=== PATIENT | female | born 1955 | race Caucasian/White ===

== ENCOUNTER 2017-09-30 11:03 | Emergency (ER) | payer OTHER ==
[2017-09-30] MEDS ORDERED: TETANUS/DIPHTHERIA/PERTUSSIS 0.5 ML SYRINGE IM ONE (11:33)
--- NOTE | 2017-09-30 11:38 | ED Physician Documentation ---
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 : None HEENT: None Psych: Depression Musculoskeletal: None Derm: None - Past Surgical History Past Surgical History: Yes - Present Medications Home Medications: Ambulatory Orders Medication Instructions Recorded Confirmed Aspirin [Aspir 81] 81 mg PO DAILY 11/28/14 01/01/16 Levothyroxine [Synthroid] 100 mcg PO DAILY 11/28/14 01/01/16 Metformin HCl 500 mg PO DAILY 11/28/14 01/01/16 Sertraline HCl [Zoloft] 100 mg PO DAILY 11/28/14 01/01/16 hydroCHLOROthiazide 1 tab PO DAILY 09/30/17 09/30/17 [Hydrochlorothiazide] - Allergies Allergies/Adverse Reactions: Allergies Allergy/AdvReac Type Severity Reaction Status Date / Time No Known Drug Allergies Allergy Verified 01/01/16 17:44 - Social History Does the pt smoke?: No Smoking Status: Never smoker Does the pt drink ETOH?: No Does the pt have substance abuse?: No - Immunizations Immunizations are current?: Yes - POLST Patient has POLST: No PD ED PE NORMAL - Vitals Vital signs reviewed: Yes - Extremities Extremities: Other (L 5th finger approx 1 cm flap lac to tip of finger, MSV intact, no FB seen or palpated, MSV intact) Results - Vitals Vitals: Vital Signs - 24 hr 09/30/17 11:16 Temperature 36.3 C L Heart Rate 65 Respiratory 16 Rate Blood Pressure 168/84 H O2 Saturation 100 Oxygen O2 Source Room air Departure - Departure Disposition: 01 Home, Self Care Clinical Impression: Laceration Condition: Good Instructions: ED Laceration Hand Comments: Leave the steri strips on until they fall off on their own in about a week You can trim the edges if they peel up. May wash your hands normally Please watch the wound for signs of infection such as redness swelling and discharge - return if infection develops Your tetanus shot was updated - please let your PMD know to update your records
[2017-09-30 12:53] VITALS: BP 138/76
== END 2017-09-30 12:54 | disposition home or self-care (01) ==
LOC: ED 11:03
DX: S61.217A Laceration without foreign body of left little finger without damage to nail, initial encounter (principal); W27.8XXA Contact with other nonpowered hand tool, initial encounter; Z23 Encounter for immunization; I10 Essential (primary) hypertension; E11.9 Type 2 diabetes mellitus without complications; Z79.84 Long term (current) use of oral hypoglycemic drugs; Z79.82 Long term (current) use of aspirin
CPT/HCPCS: 90471; 99282; 99283

== ENCOUNTER 2019-10-21 02:43 | Outpatient (CLI) | payer OTHER | END 2019-10-21 02:44 | disposition critical access hospital (66) | LOC: EMS 02:43 | PROVIDERS: ATTEND Surgery | DX: R07.9 Chest pain, unspecified (principal); R50.9 Fever, unspecified | CPT/HCPCS: A0425; A0427 ==

== ENCOUNTER 2019-10-21 03:05 | Inpatient (IN) | payer MEDICARE, OTHER ==
--- NOTE | 2019-10-21 03:02 | ED Physician Documentation ---
History of Present Illness - Stated complaint Stated Complaint: CP, COUGH - History obtained from History obtained from: Patient (84-year-old female who presents via ambulance with a chief complaint of cough and fever for several days she works at a [id number] she is very concerned that she could have COVID-19. She has a history of hypertension non-[id number] diabetes and hypothyroidism. She denies any headache, neck pain, rashes denies any syncopal episodes her main c omplaint is fever and cough.) Review of Systems Constitutional: reports: Fever Eyes: reports: Reviewed and negative Ears: reports: Reviewed and negative Nose: reports: Reviewed and negative Throat: reports: Reviewed and negative Cardiac: reports: Reviewed and negative Respiratory: reports: Cough GI: reports: Reviewed and negative : reports: Reviewed and negative Skin: reports: Reviewed and negative Musculoskeletal: reports: Reviewed and negative Neurologic: reports: Reviewed and negative Psychiatric: reports: Reviewed and negative Endocrine: reports: Reviewed and negative Immunocompromised: reports: Reviewed and negative PD PAST MEDICAL HISTORY - Present Medications Home Medications: Ambulatory Orders Medication Instructions Recorded Confirmed Aspirin [Aspir 81] 81 mg PO DAILY 11/28/14 10/21/19 Levothyroxine [Synthroid] 125 mcg PO DAILY 11/28/14 10/21/19 Metformin HCl 500 mg PO DAILY 11/28/14 10/21/19 Sertraline HCl [Zoloft] 100 mg PO DAILY 11/28/14 10/21/19 hydroCHLOROthiazide 1 tab PO DAILY 09/30/17 10/21/19 [Hydrochlorothiazide] Calcium/D3/Zinc/Copper/Sunshine 2 each PO BID 10/21/19 10/21/19 [Citracal-D3 Maximum Plus Caplt] Multivit with Calcium,Iron,Min 1 each PO DAILY 10/21/19 10/21/19 [One Daily Women's] - Allergies Allergies/Adverse Reactions: Allergies Allergy/AdvReac Type Severity Reaction Status Date / Time lisinopril AdvReac Rash Verified 10/21/19 05:19 PD ED PE NORMAL - Vitals Vital signs reviewed: Yes - General General: Alert and oriented X 3, No acute distress, Well developed/nourished - HEENT HEENT: Atraumatic, PERRL, Pharynx benign - Neck Neck: Supple, no meningeal sign - Cardiac Cardiac: RRR, No murmur, Strong equal pulses - Respiratory Respiratory: No respiratory distress, Clear bilaterally - Abdomen Abdomen: Normal bowel sounds, Soft, Non tender, Non distended, No organomegaly - Back Back: No CVA TTP, No spinal TTP - Derm Derm: Normal color, Warm and dry, No rash - Extremities Extremities: No deformity - Neuro Neuro: Alert and oriented X 3, access registrar 2-12 intact, No motor deficit, No sensory deficit, Normal speech - Psych Psych: Normal mood, Normal affect Results - Vitals Vitals: Vital Signs - 24 hr 10/21/19 10/21/19 10/21/19 03:15 03:44 04:15 Temperature 38.3 C H Heart Rate 70 79 64 Respiratory 15 16 15 Rate Blood Pressure 121/79 100/87 H 109/68 O2 Saturation 96 97 97 10/21/19 10/21/19 10/21/19 04:27 04:34 04:36 Temperature 37.2 C Heart Rate 60 Respiratory 19 16 Rate Blood Pressure 109/68 O2 Saturation 97 86 L 98 Oxygen O2 Source Room air - EKG (time done) 03:16 Rate: Other (no stemi) - Labs Labs: Laboratory Tests 10/21/19 10/21/19 10/21/19 03:25 03:25 03:25 WBC 13.5 H RBC 3.64 L Hgb 10.5 L Hct 31.4 L MCV 86.3 MCH 28.8 MCHC 33.4 RDW 13.1 Plt Count 329 MPV 10.4 Neut # (Auto) 10.2 H Lymph # (Auto) 2.1 [place] # (Auto) 1.1 H Eos # (Auto) 0.0 Baso # (Auto) 0.0 Absolute Nucleated RBC 0.00 Nucleated RBC % 0.0 PT 16.4 H INR 1.5 H APTT 29.2 Sodium 133 L Potassium 2.1 L* Chloride 90 L Carbon Dioxide 26 Anion Gap 17.0 H BUN 18 Creatinine 1.0 Estimated GFR (MDRD) 55 L Glucose 146 H Lactic Acid Calcium 7.2 L Total Bilirubin 1.1 H AST 57 H ALT 36 Alkaline Phosphatase 146 H Total Creatine Kinase 255 Troponin I High Sens B-Natriuretic Peptide Total Protein 8.1 Albumin 3.3 Globulin 4.8 H Albumin/Globulin Ratio 0.7 L Lipase 31 Urine Color Urine Clarity Urine pH Ur Specific [place] Urine Protein Urine Glucose (UA) Urine Ketones Urine Occult Blood Urine Nitrite Urine Bilirubin Urine Urobilinogen Ur Leukocyte Esterase Urine RBC Urine WBC Ur Squamous Epith Cells Urine Bacteria Urine Casts Ur Microscopic Review Urine Culture Comments Urine Opiates Screen Ur Oxycodone Screen Urine Methadone Screen Ur Propoxyphene Screen Ur Barbiturates Screen Ur Tricyclics Screen Ur Phencyclidine Scrn Ur Amphetamine Screen U Methamphetamines Scrn U Benzodiazepines Scrn Urine Cocaine Screen U Cannabinoids Screen Ethyl Alcohol < 5.0 Influenza A (Rapid) Influenza B (Rapid) 10/21/19 10/21/19 10/21/19 03:25 03:25 03:25 WBC RBC Hgb Hct MCV MCH MCHC RDW Plt Count MPV Neut # (Auto) Lymph # (Auto) [place] # (Auto) Eos # (Auto) Baso # (Auto) Absolute Nucleated RBC Nucleated RBC % PT INR APTT Sodium Potassium Chloride Carbon Dioxide Anion Gap BUN Creatinine Estimated GFR (MDRD) Glucose Lactic Acid 1.2 Calcium Total Bilirubin AST ALT Alkaline Phosphatase Total Creatine Kinase Troponin I High Sens 58.9 H* B-Natriuretic Peptide 94 Total Protein Albumin Globulin Albumin/Globulin Ratio Lipase Urine Color Urine Clarity Urine pH Ur Specific [place] Urine Protein Urine Glucose (UA) Urine Ketones Urine Occult Blood Urine Nitrite Urine Bilirubin Urine Urobilinogen Ur Leukocyte Esterase Urine RBC Urine WBC Ur Squamous Epith Cells Urine Bacteria Urine Casts Ur Microscopic Review Urine Culture Comments Urine Opiates Screen Ur Oxycodone Screen Urine Methadone Screen Ur Propoxyphene Screen Ur Barbiturates Screen Ur Tricyclics Screen Ur Phencyclidine Scrn Ur Amphetamine Screen U Methamphetamines Scrn U Benzodiazepines Scrn Urine Cocaine Screen U Cannabinoids Screen Ethyl Alcohol Influenza A (Rapid) Influenza B (Rapid) 10/21/19 10/21/19 03:32 03:55 WBC RBC Hgb Hct MCV MCH MCHC RDW Plt Count MPV Neut # (Auto) Lymph # (Auto) [place] # (Auto) Eos # (Auto) Baso # (Auto) Absolute Nucleated RBC Nucleated RBC % PT INR APTT Sodium Potassium Chloride Carbon Dioxide Anion Gap BUN Creatinine Estimated GFR (MDRD) Glucose Lactic Acid Calcium Total Bilirubin AST ALT Alkaline Phosphatase Total Creatine Kinase Troponin I High Sens B-Natriuretic Peptide Total Protein Albumin Globulin Albumin/Globulin Ratio Lipase Urine Color DARK YELLOW Urine Clarity SL. CLOUDY Urine pH 6.0 Ur Specific [place] >=1.030 H Urine Protein 100 H Urine Glucose (UA) NEGATIVE Urine Ketones TRACE Urine Occult Blood MODERATE H Urine Nitrite NEGATIVE Urine Bilirubin NEGATIVE Urine Urobilinogen 0.2 (NORMAL) Ur Leukocyte Esterase MODERATE H Urine RBC 6-10 H Urine WBC 6-10 H Ur Squamous Epith Cells MANY Squamous H Urine Bacteria Few Urine Casts 3-5 Hyaline Casts Ur Microscopic Review INDICATED Urine Culture Comments NOT INDICATED Urine Opiates Screen NEGATIVE Ur Oxycodone Screen NEGATIVE Urine Methadone Screen NEGATIVE Ur Propoxyphene Screen NEGATIVE Ur Barbiturates Screen NEGATIVE Ur Tricyclics Screen NEGATIVE Ur Phencyclidine Scrn NEGATIVE Ur Amphetamine Screen NEGATIVE U Methamphetamines Scrn NEGATIVE U Benzodiazepines Scrn NEGATIVE Urine Cocaine Screen NEGATIVE U Cannabinoids Screen NEGATIVE Ethyl Alcohol Influenza A (Rapid) Negative Influenza B (Rapid) Negative PD MEDICAL DECISION MAKING - ED course Complexity details: considered differential (Pneumonia, viral infection, viral bronchitis, COVID-19) - Consults Consults: Consulted (name) (racecourse barrier attendant at [facility] dr. nusrat penn. he does not recommend emergent tranfer or lab technologist for this patient. recommends admission here for observation and inpatient echo.) - Critical Care Time(min): 30 Time Includes: Direct patient care, Review records, Reassess patient, Document care, Coordinate care, Medical consult Data interpretation: CXR Procedures included in critical care time: Peripheral IV Procedures excluded from critical care time: EKG Departure - Departure Disposition: 66 [facility] DC/Xfer Clinical Impression: Hypokalemia, Hyponatremia, Elevated troponin Pneumonia Qualifiers: Pneumonia type: due to unspecified organism Laterality: left Lung location: lower lobe of lung Qualified Code(s): J18.9 - Pneumonia, unspecified organism Leukocytosis Qualifiers: Leukocytosis type: unspecified Qualified Code(s): D72.829 - Elevated white blood cell count, unspecified Condition: Stable
[2019-10-21] MEDS ORDERED: SODIUM CHLORIDE 0.9% 1,000 ML IV STA (03:27)
[2019-10-21] MEDS ORDERED: cefTRIAXone 1 GM in SODIUM CHLORIDE 0.9% MINIBAG 100 ML IV STA (03:27)
[2019-10-21] MEDS ORDERED: ACETAMINOPHEN 325 MG TABLET PO STA (03:27)
[2019-10-21 03:46] LABS: BASOPHILS % (AUTO) 0.2 %; HGB - HEMOGLOBIN 10.5 g/dL (12.0-16.0); LYMPHOCYTES # (AUTO) 2.1 10^3/uL (1.5-3.5); LYMPHOCYTES % (AUTO) 15.5 %; MEAN CORPUSCULAR HEMOGLOBIN 28.8 pg (27.0-31.0); MEAN CORPUSCULAR HGB CONC 33.4 g/dL (32.0-36.0); MEAN CORPUSCULAR VOLUME 86.3 fL (81.0-99.0); MEAN PLATELET VOLUME 10.4 fL (7.9-10.8); MONOCYTES # (AUTO) 1.1 10^3/uL (0.0-1.0); MONOCYTES % (AUTO) 8.1 %; NEUTROPHILS # (AUTO) 10.2 10^3/uL (1.5-6.6); NEUTROPHILS % (AUTO) 75.4 %; PLT - PLATELET COUNT 329 10^3/uL (130-450); RED BLOOD COUNT 3.64 10^6/uL (4.20-5.40); RED CELL DISTRIBUTION WIDTH 13.1 % (12.0-15.0); WHITE BLOOD COUNT 13.5 x10^3/uL (4.8-10.8)
[2019-10-21 03:51] LABS: INR 1.5 (0.8-1.2); PT - PROTHROMBIN TIME 16.4 secs (9.9-12.6)
[2019-10-21 03:58] LABS: PARTIAL THROMBOPLASTIN TIME 29.2 secs (24.9-33.3)
--- NOTE | 2019-10-21 04:06 | XRAY Report ---
Reason: fever cough Procedure Date: 10/21/2019 Accession Number: [id number] / [id number] Procedure: XR - Chest 1 View X-Ray CPT Code: 33917 Final Report FULL RESULT: EXAM: CHEST RADIOGRAPHY EXAM DATE: 10/21/2019 03:49 AM. CLINICAL HISTORY: Fever cough. COMPARISON: CT, 03/05/2011. TECHNIQUE: 1 view. FINDINGS: Lungs/Pleura: Left basilar opacity possibly representing pneumonia. Small left pleural effusion is suspected. Right lung appears clear. No pneumothorax seen. Mediastinum: Within exam limitations, the cardiomediastinal contour is normal. Other: None. IMPRESSION: 1. Left basilar opacity possibly representing pneumonia. Recommend radiographic follow-up to show resolution. 2. Suspect small left pleural effusion. RADIA
[2019-10-21 04:09] LABS: ALBUMIN 3.3 g/dL (3.2-5.5); ALBUMIN/GLOBULIN RATIO 0.7 (1.0-2.2); ALKALINE PHOSPHATASE 146 IU/L (42-121); ALT ALANINE AMINOTRANSFERASE 36 IU/L (10-60); AST ASPARTATE AMINOTRANSFERASE 57 IU/L (10-42); BILIRUBIN,TOTAL 1.1 mg/dL (0.2-1.0); BUN - BLOOD UREA NITROGEN 18 mg/dL (6-20); CALCIUM 7.2 mg/dL (8.5-10.3); CARBON DIOXIDE - CO2 26 mmol/L (21-32); CHLORIDE 90 mmol/L (101-111); CK- CREATINE KINASE 255 IU/L (22-269); GLUCOSE 146 mg/dL (70-100); LIPASE 31 U/L (22-51); SODIUM 133 mmol/L (135-145); TOTAL PROTEIN 8.1 g/dL (6.7-8.2)
[2019-10-21 04:12] LABS: MUDS CUTOFF CONCENTRATIONS CUTOFF CONC BELOW:
[2019-10-21 04:13] LABS: BILIRUBIN,URINE NEGATIVE (NEGATIVE); GLUCOSE, URINE (UA) NEGATIVE (NEGATIVE); KETONES,URINE (UA) TRACE mg/dL (NEGATIVE); LEUKOCYTE ESTERASE, URINE MODERATE (NEGATIVE); NITRITE,URINE NEGATIVE (NEGATIVE); OCCULT BLOOD,URINE MODERATE (NEGATIVE); PROTEIN,URINE 100 mg/dL (NEGATIVE); UROBILINOGEN,URINE 0.2 (NORMAL) E.U./dL (NORMAL)
[2019-10-21 04:14] LABS: CLARITY,URINE SL. CLOUDY (CLEAR)
[2019-10-21 04:19] LABS: BACTERIA,URINE Few /HPF (None Seen); CASTS, URINE 3-5 Hyaline Casts /LPF; SQUAMOUS EPITHELIAL CELL,UR MANY Squamous (<= Few)
[2019-10-21 04:23] LABS: AMPHETAMINE SCREEN,URINE NEGATIVE (NEGATIVE); BENZODIAZEPINES SCREEN, URINE NEGATIVE (NEGATIVE); COCAINE SCREEN URINE NEGATIVE (NEGATIVE); METHADONE SCREEN, URINE NEGATIVE (NEGATIVE); METHAMPHETAMINES SCREEN, URINE NEGATIVE (NEGATIVE); OPIATE SCREEN, URINE NEGATIVE (NEGATIVE); OXYCODONE SCREEN, URINE NEGATIVE (NEGATIVE); PROPOXYPHENE SCREEN, URINE NEGATIVE (NEGATIVE); TRICYCLIC ANTIDEPRESSANT,URINE NEGATIVE (NEGATIVE)
[2019-10-21] MEDS ORDERED: AZITHROMYCIN INJ 500 MG in SODIUM CHLORIDE 0.9% 250 ML IV STA (04:30)
[2019-10-21] MEDS ORDERED: POTASSIUM CHLORIDE 20 MEQ TABLET PO STA (04:31)
[2019-10-21] MEDS ORDERED: ONDANSETRON 4 MG/2 ML VIAL IVP STA (04:32)
[2019-10-21] MEDS ORDERED: ASPIRIN 325 MG TABLET PO STA (04:32)
[2019-10-21] MEDS ORDERED: ONDANSETRON 4 MG/2 ML VIAL IVP PRN (05:53)
--- NOTE | 2019-10-21 06:01 | HISTORY & PHYSICAL EXAMINATION ---
Chief Complaint - Chief Complaint Chief Complaint: dyspnea, fever, cough History of Present Illness - Admitted From Admitted From:: [facility] ED - History Obtained From Records Reviewed: yes History obtained from: patient - History of Present Illness HPI Comment/Other: Patient is a 64-year-old female who presented to the ED with complaint of d yspnea, cough and fever. Her highest temperature was 103 Fahrenheit. She started experiencing difficulty in breathing yesterday. She has been having fever for 5 days now. She denies any sick contacts. She denies generalized body aches. She denied chest pain, abdominal pain, nausea or vomiting. She reports headache. She had a COVID 19 testing done at the [facility]. Results are still pending. This was repeated in the ED. She does not smoke and does not use oxygen at home. Work-up in the ED included a CBC which showed a low white blood cell count of 13.5. She had a temperature of 38 C. Chest x-ray done was indicative of left basilar pneumonia. As a result of the above she was presented for admission for further management. 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 Social History Notes: She does not smoke, consume alcohol or illicit drugs. - POLST Patient has POLST: No POLST Status: Full Code Meds/Allgy - Home Medications Home Medications: Ambulatory Orders Medication Instructions Recorded Confirmed Aspirin [Aspir 81] 81 mg PO DAILY 11/28/14 10/21/19 Levothyroxine [Synthroid] 125 mcg PO DAILY 11/28/14 10/21/19 Metformin HCl 500 mg PO DAILY 11/28/14 10/21/19 Sertraline HCl [Zoloft] 100 mg PO DAILY 11/28/14 10/21/19 hydroCHLOROthiazide 1 tab PO DAILY 09/30/17 10/21/19 [Hydrochlorothiazide] Calcium/D3/Zinc/Copper/Sunshine 2 each PO BID 10/21/19 10/21/19 [Citracal-D3 Maximum Plus Caplt] Multivit with Calcium,Iron,Min 1 each PO DAILY 10/21/19 10/21/19 [One Daily Women's] - Allergies Allergies/Adverse Reactions: Allergies Allergy/AdvReac Type Severity Reaction Status Date / Time lisinopril AdvReac Rash Verified 10/21/19 05:19 Review of Systems - Constitutional Constitutional: reports: Fever. denies: Fatigue, Malaise - Eyes Eyes: denies: Pain - Ears, Nose & Throat Ears, Nose & Throat: denies: Vertigo, Sore throat - Cardiovascular Cariovascular: reports: Exertional dyspnea. denies: Irregular heart rate, Palpitations, Chest pain, Edema, Syncope, Decr. exercise tolerance - Respiratory Respiratory: reports: Cough, SOB at rest. denies: Wheezing - Gastrointestinal Gastrointestinal: denies: Abdominal pain, Abdominal distention, Nausea, Vomiting - Genitourinary Genitourinary: denies: Dysuria, Frequency - Musculoskeletal Musculoskeletal: denies: Muscle pain, Back pain, Muscle aches - Integumentary Integumentary: denies: Rash, Pruritis, Lesions - Neurological Neurological: reports: Headache. denies: General weakness, Dizziness - Psychiatric Psychiatric: reports: Depression - Endocrine Endocrine: denies: Polyuria, Polydypsia - Hematologic/Lymphatic Hematologic/Lymphatic: denies: Anemia, Bruising Prior Level of Functionality: She is independent of activities of daily living Exam - Vital Signs Vital Signs: Vital Signs x48h Temp Pulse Resp BP Pulse Ox 10/21/19 05:33 67 18 108/72 94 10/21/19 04:36 16 98 10/21/19 04:34 60 19 109/68 86 L 10/21/19 04:27 37.2 C 97 10/21/19 04:15 64 15 109/68 97 10/21/19 03:44 79 16 100/87 H 97 10/21/19 03:15 38.3 C H 70 15 121/79 96 - Physical Exam General Appearance: positive: No acute distress, Alert Eyes Bilateral: positive: PERRL, EOMI ENT: positive: No signs of dehydration Neck: positive: No JVD, Trachea midline Respiratory: positive: Chest non-tender, No respiratory distress, Breath sounds nml. negative: Wheezes, Rales, Rhonchi Cardiovascular: positive: Regular rate & rhythm Abdomen: positive: Non-tender, Nml bowel sounds. negative: Guarding, Rebound Back: positive: Nml inspection Skin: positive: Color nml, No rash, Warm, Dry Extremities: positive: Non-tender, Nml appearance, No pedal edema Neurologic/Psychiatric: positive: Oriented x3, Mood/affect nml Conclusion/Plan - Problem List (1) Pneumonia Conclusion/Plan: Likely community-acquired pneumonia. Patient started on Rocephin and azithromycin. Will continue. Blood cultures pending. COVID-19 testing pending. Patient had 1 done at [facility] and it was repeated in the emergency department here. Qualifiers: Pneumonia type: due to unspecified organism Laterality: left Lung location: lower lobe of lung Qualified Code(s): J18.9 - Pneumonia, unspecified organism (2) Elevated troponin Conclusion/Plan: Initial troponin was 58 with a repeat troponin of 51. Patient denied chest pain. Cardiac cause is less likely. We will trend x1 more. (3) Hypokalemia Conclusion/Plan: Will replace and recheck. We will also check magnesium level and replace accordingly. (4) Diabetes mellitus Conclusion/Plan: Patient is on metformin. We will resume once verified. (5) Hypothyroidism Conclusion/Plan: Patient is on Synthroid 125 mcg q. before meals. We will resume once verified. (6) Depression Conclusion/Plan: On sertraline - Lab Results Fish Bones: 10/21/19 03:25 10/21/19 03:25 Core Measures - Anticipated LOS I expect patient to be DC'd or transferred within 96 hours.: Yes - DVT/VTE - Prophylaxis VTE/DVT Device ordered at admit?: Yes VTE/DVT Prophylaxis med ordered at admit?: Yes
[2019-10-21] MEDS: POTASSIUM CHLOR 10 MEQ/100 ML 10 MEQ/100 ML BAG IV SCH ×4 (08:05→14:18)
[2019-10-21] MEDS: MULTIVITAMIN W/MINERALS TABLET PO SCH (08:05)
[2019-10-21] MEDS: LEVOTHYROXINE 125 MCG TABLET PO SCH (08:05)
[2019-10-21] MEDS: SODIUM CHLORIDE FLUSH 0.9% 10 ML SYRINGE IVP SCH ×2 (08:11→16:34)
[2019-10-21] MEDS ORDERED: metFORMIN 500 MG TABLET PO SCH (09:00)
[2019-10-21] MEDS: CALCIUM CARB (OYSTER SHELL) 500 MG TABLET PO SCH (10:08)
[2019-10-21] MEDS: SERTRALINE 50 MG TABLET PO SCH (10:08)
[2019-10-21] MEDS: ENOXAPARIN 40 MG/0.4 ML SYRINGE SUBQ SCH (10:09)
[2019-10-21] MEDS: CHOLECALCIFEROL 1,000 UNIT TABLET PO SCH (10:09)
[2019-10-21] MEDS: ASPIRIN EC 81 MG TABLET PO SCH (10:09)
[2019-10-21 11:47] LABS: HB2 TOTAL 10.7 g/dL; HEMOGLOBIN A1C 0.45 g/dL
[2019-10-21] MEDS: INSULIN ASPART 300 UNIT/3 ML PEN SUBQ SCH ×3 (11:57→20:42)
--- NOTE | 2019-10-21 12:22 | PHARMACY PROGRESS NOTE ---
- Best Possible Medication History Admit Date and Time: 10/21/19 0552 Processed by: Nursing Medication History completed: Yes As the person ultimately responsible for medication therapy, providers are able to order a medication from an existing home medication list in [facility] via the "Reconcile Routine" prior to Confirmation of that medication by sales support associate. Such practice is discouraged except when the physician, in their clinical judgment, deems that a medical need exists for a medication without regard to previous use.
[2019-10-21] MEDS: ACETAMINOPHEN 325 MG TABLET PO PRN (20:56)
[2019-10-21] MEDS: guaiFENesin/DEXTROMETHORPHAN 10 ML UDC PO PRN (20:56)
[2019-10-22] MEDS: SODIUM CHLORIDE FLUSH 0.9% 10 ML SYRINGE IVP SCH ×4 (01:01→23:38)
[2019-10-22 05:29] LABS: BASOPHILS % (AUTO) 0.4 %; EOSINOPHILS % (AUTO) 0.4 %; LYMPHOCYTES # (AUTO) 2.1 10^3/uL (1.5-3.5); LYMPHOCYTES % (AUTO) 22.1 %; MEAN CORPUSCULAR HEMOGLOBIN 28.4 pg (27.0-31.0); MEAN CORPUSCULAR HGB CONC 31.5 g/dL (32.0-36.0); MEAN CORPUSCULAR VOLUME 90.1 fL (81.0-99.0); MEAN PLATELET VOLUME 10.4 fL (7.9-10.8); MONOCYTES # (AUTO) 1.2 10^3/uL (0.0-1.0); MONOCYTES % (AUTO) 12.4 %; NEUTROPHILS % (AUTO) 64.2 %; PLT - PLATELET COUNT 299 10^3/uL (130-450); RED BLOOD COUNT 3.52 10^6/uL (4.20-5.40); RED CELL DISTRIBUTION WIDTH 13.8 % (12.0-15.0); WHITE BLOOD COUNT 9.4 x10^3/uL (4.8-10.8)
[2019-10-22 05:43] LABS: CALCIUM 6.8 mg/dL (8.5-10.3); CREATININE 0.8 mg/dL (0.4-1.0)
[2019-10-22] MEDS: LEVOTHYROXINE 125 MCG TABLET PO SCH (06:58)
[2019-10-22] MEDS: INSULIN ASPART 300 UNIT/3 ML PEN SUBQ SCH ×4 (08:22→21:33)
[2019-10-22] MEDS: SERTRALINE 50 MG TABLET PO SCH (08:29)
[2019-10-22] MEDS: ASPIRIN EC 81 MG TABLET PO SCH (08:30)
[2019-10-22] MEDS: CHOLECALCIFEROL 1,000 UNIT TABLET PO SCH (08:30)
[2019-10-22] MEDS: CALCIUM CARB (OYSTER SHELL) 500 MG TABLET PO SCH (08:30)
[2019-10-22] MEDS: AZITHROMYCIN INJ 500 MG in SODIUM CHLORIDE 0.9% 250 ML IV SCH (08:31)
[2019-10-22] MEDS: polyethylene glycoL 3350 17 GM PACKET PO SCH (08:32)
[2019-10-22] MEDS: ENOXAPARIN 40 MG/0.4 ML SYRINGE SUBQ SCH (08:32)
[2019-10-22] MEDS ORDERED: cefTRIAXone 1 GM in SODIUM CHLORIDE 0.9% MINIBAG 100 ML IV SCH (09:00)
[2019-10-22] MEDS: MULTIVITAMIN W/MINERALS TABLET PO SCH (09:09)
[2019-10-22] MEDS: cefTRIAXone 2 GM in SODIUM CHLORIDE 0.9% MINIBAG 100 ML IV SCH (10:44)
--- NOTE | 2019-10-22 16:46 | PROVIDER PROGRESS NOTE ---
Assessment/Plan - Problem List (1) Gram-negative bacteremia Assessment/Plan: Ceftriaxone is currently adequate at the dose of 2 g IV every 24 hours, for empiric coverage of gram-negative's. Await identification and then sensitivities. Will repeat a blood culture to assure that this 1 is negative at 48-hours. (2) CAP (community acquired pneumonia) Assessment/Plan: Zithromax and ceftriaxone have been started empirically. Treat symptoms if needed. She had COVID testing at the [facility] which is still pending. COVID test done here through the ER has returned and is COVID negative. Will stop respiratory isolation orders. (3) Diabetes mellitus Assessment/Plan: She was on metformin at home and A1c is 6.0 indicating excellent glucose control. Continue Metformin plus carb controlled diet plus sliding scale insulin coverage (4) Hypokalemia Assessment/Plan: Related to HCTZ use, was replaced, HCTZ on hold and she is getting gentle hydration Follow BMP daily. (5) Elevated troponin Assessment/Plan: 3 troponins were done: 58, 51, 38. Her EKG is abnormal with inferolateral T wave flattening. Would obtain an Echo to look for resting wall motion abnormalities, but no Echo available till Thursday however since this is the weekend and today is Thursday (6) Anemia Assessment/Plan: Possibly somewhat hemo-dilutional. We will check B12, folate, iron panel and replace if low (7) Hypothyroidism Assessment/Plan: TSH is adequate at 0.44 Continue home dose of Synthroid (8) Depression Assessment/Plan: Continue home dose of sertraline - Current Meds Current Meds: Current Medications Generic Name Dose Route Start Last Admin Trade Name Bridget PRN Reason Stop Dose Admin Acetaminophen 650 mg 10/21/19 05:53 10/21/19 20:56 Tylenol PO 650 mg Q6HR PRN Administration Pain 1 to 4 Aspirin 81 mg 10/21/19 09:00 10/22/19 08:30 Ecotrin PO 81 mg DAILY TESS Administration Calcium Carbonate/Glycine 1,000 mg 10/21/19 09:00 10/22/19 08:30 Oysco-500 PO 1,000 mg DAILY TESS Administration Cholecalciferol 1,000 unit 10/21/19 09:00 10/22/19 08:30 Vitamin D3 PO 1,000 unit DAILY TESS Administration Enoxaparin Sodium 40 mg 10/21/19 09:00 10/22/19 08:32 Lovenox SUBQ 40 mg DAILY TESS Administration Guaifenesin 10 ml 10/21/19 20:37 10/21/19 20:56 Robitussin Dm PO 10 ml Q6HR PRN Administration Cough Azithromycin 500 mg/ Sodium 250 mls @ 250 mls/hr 10/22/19 09:00 10/22/19 09:31 Chloride IV 10/23/19 09:59 Infused DAILY TESS Infusion Ceftriaxone Sodium 2 gm/ 100 mls @ 200 mls/hr 10/22/19 09:00 10/22/19 11:15 Sodium Chloride IV 10/25/19 09:29 Infused DAILY TESS Infusion Insulin Aspart 1 - 5 unit 10/21/19 12:00 10/22/19 12:55 Novolog SUBQ Not Given 0800,1200,1700,2100 [facility] Protocol Levothyroxine Sodium 125 mcg 10/21/19 07:00 10/22/19 06:58 Synthroid PO 125 mcg QDAC TESS Administration Multivitamins/Minerals 1 tab 10/21/19 08:00 10/22/19 09:09 Theragran M PO 1 tab DAILYWM TESS Administration Polyethylene Glycol 17 gm 10/22/19 09:00 10/22/19 08:32 Miralax PO 17 gm DAILY TESS Administration Sertraline HCl 100 mg 10/21/19 09:00 10/22/19 08:29 Zoloft PO 100 mg DAILY TESS Administration Sodium Chloride 10 ml 10/21/19 09:00 10/22/19 16:14 Normal Saline Flush 0.9% IVP 10 ml 0100,0900,1700 TESS Administration - Lab Result Fish Bone Diagrams: 10/22/19 05:00 10/22/19 05:00 Subjective - Subjective Patient Reports: Feeling Better, Resting Comfortably Objective Vital Signs: Vital Signs - 24 hr 10/21/19 10/22/19 10/22/19 20:25 00:00 05:10 Temperature 38.8 C H 36.9 C 37.2 C Heart Rate [ 91 62 64 Radial] Respiratory 16 18 16 Rate Blood Pressure 123/64 111/61 135/77 H [Right Radial artery] O2 Saturation 94 93 97 10/22/19 10/22/19 10/22/19 07:49 11:04 13:16 Temperature 37.6 C H 35.7 C L 36.2 C L Heart Rate [ 64 69 62 Radial] Respiratory 22 16 18 Rate Blood Pressure 128/62 122/77 118/71 [Right Radial artery] O2 Saturation 96 94 100 Oxygen O2 Source Room air I&O (Last 24 Hrs): Intake and Output Totals x24h 10/20/19 10/21/19 10/22/19 23:59 23:59 23:59 Intake Total 2089 990 Output Total 500 Balance 2089 490 General: Alert, Oriented x3 HEENT: Other (Edentulous) Neck: Supple Neuro: Alert, Non Focal Cardiovascular: Regular rate Respiratory: No respiratory distress Abdomen: Soft Extremities: No edema - Results Results: Laboratory Results WBC 9.4 x10^3/uL (4.8-10.8) 10/22/19 05:00 RBC 3.52 10^6/uL (4.20-5.40) L 10/22/19 05:00 Hgb 10.0 g/dL (12.0-16.0) L 10/22/19 05:00 Hct 31.7 % (37.0-47.0) L 10/22/19 05:00 MCV 90.1 fL (81.0-99.0) 10/22/19 05:00 MCH 28.4 pg (27.0-31.0) 10/22/19 05:00 MCHC 31.5 g/dL (32.0-36.0) L 10/22/19 05:00 RDW 13.8 % (12.0-15.0) 10/22/19 05:00 Plt Count 299 10^3/uL (130-450) 10/22/19 05:00 MPV 10.4 fL (7.9-10.8) 10/22/19 05:00 Neut # (Auto) 6.0 10^3/uL (1.5-6.6) 10/22/19 05:00 Lymph # (Auto) 2.1 10^3/uL (1.5-3.5) 10/22/19 05:00 [place] # (Auto) 1.2 10^3/uL (0.0-1.0) H 10/22/19 05:00 Eos # (Auto) 0.0 10^3/uL (0.0-0.7) 10/22/19 05:00 Baso # (Auto) 0.0 10^3/uL (0.0-0.1) 10/22/19 05:00 Absolute Nucleated RBC 0.00 x10^3/uL 10/22/19 05:00 Nucleated RBC % 0.0 /100WBC 10/22/19 05:00 PT 16.4 secs (9.9-12.6) H 10/21/19 03:25 INR 1.5 (0.8-1.2) H 10/21/19 03:25 APTT 29.2 secs (24.9-33.3) 10/21/19 03:25 Sodium 136 mmol/L (135-145) 10/22/19 05:00 Potassium 3.4 mmol/L (3.5-5.0) L 10/22/19 05:00 Chloride 99 mmol/L (101-111) L 10/22/19 05:00 Carbon Dioxide 26 mmol/L (21-32) 10/22/19 05:00 Anion Gap 11.0 (6-13) 10/22/19 05:00 BUN 18 mg/dL (6-20) 10/22/19 05:00 Creatinine 0.8 mg/dL (0.4-1.0) 10/22/19 05:00 Estimated GFR (MDRD) 72 (>89) L 10/22/19 05:00 Glucose 110 mg/dL (70-100) H 10/22/19 05:00 Glycated Hemoglobin 6.0 % (4.6-6.2) 10/21/19 11:15 Estim Average Glucose 126 (70-100) H 10/21/19 11:15 Lactic Acid 1.2 mmol/L (0.5-2.2) 10/21/19 03:25 Calcium 6.8 mg/dL (8.5-10.3) L 10/22/19 05:00 Magnesium 1.9 mg/dL (1.7-2.8) 10/21/19 05:07 Total Bilirubin 1.1 mg/dL (0.2-1.0) H 10/21/19 03:25 AST 57 IU/L (10-42) H 10/21/19 03:25 ALT 36 IU/L (10-60) 10/21/19 03:25 Alkaline Phosphatase 146 IU/L (42-121) H 10/21/19 03:25 Total Creatine Kinase 255 IU/L (22-269) 10/21/19 03:25 Troponin I High Sens 32.9 ng/L (2.3-14.8) H* 10/21/19 11:15 B-Natriuretic Peptide 94 pg/mL (5-100) 10/21/19 03:25 Total Protein 8.1 g/dL (6.7-8.2) 10/21/19 03:25 Albumin 3.3 g/dL (3.2-5.5) 10/21/19 03:25 Globulin 4.8 g/dL (2.1-4.2) H 10/21/19 03:25 Albumin/Globulin Ratio 0.7 (1.0-2.2) L 10/21/19 03:25 Lipase 31 U/L (22-51) 10/21/19 03:25 TSH 0.44 uIU/mL (0.34-5.60) 10/22/19 05:00 Urine Color DARK YELLOW 10/21/19 03:55 Urine Clarity SL. CLOUDY (CLEAR) 10/21/19 03:55 Urine pH 6.0 PH (5.0-7.5) 10/21/19 03:55 Ur Specific [place] >=1.030 (1.002-1.030) H 10/21/19 03:55 Urine Protein 100 mg/dL (NEGATIVE) H 10/21/19 03:55 Urine Glucose (UA) NEGATIVE mg/dL (NEGATIVE) 10/21/19 03:55 Urine Ketones TRACE mg/dL (NEGATIVE) 10/21/19 03:55 Urine Occult Blood MODERATE (NEGATIVE) H 10/21/19 03:55 Urine Nitrite NEGATIVE (NEGATIVE) 10/21/19 03:55 Urine Bilirubin NEGATIVE (NEGATIVE) 10/21/19 03:55 Urine Urobilinogen 0.2 (NORMAL) E.U./dL (NORMAL) 10/21/19 03:55 Ur Leukocyte Esterase MODERATE (NEGATIVE) H 10/21/19 03:55 Urine RBC 6-10 /HPF (0-5) H 10/21/19 03:55 Urine WBC 6-10 /HPF (0-5) H 10/21/19 03:55 Ur Squamous Epith Cells MANY Squamous (<= Few) H 10/21/19 03:55 Urine Bacteria Few /HPF (None Seen) 10/21/19 03:55 Urine Casts 3-5 Hyaline Casts /LPF 10/21/19 03:55 Ur Microscopic Review INDICATED 10/21/19 03:55 Urine Culture Comments NOT INDICATED 10/21/19 03:55 Urine Opiates Screen NEGATIVE (NEGATIVE) 10/21/19 03:55 Ur Oxycodone Screen NEGATIVE (NEGATIVE) 10/21/19 03:55 Urine Methadone Screen NEGATIVE (NEGATIVE) 10/21/19 03:55 Ur Propoxyphene Screen NEGATIVE (NEGATIVE) 10/21/19 03:55 Ur Barbiturates Screen NEGATIVE (NEGATIVE) 10/21/19 03:55 Ur Tricyclics Screen NEGATIVE (NEGATIVE) 10/21/19 03:55 Ur Phencyclidine Scrn NEGATIVE (NEGATIVE) 10/21/19 03:55 Ur Amphetamine Screen NEGATIVE (NEGATIVE) 10/21/19 03:55 U Methamphetamines Scrn NEGATIVE (NEGATIVE) 10/21/19 03:55 U Benzodiazepines Scrn NEGATIVE (NEGATIVE) 10/21/19 03:55 Urine Cocaine Screen NEGATIVE (NEGATIVE) 10/21/19 03:55 U Cannabinoids Screen NEGATIVE (NEGATIVE) 10/21/19 03:55 Ethyl Alcohol < 5.0 mg/dL 10/21/19 03:25 Coronavirus (PCR) NEGATIVE 10/21/19 03:32 Influenza A (Rapid) Negative (Negative) 10/21/19 03:32 Influenza B (Rapid) Negative (Negative) 10/21/19 03:32
[2019-10-22] MEDS: guaiFENesin/DEXTROMETHORPHAN 10 ML UDC PO PRN (23:56)
[2019-10-23 05:34] LABS: BASOPHILS % (AUTO) 0.4 %; EOSINOPHILS # (AUTO) 0.1 10^3/uL (0.0-0.7); EOSINOPHILS % (AUTO) 1.2 %; HGB - HEMOGLOBIN 9.9 g/dL (12.0-16.0); LYMPHOCYTES # (AUTO) 2.3 10^3/uL (1.5-3.5); LYMPHOCYTES % (AUTO) 27.9 %; MEAN CORPUSCULAR HEMOGLOBIN 27.3 pg (27.0-31.0); MEAN CORPUSCULAR HGB CONC 30.7 g/dL (32.0-36.0); MEAN PLATELET VOLUME 10.4 fL (7.9-10.8); MONOCYTES # (AUTO) 0.9 10^3/uL (0.0-1.0); NEUTROPHILS # (AUTO) 4.9 10^3/uL (1.5-6.6); NEUTROPHILS % (AUTO) 58.9 %; PLT - PLATELET COUNT 330 10^3/uL (130-450); RED BLOOD COUNT 3.63 10^6/uL (4.20-5.40); RED CELL DISTRIBUTION WIDTH 13.6 % (12.0-15.0); WHITE BLOOD COUNT 8.3 x10^3/uL (4.8-10.8)
[2019-10-23 05:55] LABS: CREATININE 0.8 mg/dL (0.4-1.0)
[2019-10-23 05:58] LABS: CALCIUM 6.5 mg/dL (8.5-10.3)
[2019-10-23] MEDS: LEVOTHYROXINE 125 MCG TABLET PO SCH (05:59)
[2019-10-23] MEDS: INSULIN ASPART 300 UNIT/3 ML PEN SUBQ SCH ×4 (08:02→21:36)
[2019-10-23] MEDS: CHOLECALCIFEROL 1,000 UNIT TABLET PO SCH (08:59)
[2019-10-23] MEDS: SERTRALINE 50 MG TABLET PO SCH (08:59)
[2019-10-23] MEDS: CALCIUM CARB (OYSTER SHELL) 500 MG TABLET PO SCH (08:59)
[2019-10-23] MEDS: MULTIVITAMIN W/MINERALS TABLET PO SCH (08:59)
[2019-10-23] MEDS: ASPIRIN EC 81 MG TABLET PO SCH (08:59)
[2019-10-23] MEDS: polyethylene glycoL 3350 17 GM PACKET PO SCH (09:00)
[2019-10-23] MEDS: SODIUM CHLORIDE FLUSH 0.9% 10 ML SYRINGE IVP PRN (09:00)
[2019-10-23] MEDS: SODIUM CHLORIDE FLUSH 0.9% 10 ML SYRINGE IVP SCH ×2 (09:00→16:40)
[2019-10-23] MEDS: ENOXAPARIN 40 MG/0.4 ML SYRINGE SUBQ SCH (09:00)
[2019-10-23] MEDS: guaiFENesin/DEXTROMETHORPHAN 10 ML UDC PO PRN (09:00)
[2019-10-23] MEDS: cefTRIAXone 2 GM in SODIUM CHLORIDE 0.9% MINIBAG 100 ML IV SCH (09:01)
[2019-10-23] MEDS: AZITHROMYCIN INJ 500 MG in SODIUM CHLORIDE 0.9% 250 ML IV SCH (09:55)
[2019-10-23] MEDS ORDERED: POTASSIUM CHLORIDE 20 MEQ TABLET PO SCH (10:00)
--- NOTE | 2019-10-23 13:08 | PROVIDER PROGRESS NOTE ---
Assessment/Plan - Problem List (1) Gram-negative bacteremia Assessment/Plan: The identification is of Diphtheroids from the blood cx. This is a common oral bacteria therefore this could be aspiration pneumonia leading to bacteremia We will switch to Unasyn IV (2) CAP (community acquired pneumonia) Assessment/Plan: She finished a course of Zithromax. She is getting IV ceftriaxone as well. There is no sputum culture to get a result but based on the blood culture result, she may have an aspiration pneumonia with diphtheroids which led to the bacteremia. Unasyn will be used for this, IV for 1 to 2 days before switching to oral (3) Diabetes mellitus Assessment/Plan: Her A1c was 6.0 at admission, indicating excellent glucose control Continue with carb controlled diet and sliding scale insulin (4) Hypocalcemia Assessment/Plan: Calcium is 6.5 with a normal albumin indicating severely low calcium stores. We will start Tums or oyster calcium replacement daily. I reviewed this with the patient, it should continue after discharge, especially since she says she knows her "bones are not strong". (5) Hypokalemia Assessment/Plan: Replace potassium Follow BMP daily (6) Anemia Qualifiers: Anemia type: iron deficiency Assessment/Plan: B12 and folate levels are fine, TBG and iron stores are low. We will start oral iron replacement. (7) Hypothyroidism Assessment/Plan: Her TSH is 0.44, adequate Continue with her home thyroid dose for replacement. (8) Depression Assessment/Plan: Continue with her home meds while here which are keeping her stable - Current Meds Current Meds: Current Medications Generic Name Dose Route Start Last Admin Trade Name Bridget PRN Reason Stop Dose Admin Acetaminophen 650 mg 10/21/19 05:53 10/21/19 20:56 Tylenol PO 650 mg Q6HR PRN Administration Pain 1 to 4 Aspirin 81 mg 10/21/19 09:00 10/23/19 08:59 Ecotrin PO 81 mg DAILY TESS Administration Calcium Carbonate/Glycine 1,000 mg 10/21/19 09:00 10/23/19 08:59 Oysco-500 PO 1,000 mg DAILY TESS Administration Cholecalciferol 1,000 unit 10/21/19 09:00 10/23/19 08:59 Vitamin D3 PO 1,000 unit DAILY TESS Administration Enoxaparin Sodium 40 mg 10/21/19 09:00 10/23/19 09:00 Lovenox SUBQ 40 mg DAILY TESS Administration Guaifenesin 10 ml 10/21/19 20:37 10/23/19 09:00 Robitussin Dm PO 10 ml Q6HR PRN Administration Cough Insulin Aspart 1 - 5 unit 10/21/19 12:00 10/23/19 12:10 Novolog SUBQ Not Given 0800,1200,1700,2100 [facility] Protocol Levothyroxine Sodium 125 mcg 10/21/19 07:00 10/23/19 05:59 Synthroid PO 125 mcg QDAC TESS Administration Multivitamins/Minerals 1 tab 10/21/19 08:00 10/23/19 08:59 Theragran M PO 1 tab DAILYWM TESS Administration Polyethylene Glycol 17 gm 10/22/19 09:00 10/23/19 09:00 Miralax PO Not Given DAILY TESS Potassium Chloride 20 meq 10/23/19 10:00 10/23/19 10:04 K-Dur PO 20 meq DAILYWM TESS Administration Sertraline HCl 100 mg 10/21/19 09:00 10/23/19 08:59 Zoloft PO 100 mg DAILY TESS Administration Sodium Chloride 10 ml 10/21/19 05:53 10/23/19 09:00 Normal Saline Flush 0.9% IVP 20 ml PRN PRN Administration NEEDED PER PROVIDER ORDERS Sodium Chloride 10 ml 10/21/19 09:00 10/23/19 09:00 Normal Saline Flush 0.9% IVP 10 ml 0100,0900,1700 TESS Administration - Lab Result Fish Bone Diagrams: 10/23/19 04:50 10/23/19 04:50 - Additional Planning My Orders: My Active Orders 10/22/19 16:57 Isolation [Isolation - Discontinue] [RC] .once 10/22/19 19:10 CULTURE, BLOOD #1 [RM] Stat 10/23/19 10:00 Potassium Chloride [K-Dur] 20 meq PO DAILYWM 10/23/19 18:00 Ampicillin/Sulbactam [Unasyn] 3 gm Sodium Chloride 0.9% Minibag [Normal Saline 0.9% Minibag] 100 ml IV Q6HR Subjective - Subjective Patient Reports: Feeling Better ("This is the first day that I do not have nausea and feel strong enough to walk to the window". No sputum production but has a dry cough.) Objective Vital Signs: Vital Signs - 24 hr 10/22/19 10/22/19 10/22/19 13:16 16:56 20:00 Temperature 36.2 C L 36.3 C L 36.8 C Heart Rate [ 62 64 Brachial] Heart Rate [ 62 Radial] Respiratory 18 16 16 Rate Blood Pressure 116/69 117/64 [Right Brachial artery] Blood Pressure 118/71 [Right Radial artery] O2 Saturation 100 93 98 10/22/19 10/23/19 10/23/19 23:40 04:50 07:55 Temperature 37.2 C 36.8 C 36.9 C Heart Rate [ 64 66 65 Brachial] Heart Rate [ Radial] Respiratory 16 16 16 Rate Blood Pressure 124/75 120/66 130/82 H [Right Brachial artery] Blood Pressure [Right Radial artery] O2 Saturation 95 94 96 10/23/19 10/23/19 11:05 12:42 Temperature 36.7 C 36.7 C Heart Rate [ 74 63 Brachial] Heart Rate [ Radial] Respiratory 18 16 Rate Blood Pressure 123/77 115/71 [Right Brachial artery] Blood Pressure [Right Radial artery] O2 Saturation 100 97 Oxygen O2 Source Room air I&O (Last 24 Hrs): Intake and Output Totals x24h 10/21/19 10/22/19 10/23/19 23:59 23:59 23:59 Intake Total 2089 1600 640 Output Total 800 Balance 2089 800 640 General: Alert, Oriented x3 HEENT: Mucous membr. moist/pink, Other (Edentulous upper mouth) Neck: Supple, No JVD Neuro: Alert, Non Focal Cardiovascular: Regular rate Respiratory: No respiratory distress Abdomen: Soft Extremities: No edema - Results Results: Laboratory Results WBC 8.3 x10^3/uL (4.8-10.8) 10/23/19 04:50 RBC 3.63 10^6/uL (4.20-5.40) L 10/23/19 04:50 Hgb 9.9 g/dL (12.0-16.0) L 10/23/19 04:50 Hct 32.3 % (37.0-47.0) L 10/23/19 04:50 MCV 89.0 fL (81.0-99.0) 10/23/19 04:50 MCH 27.3 pg (27.0-31.0) 10/23/19 04:50 MCHC 30.7 g/dL (32.0-36.0) L 10/23/19 04:50 RDW 13.6 % (12.0-15.0) 10/23/19 04:50 Plt Count 330 10^3/uL (130-450) 10/23/19 04:50 MPV 10.4 fL (7.9-10.8) 10/23/19 04:50 Neut # (Auto) 4.9 10^3/uL (1.5-6.6) 10/23/19 04:50 Lymph # (Auto) 2.3 10^3/uL (1.5-3.5) 10/23/19 04:50 [place] # (Auto) 0.9 10^3/uL (0.0-1.0) 10/23/19 04:50 Eos # (Auto) 0.1 10^3/uL (0.0-0.7) 10/23/19 04:50 Baso # (Auto) 0.0 10^3/uL (0.0-0.1) 10/23/19 04:50 Absolute Nucleated RBC 0.00 x10^3/uL 10/23/19 04:50 Nucleated RBC % 0.0 /100WBC 10/23/19 04:50 PT 16.4 secs (9.9-12.6) H 10/21/19 03:25 INR 1.5 (0.8-1.2) H 10/21/19 03:25 APTT 29.2 secs (24.9-33.3) 10/21/19 03:25 Sodium 139 mmol/L (135-145) 10/23/19 04:50 Potassium 3.2 mmol/L (3.5-5.0) L 10/23/19 04:50 Chloride 101 mmol/L (101-111) 10/23/19 04:50 Carbon Dioxide 26 mmol/L (21-32) 10/23/19 04:50 Anion Gap 12.0 (6-13) 10/23/19 04:50 BUN 15 mg/dL (6-20) 10/23/19 04:50 Creatinine 0.8 mg/dL (0.4-1.0) 10/23/19 04:50 Estimated GFR (MDRD) 72 (>89) L 10/23/19 04:50 Glucose 113 mg/dL (70-100) H 10/23/19 04:50 Glycated Hemoglobin 6.0 % (4.6-6.2) 10/21/19 11:15 Estim Average Glucose 126 (70-100) H 10/21/19 11:15 Lactic Acid 1.2 mmol/L (0.5-2.2) 10/21/19 03:25 Calcium 6.5 mg/dL (8.5-10.3) L* 10/23/19 04:50 Magnesium 1.9 mg/dL (1.7-2.8) 10/21/19 05:07 Iron 39 ug/dL (28-170) 10/23/19 04:50 TIBC 259 ug/dL (250-450) 10/23/19 04:50 % Saturation 15 % (20-50) L 10/23/19 04:50 Transferrin 185 mg/dL (192-382) L 10/23/19 04:50 Total Bilirubin 1.1 mg/dL (0.2-1.0) H 10/21/19 03:25 AST 57 IU/L (10-42) H 10/21/19 03:25 ALT 36 IU/L (10-60) 10/21/19 03:25 Alkaline Phosphatase 146 IU/L (42-121) H 10/21/19 03:25 Total Creatine Kinase 255 IU/L (22-269) 10/21/19 03:25 Troponin I High Sens 32.9 ng/L (2.3-14.8) H* 10/21/19 11:15 B-Natriuretic Peptide 94 pg/mL (5-100) 10/21/19 03:25 Total Protein 8.1 g/dL (6.7-8.2) 10/21/19 03:25 Albumin 3.3 g/dL (3.2-5.5) 10/21/19 03:25 Globulin 4.8 g/dL (2.1-4.2) H 10/21/19 03:25 Albumin/Globulin Ratio 0.7 (1.0-2.2) L 10/21/19 03:25 Lipase 31 U/L (22-51) 05/22/20 03:25 Vitamin B12 684 pg/mL (180-914) 10/23/19 04:50 Folate 34.00 ng/mL (5.90 - >24.8) 10/23/19 04:50 TSH 0.44 uIU/mL (0.34-5.60) 10/22/19 05:00 Urine Color DARK YELLOW 10/21/19 03:55 Urine Clarity SL. CLOUDY (CLEAR) 10/21/19 03:55 Urine pH 6.0 PH (5.0-7.5) 10/21/19 03:55 Ur Specific [place] >=1.030 (1.002-1.030) H 10/21/19 03:55 Urine Protein 100 mg/dL (NEGATIVE) H 10/21/19 03:55 Urine Glucose (UA) NEGATIVE mg/dL (NEGATIVE) 10/21/19 03:55 Urine Ketones TRACE mg/dL (NEGATIVE) 10/21/19 03:55 Urine Occult Blood MODERATE (NEGATIVE) H 10/21/19 03:55 Urine Nitrite NEGATIVE (NEGATIVE) 10/21/19 03:55 Urine Bilirubin NEGATIVE (NEGATIVE) 10/21/19 03:55 Urine Urobilinogen 0.2 (NORMAL) E.U./dL (NORMAL) 10/21/19 03:55 Ur Leukocyte Esterase MODERATE (NEGATIVE) H 10/21/19 03:55 Urine RBC 6-10 /HPF (0-5) H 10/21/19 03:55 Urine WBC 6-10 /HPF (0-5) H 10/21/19 03:55 Ur Squamous Epith Cells MANY Squamous (<= Few) H 10/21/19 03:55 Urine Bacteria Few /HPF (None Seen) 10/21/19 03:55 Urine Casts 3-5 Hyaline Casts /LPF 10/21/19 03:55 Ur Microscopic Review INDICATED 10/21/19 03:55 Urine Culture Comments NOT INDICATED 10/21/19 03:55 Urine Opiates Screen NEGATIVE (NEGATIVE) 10/21/19 03:55 Ur Oxycodone Screen NEGATIVE (NEGATIVE) 10/21/19 03:55 Urine Methadone Screen NEGATIVE (NEGATIVE) 10/21/19 03:55 Ur Propoxyphene Screen NEGATIVE (NEGATIVE) 10/21/19 03:55 Ur Barbiturates Screen NEGATIVE (NEGATIVE) 10/21/19 03:55 Ur Tricyclics Screen NEGATIVE (NEGATIVE) 10/21/19 03:55 Ur Phencyclidine Scrn NEGATIVE (NEGATIVE) 10/21/19 03:55 Ur Amphetamine Screen NEGATIVE (NEGATIVE) 10/21/19 03:55 U Methamphetamines Scrn NEGATIVE (NEGATIVE) 10/21/19 03:55 U Benzodiazepines Scrn NEGATIVE (NEGATIVE) 10/21/19 03:55 Urine Cocaine Screen NEGATIVE (NEGATIVE) 10/21/19 03:55 U Cannabinoids Screen NEGATIVE (NEGATIVE) 10/21/19 03:55 Ethyl Alcohol < 5.0 mg/dL 10/21/19 03:25 Coronavirus (PCR) NEGATIVE 10/21/19 03:32 Influenza A (Rapid) Negative (Negative) 10/21/19 03:32 Influenza B (Rapid) Negative (Negative) 10/21/19 03:32
[2019-10-23] MEDS: SACCHAROMYCES BOULARDII 250 MG CAPSULE PO SCH ×2 (14:56→16:40)
[2019-10-23] MEDS: AMPICILLIN/SULBACTAM 3 GM in SODIUM CHLORIDE 0.9% MINIBAG 100 ML IV SCH (17:29)
[2019-10-24] MEDS: AMPICILLIN/SULBACTAM 3 GM in SODIUM CHLORIDE 0.9% MINIBAG 100 ML IV SCH ×4 (00:17→17:43)
[2019-10-24] MEDS: SODIUM CHLORIDE FLUSH 0.9% 10 ML SYRINGE IVP SCH ×3 (00:17→16:51)
[2019-10-24] MEDS: SODIUM CHLORIDE FLUSH 0.9% 10 ML SYRINGE IVP PRN ×3 (00:55→17:44)
[2019-10-24 05:29] LABS: BASOPHILS % (AUTO) 0.4 %; EOSINOPHILS # (AUTO) 0.2 10^3/uL (0.0-0.7); EOSINOPHILS % (AUTO) 2.6 %; HGB - HEMOGLOBIN 9.3 g/dL (12.0-16.0); LYMPHOCYTES # (AUTO) 2.9 10^3/uL (1.5-3.5); LYMPHOCYTES % (AUTO) 36.6 %; MEAN CORPUSCULAR HEMOGLOBIN 28.1 pg (27.0-31.0); MEAN CORPUSCULAR HGB CONC 31.2 g/dL (32.0-36.0); MEAN PLATELET VOLUME 9.9 fL (7.9-10.8); MONOCYTES # (AUTO) 0.7 10^3/uL (0.0-1.0); MONOCYTES % (AUTO) 9.2 %; NEUTROPHILS % (AUTO) 49.8 %; PLT - PLATELET COUNT 358 10^3/uL (130-450); RED BLOOD COUNT 3.31 10^6/uL (4.20-5.40); RED CELL DISTRIBUTION WIDTH 13.6 % (12.0-15.0)
[2019-10-24 05:37] LABS: CREATININE 0.7 mg/dL (0.4-1.0)
[2019-10-24] MEDS: LEVOTHYROXINE 125 MCG TABLET PO SCH (06:11)
--- NOTE | 2019-10-24 08:23 | PROVIDER PROGRESS NOTE ---
Assessment/Plan - Problem List (1) Gram-negative bacteremia Assessment/Plan: The identification was diphtheria, which may be a contaminant but is found in oral suzan therefore it may have caused the pneumonia which may have caused a bacteremia. Her IV antibiotics were changed based on the identification. We will plan a 2-week course of antibiotics, transition to orals starting tomorrow and possible discharge home (2) CAP (community acquired pneumonia) Assessment/Plan: Patient had a dry cough, never made any sputum for a culture. She is much less short of breath, able to tolerate room air today. Antibiotic management as above in #1 (3) Diabetes mellitus Assessment/Plan: Her A1c was 6.0 at admission, indicating excellent glucose control Continue with carb controlled diet and sliding scale insulin while here. (4) Hypocalcemia Assessment/Plan: Calcium was6.8>> 6.5>> 6.0 today, with a normal serum Albumin, indicating very low calcium stores. Will start Tums or oyster calcium replacement daily. I reviewed this with the patient, it should continue after discharge, especially since she says she knows her "bones are not strong". Today's brief symptom of "tingling" may have also been from hypocalcemia. (5) Hypokalemia Assessment/Plan: She has been hypokalemic every day here, despite replacement. Will increase her daily potassium 20 mEq to bid. Follow BMP day (6) Anemia Qualifiers: Anemia type: iron deficiency Assessment/Plan: B12 and folate levels are fine, TBG and iron stores are low. Started oral iron replacement. (7) Hypothyroidism Assessment/Plan: Her TSH is 0.44, adequate Continue with her home thyroid dose for replacement. (8) Depression Assessment/Plan: Continue with her home meds while here which are keeping her stable - Current Meds Current Meds: Current Medications Generic Name Dose Route Start Last Admin Trade Name Freq PRN Reason Stop Dose Admin Acetaminophen 650 mg 10/21/19 05:53 10/21/19 20:56 Tylenol PO 650 mg Q6HR PRN Administration Pain 1 to 4 Aspirin 81 mg 10/21/19 09:00 10/23/19 08:59 Ecotrin PO 81 mg DAILY TESS Administration Calcium Carbonate/Glycine 1,000 mg 10/21/19 09:00 10/23/19 08:59 Oysco-500 PO 1,000 mg DAILY TESS Administration Cholecalciferol 1,000 unit 10/21/19 09:00 10/23/19 08:59 Vitamin D3 PO 1,000 unit DAILY TESS Administration Enoxaparin Sodium 40 mg 10/21/19 09:00 10/23/19 09:00 Lovenox SUBQ 40 mg DAILY TESS Administration Guaifenesin 10 ml 10/21/19 20:37 10/23/19 09:00 Robitussin Dm PO 10 ml Q6HR PRN Administration Cough Ampicillin Sodium/Sulbactam 100 mls @ 200 mls/hr 10/23/19 18:00 10/24/19 06:37 Sodium 3 gm/ Sodium Chloride IV Infused Q6HR TESS Infusion Insulin Aspart 1 - 5 unit 10/21/19 12:00 10/23/19 21:36 Novolog SUBQ Not Given 0800,1200,1700,2100 [facility] Protocol Levothyroxine Sodium 125 mcg 10/21/19 07:00 10/24/19 06:11 Synthroid PO 125 mcg QDAC TESS Administration Multivitamins/Minerals 1 tab 10/21/19 08:00 10/23/19 08:59 Theragran M PO 1 tab DAILYWM TESS Administration Polyethylene Glycol 17 gm 10/22/19 09:00 10/23/19 09:00 Miralax PO Not Given DAILY [facility] Potassium Chloride 20 meq 10/23/19 10:00 10/23/19 10:04 K-Dur PO 20 meq DAILYWM TESS Administration Saccharomyces Boulardii 250 mg 10/23/19 13:32 10/23/19 16:40 Florastor PO 250 mg BIDWM TESS Administration Sertraline HCl 100 mg 10/21/19 09:00 10/23/19 08:59 Zoloft PO 100 mg DAILY TESS Administration Sodium Chloride 10 ml 10/21/19 05:53 10/24/19 06:07 Normal Saline Flush 0.9% IVP 10 ml PRN PRN Administration NEEDED PER PROVIDER ORDERS Sodium Chloride 10 ml 10/21/19 09:00 10/24/19 00:17 Normal Saline Flush 0.9% IVP 10 ml 0100,0900,1700 TESS Administration - Lab Result Fish Bone Diagrams: 10/24/19 05:13 10/24/19 05:13 - Additional Planning My Orders: My Active Orders 10/23/19 10:00 Potassium Chloride [K-Dur] 20 meq PO DAILYWM 10/23/19 13:32 Saccharomyces Boulardii [Florastor] 250 mg PO BIDWM 10/23/19 18:00 Ampicillin/Sulbactam [Unasyn] 3 gm Sodium Chloride 0.9% Minibag [Normal Saline 0.9% Minibag] 100 ml IV Q6HR 10/23/19 Dinner DIET [Soft Mechanical Diet] [DIET] 10/24/19 09:00 Potassium Chloride [K-Dur] 20 meq PO BID Subjective - Subjective Patient Reports: Fatigue (She reports being tired and wants to nap. She is able to do all ADLs now and has no nausea with food.), Other (She reported having tingling of the entire right side of her face and right arm and hand today.) Objective Vital Signs: Vital Signs - 24 hr 10/23/19 10/23/19 10/23/19 11:05 12:42 16:04 Temperature 36.7 C 36.7 C 36.6 C Heart Rate [ 74 63 62 Brachial] Respiratory 18 16 16 Rate Blood Pressure 123/77 115/71 123/74 [Right Brachial artery] O2 Saturation 100 97 97 10/23/19 10/23/19 10/24/19 19:24 23:40 05:45 Temperature 36.9 C 36.9 C 36.7 C Heart Rate [ 62 60 61 Brachial] Respiratory 16 16 16 Rate Blood Pressure 133/76 H 121/73 144/78 H [Right Brachial artery] O2 Saturation 94 95 98 Oxygen O2 Source Room air I&O (Last 24 Hrs): Intake and Output Totals x24h 10/22/19 10/23/19 10/24/19 23:59 23:59 23:59 Intake Total 1600 1870 200 Output Total 800 325 300 Balance 800 1545 -100 General: Alert, Oriented x3 HEENT: Mucous membr. moist/pink, Other (No Chvostek sign during tapping of the upper jaw. Sensation normal.) Neck: Supple, No JVD Neuro: Alert, Non Focal Cardiovascular: Regular rate, No murmurs Respiratory: No respiratory distress, Breath sounds nml Abdomen: Soft Extremities: No edema, Other (Sensation of the right hand compared to left was normal and no Chvostek sign.) - Results Results: Laboratory Results WBC 8.0 x10^3/uL (4.8-10.8) 10/24/19 05:13 RBC 3.31 10^6/uL (4.20-5.40) L 10/24/19 05:13 Hgb 9.3 g/dL (12.0-16.0) L 10/24/19 05:13 Hct 29.8 % (37.0-47.0) L 10/24/19 05:13 MCV 90.0 fL (81.0-99.0) 10/24/19 05:13 MCH 28.1 pg (27.0-31.0) 10/24/19 05:13 MCHC 31.2 g/dL (32.0-36.0) L 10/24/19 05:13 RDW 13.6 % (12.0-15.0) 10/24/19 05:13 Plt Count 358 10^3/uL (130-450) 10/24/19 05:13 MPV 9.9 fL (7.9-10.8) 10/24/19 05:13 Neut # (Auto) 4.0 10^3/uL (1.5-6.6) 10/24/19 05:13 Lymph # (Auto) 2.9 10^3/uL (1.5-3.5) 10/24/19 05:13 [place] # (Auto) 0.7 10^3/uL (0.0-1.0) 10/24/19 05:13 Eos # (Auto) 0.2 10^3/uL (0.0-0.7) 10/24/19 05:13 Baso # (Auto) 0.0 10^3/uL (0.0-0.1) 10/24/19 05:13 Absolute Nucleated RBC 0.00 x10^3/uL 10/24/19 05:13 Nucleated RBC % 0.0 /100WBC 10/24/19 05:13 PT 16.4 secs (9.9-12.6) H 10/21/19 03:25 INR 1.5 (0.8-1.2) H 10/21/19 03:25 APTT 29.2 secs (24.9-33.3) 10/21/19 03:25 Sodium 138 mmol/L (135-145) 10/24/19 05:13 Potassium 3.3 mmol/L (3.5-5.0) L 10/24/19 05:13 Chloride 104 mmol/L (101-111) 10/24/19 05:13 Carbon Dioxide 25 mmol/L (21-32) 10/24/19 05:13 Anion Gap 9.0 (6-13) 10/24/19 05:13 BUN 12 mg/dL (6-20) 10/24/19 05:13 Creatinine 0.7 mg/dL (0.4-1.0) 10/24/19 05:13 Estimated GFR (MDRD) 84 (>89) L 10/24/19 05:13 Glucose 104 mg/dL (70-100) H 10/24/19 05:13 Glycated Hemoglobin 6.0 % (4.6-6.2) 10/21/19 11:15 Estim Average Glucose 126 (70-100) H 10/21/19 11:15 Lactic Acid 1.2 mmol/L (0.5-2.2) 10/21/19 03:25 Calcium 6.0 mg/dL (8.5-10.3) L* 10/24/19 05:13 Magnesium 1.9 mg/dL (1.7-2.8) 10/21/19 05:07 Iron 39 ug/dL (28-170) 10/23/19 04:50 TIBC 259 ug/dL (250-450) 10/23/19 04:50 % Saturation 15 % (20-50) L 10/23/19 04:50 Transferrin 185 mg/dL (192-382) L 10/23/19 04:50 Total Bilirubin 1.1 mg/dL (0.2-1.0) H 10/21/19 03:25 AST 57 IU/L (10-42) H 10/21/19 03:25 ALT 36 IU/L (10-60) 10/21/19 03:25 Alkaline Phosphatase 146 IU/L (42-121) H 10/21/19 03:25 Total Creatine Kinase 255 IU/L (22-269) 10/21/19 03:25 Troponin I High Sens 32.9 ng/L (2.3-14.8) H* 10/21/19 11:15 B-Natriuretic Peptide 94 pg/mL (5-100) 10/21/19 03:25 Total Protein 8.1 g/dL (6.7-8.2) 10/21/19 03:25 Albumin 3.3 g/dL (3.2-5.5) 10/21/19 03:25 Globulin 4.8 g/dL (2.1-4.2) H 10/21/19 03:25 Albumin/Globulin Ratio 0.7 (1.0-2.2) L 10/21/19 03:25 Lipase 31 U/L (22-51) 10/21/19 03:25 Vitamin B12 684 pg/mL (180-914) 10/23/19 04:50 Folate 34.00 ng/mL (5.90 - >24.8) 10/23/19 04:50 TSH 0.44 uIU/mL (0.34-5.60) 10/22/19 05:00 Urine Color DARK YELLOW 10/21/19 03:55 Urine Clarity SL. CLOUDY (CLEAR) 10/21/19 03:55 Urine pH 6.0 PH (5.0-7.5) 10/21/19 03:55 Ur Specific [place] >=1.030 (1.002-1.030) H 10/21/19 03:55 Urine Protein 100 mg/dL (NEGATIVE) H 10/21/19 03:55 Urine Glucose (UA) NEGATIVE mg/dL (NEGATIVE) 10/21/19 03:55 Urine Ketones TRACE mg/dL (NEGATIVE) 10/21/19 03:55 Urine Occult Blood MODERATE (NEGATIVE) H 10/21/19 03:55 Urine Nitrite NEGATIVE (NEGATIVE) 10/21/19 03:55 Urine Bilirubin NEGATIVE (NEGATIVE) 10/21/19 03:55 Urine Urobilinogen 0.2 (NORMAL) E.U./dL (NORMAL) 10/21/19 03:55 Ur Leukocyte Esterase MODERATE (NEGATIVE) H 10/21/19 03:55 Urine RBC 6-10 /HPF (0-5) H 10/21/19 03:55 Urine WBC 6-10 /HPF (0-5) H 10/21/19 03:55 Ur Squamous Epith Cells MANY Squamous (<= Few) H 10/21/19 03:55 Urine Bacteria Few /HPF (None Seen) 10/21/19 03:55 Urine Casts 3-5 Hyaline Casts /LPF 10/21/19 03:55 Ur Microscopic Review INDICATED 10/21/19 03:55 Urine Culture Comments NOT INDICATED 10/21/19 03:55 Urine Opiates Screen NEGATIVE (NEGATIVE) 10/21/19 03:55 Ur Oxycodone Screen NEGATIVE (NEGATIVE) 10/21/19 03:55 Urine Methadone Screen NEGATIVE (NEGATIVE) 10/21/19 03:55 Ur Propoxyphene Screen NEGATIVE (NEGATIVE) 10/21/19 03:55 Ur Barbiturates Screen NEGATIVE (NEGATIVE) 10/21/19 03:55 Ur Tricyclics Screen NEGATIVE (NEGATIVE) 10/21/19 03:55 Ur Phencyclidine Scrn NEGATIVE (NEGATIVE) 10/21/19 03:55 Ur Amphetamine Screen NEGATIVE (NEGATIVE) 10/21/19 03:55 U Methamphetamines Scrn NEGATIVE (NEGATIVE) 10/21/19 03:55 U Benzodiazepines Scrn NEGATIVE (NEGATIVE) 10/21/19 03:55 Urine Cocaine Screen NEGATIVE (NEGATIVE) 10/21/19 03:55 U Cannabinoids Screen NEGATIVE (NEGATIVE) 10/21/19 03:55 Ethyl Alcohol < 5.0 mg/dL 10/21/19 03:25 Coronavirus (PCR) NEGATIVE 10/21/19 03:32 Influenza A (Rapid) Negative (Negative) 10/21/19 03:32 Influenza B (Rapid) Negative (Negative) 10/21/19 03:32
[2019-10-24] MEDS: INSULIN ASPART 300 UNIT/3 ML PEN SUBQ SCH ×4 (08:44→21:17)
[2019-10-24] MEDS: SACCHAROMYCES BOULARDII 250 MG CAPSULE PO SCH ×2 (08:50→16:51)
[2019-10-24] MEDS: MULTIVITAMIN W/MINERALS TABLET PO SCH (08:50)
[2019-10-24] MEDS: SERTRALINE 50 MG TABLET PO SCH (08:51)
[2019-10-24] MEDS: POTASSIUM CHLORIDE 20 MEQ TABLET PO SCH ×2 (08:51→21:25)
[2019-10-24] MEDS: CALCIUM CARB (OYSTER SHELL) 500 MG TABLET PO SCH (08:51)
[2019-10-24] MEDS: CHOLECALCIFEROL 1,000 UNIT TABLET PO SCH (08:51)
[2019-10-24] MEDS: polyethylene glycoL 3350 17 GM PACKET PO SCH (08:54)
[2019-10-24] MEDS: ENOXAPARIN 40 MG/0.4 ML SYRINGE SUBQ SCH (08:56)
[2019-10-24] MEDS: ASPIRIN EC 81 MG TABLET PO SCH (09:01)
[2019-10-25] MEDS: AMPICILLIN/SULBACTAM 3 GM in SODIUM CHLORIDE 0.9% MINIBAG 100 ML IV SCH ×5 (00:16→23:28)
[2019-10-25] MEDS: SODIUM CHLORIDE FLUSH 0.9% 10 ML SYRINGE IVP SCH ×4 (00:17→23:28)
[2019-10-25] MEDS: LEVOTHYROXINE 125 MCG TABLET PO SCH (05:57)
[2019-10-25 06:00] LABS: BASOPHILS # (AUTO) 0.1 10^3/uL (0.0-0.1); BASOPHILS % (AUTO) 0.6 %; EOSINOPHILS # (AUTO) 0.3 10^3/uL (0.0-0.7); EOSINOPHILS % (AUTO) 3.4 %; HGB - HEMOGLOBIN 9.7 g/dL (12.0-16.0); LYMPHOCYTES # (AUTO) 2.6 10^3/uL (1.5-3.5); LYMPHOCYTES % (AUTO) 29.9 %; MEAN CORPUSCULAR HEMOGLOBIN 28.4 pg (27.0-31.0); MEAN CORPUSCULAR HGB CONC 31.8 g/dL (32.0-36.0); MEAN CORPUSCULAR VOLUME 89.4 fL (81.0-99.0); MEAN PLATELET VOLUME 9.6 fL (7.9-10.8); MONOCYTES # (AUTO) 0.9 10^3/uL (0.0-1.0); MONOCYTES % (AUTO) 10.6 %; NEUTROPHILS # (AUTO) 4.5 10^3/uL (1.5-6.6); NEUTROPHILS % (AUTO) 53.2 %; PLT - PLATELET COUNT 399 10^3/uL (130-450); RED BLOOD COUNT 3.41 10^6/uL (4.20-5.40); RED CELL DISTRIBUTION WIDTH 13.5 % (12.0-15.0); WHITE BLOOD COUNT 8.6 x10^3/uL (4.8-10.8)
[2019-10-25 06:13] LABS: CREATININE 0.8 mg/dL (0.4-1.0)
[2019-10-25 06:15] LABS: CALCIUM 5.9 mg/dL (8.5-10.3)
[2019-10-25] MEDS ORDERED: CALCIUM GLUCONATE 2,000 MG in SODIUM CHLORIDE 0.9% 100ML 100 ML IV ONE ×3 (07:30→16:15)
[2019-10-25] MEDS: INSULIN ASPART 300 UNIT/3 ML PEN SUBQ SCH ×4 (08:36→20:43)
[2019-10-25] MEDS: SERTRALINE 50 MG TABLET PO SCH (08:49)
[2019-10-25] MEDS: MULTIVITAMIN W/MINERALS TABLET PO SCH (08:49)
[2019-10-25] MEDS: SACCHAROMYCES BOULARDII 250 MG CAPSULE PO SCH ×2 (08:49→16:59)
[2019-10-25] MEDS: CHOLECALCIFEROL 1,000 UNIT TABLET PO SCH (08:49)
[2019-10-25] MEDS: CALCIUM CARB (OYSTER SHELL) 500 MG TABLET PO SCH (08:49)
[2019-10-25] MEDS: ASPIRIN EC 81 MG TABLET PO SCH (08:50)
[2019-10-25] MEDS: ENOXAPARIN 40 MG/0.4 ML SYRINGE SUBQ SCH (08:50)
[2019-10-25] MEDS: polyethylene glycoL 3350 17 GM PACKET PO SCH (08:50)
[2019-10-25] MEDS: POTASSIUM CHLORIDE 20 MEQ TABLET PO SCH ×2 (08:54→20:43)
[2019-10-25] MEDS: SODIUM CHLORIDE FLUSH 0.9% 10 ML SYRINGE IVP PRN (11:25)
[2019-10-25 14:22] LABS: MAGNESIUM 1.7 mg/dL (1.7-2.8); PHOSPHORUS 5.2 mg/dL (2.5-4.6)
--- NOTE | 2019-10-25 15:17 | PROVIDER PROGRESS NOTE ---
Subjective - Prog Note Date Prog Note Date: 10/25/19 Prog Note Time: 15:15 - Subjective Pt reports feeling: No change Subjective: she is exhauted and tearful about it. Can't believe how much effort is required just to transfer to standing for her to go to bathroom. Denies cp. Had mild MARIANO. Main complaint is paresthesias of lips/face and fingers. She had a 6 beat run of V tach. Calcium had already been supplemented again today. Current Medications - Current Medications Current Medications: Active Medications Acetaminophen (Tylenol) 650 mg PO Q6HR PRN PRN Reason: Pain 1 to 4 Last Admin: 10/21/19 20:56 Dose: 650 mg Aspirin (Ecotrin) 81 mg PO DAILY [facility] Last Admin: 10/25/19 08:50 Dose: 81 mg Calcium Carbonate/Glycine (Oysco-500) 1,000 mg PO DAILY [facility] Last Admin: 10/25/19 08:49 Dose: 1,000 mg Cholecalciferol (Vitamin D3) 1,000 unit PO DAILY [facility] Last Admin: 10/25/19 08:49 Dose: 1,000 unit Enoxaparin Sodium (Lovenox) 40 mg SUBQ DAILY [facility] Last Admin: 10/25/19 08:50 Dose: 40 mg Guaifenesin (Robitussin Dm) 10 ml PO Q6HR PRN PRN Reason: Cough Last Admin: 10/23/19 09:00 Dose: 10 ml Ampicillin Sodium/Sulbactam (Sodium 3 gm/ Sodium Chloride) 100 mls @ 200 mls/hr IV Q6HR [facility] Last Infusion: 10/25/19 12:02 Dose: Infused Insulin Aspart (Novolog) 1 - 5 unit SUBQ 0800,1200,1700,2100 [facility]; Protocol Last Admin: 10/25/19 11:33 Dose: Not Given Levothyroxine Sodium (Synthroid) 125 mcg PO QDAC [facility] Last Admin: 10/25/19 05:57 Dose: 125 mcg Multivitamins/Minerals (Theragran M) 1 tab PO DAILYWM [facility] Last Admin: 10/25/19 08:49 Dose: 1 tab Ondansetron HCl (Zofran Inj) 4 mg IVP Q6HR PRN PRN Reason: Nausea / Vomiting Polyethylene Glycol (Miralax) 17 gm PO DAILY [facility] Last Admin: 10/25/19 08:50 Dose: Not Given Potassium Chloride (K-Dur) 20 meq PO BID [facility] Last Admin: 10/25/19 08:54 Dose: 20 meq Saccharomyces Boulardii (Florastor) 250 mg PO BIDWM [facility] Last Admin: 10/25/19 08:49 Dose: 250 mg Sertraline HCl (Zoloft) 100 mg PO DAILY [facility] Last Admin: 10/25/19 08:49 Dose: 100 mg Sodium Chloride (Normal Saline Flush 0.9%) 10 ml IVP PRN PRN PRN Reason: NEEDED PER PROVIDER ORDERS Last Admin: 10/25/19 11:25 Dose: 10 ml Sodium Chloride (Normal Saline Flush 0.9%) 10 ml IVP 0100,0900,1700 [facility] Last Admin: 10/25/19 08:50 Dose: 10 ml Aspirin [Aspir 81] 81 mg PO DAILY 11/28/14 Levothyroxine [Synthroid] 125 mcg PO DAILY 11/28/14 Metformin HCl 500 mg PO DAILY 11/28/14 Sertraline HCl [Zoloft] 100 mg PO DAILY 11/28/14 hydroCHLOROthiazide [Hydrochlorothiazide] 1 tab PO DAILY 09/30/17 Calcium/D3/Zinc/Copper/Sunshine [Citracal-D3 Maximum Plus Caplt] 2 each PO BID 10/21/19 Multivit with Calcium,Iron,Min [One Daily Women's] 1 each PO DAILY 10/21/19 Objective - Vital Signs/Intake & Output Reviewed Vital Signs: Yes Vital Signs: Vital Signs x48h Temp Pulse Resp BP Pulse Ox 10/25/19 11:32 36.9 C 61 17 136/87 H 94 10/25/19 09:00 37.0 C 65 16 159/81 H 96 Intake & Output: Intake & Output 10/22/19 10/23/19 10/24/19 10/25/19 23:59 23:59 23:59 23:59 Intake Total 1600 1870 1160 1020 Output Total 800 325 425 275 Balance 800 1545 735 745 - Objective General Appearance: positive: No acute distress, Lethargic (appears near tears and anhedonic) Eyes Bilateral: positive: PERRL ENT: positive: Pharynx nml, Other (upper teeth gone) Neck: positive: No JVD Respiratory: positive: No respiratory distress. negative: Wheezes, Rales, Rhonchi Cardiovascular: positive: Regular rate & rhythm. negative: No murmur, Gallop/S4 Abdomen: positive: Non-tender, No organomegaly, Nml bowel sounds, No distention Skin: positive: Warm, Dry Extremities: positive: Full ROM, No pedal edema Neurologic/Psychiatric: positive: Oriented x3, CN's nml (2-12). negative: Motor nml (hands and fingers are cramping.), Weakness - Lab Results Fish Bones: 10/25/19 05:53 10/25/19 05:53 Other Labs: Lab Results x24hrs 10/25/19 10/25/19 10/25/19 Range/Units 14:03 14:03 05:53 WBC (4.8-10.8) x10^3/uL RBC (4.20-5.40) 10^6/uL Hgb (12.0-16.0) g/dL Hct (37.0-47.0) % MCV (81.0-99.0) fL MCH (27.0-31.0) pg MCHC (32.0-36.0) g/dL RDW (12.0-15.0) % Plt Count (130-450) 10^3/uL MPV (7.9-10.8) fL Neut # (Auto) (1.5-6.6) 10^3/uL Lymph # (Auto) (1.5-3.5) 10^3/uL [place] # (Auto) (0.0-1.0) 10^3/uL Eos # (Auto) (0.0-0.7) 10^3/uL Baso # (Auto) (0.0-0.1) 10^3/uL Absolute Nucleated RBC x10^3/uL Nucleated RBC % /100WBC Sodium 134 L (135-145) mmol/L Potassium 3.6 (3.5-5.0) mmol/L Chloride 101 (101-111) mmol/L Carbon Dioxide 24 (21-32) mmol/L Anion Gap 9.0 (6-13) BUN 12 (6-20) mg/dL Creatinine 0.8 (0.4-1.0) mg/dL Estimated GFR (MDRD) 72 L (>89) Glucose 105 H (70-100) mg/dL Calcium 7.0 L 5.9 L* (8.5-10.3) mg/dL Phosphorus 5.2 H (2.5-4.6) mg/dL Magnesium 1.7 (1.7-2.8) mg/dL PTH Intact 9 L (12-88) pg/mL 05// Range/Units 05:53 WBC 8.6 (4.8-10.8) x10^3/uL RBC 3.41 L (4.20-5.40) 10^6/uL Hgb 9.7 L (12.0-16.0) g/dL Hct 30.5 L (37.0-47.0) % MCV 89.4 (81.0-99.0) fL MCH 28.4 (27.0-31.0) pg MCHC 31.8 L (32.0-36.0) g/dL RDW 13.5 (12.0-15.0) % Plt Count 399 (130-450) 10^3/uL MPV 9.6 (7.9-10.8) fL Neut # (Auto) 4.5 (1.5-6.6) 10^3/uL Lymph # (Auto) 2.6 (1.5-3.5) 10^3/uL [place] # (Auto) 0.9 (0.0-1.0) 10^3/uL Eos # (Auto) 0.3 (0.0-0.7) 10^3/uL Baso # (Auto) 0.1 (0.0-0.1) 10^3/uL Absolute Nucleated RBC 0.00 x10^3/uL Nucleated RBC % 0.0 /100WBC Sodium (135-145) mmol/L Potassium (3.5-5.0) mmol/L Chloride (101-111) mmol/L Carbon Dioxide (21-32) mmol/L Anion Gap (6-13) BUN (6-20) mg/dL Creatinine (0.4-1.0) mg/dL Estimated GFR (MDRD) (>89) Glucose (70-100) mg/dL Calcium (8.5-10.3) mg/dL Phosphorus (2.5-4.6) mg/dL Magnesium (1.7-2.8) mg/dL PTH Intact (12-88) pg/mL ABX Reporting Has patient been on IV antibiotics over the past 48 hours?: Yes Assessment/Plan - Problem List (1) Hypocalcemia Impression: She has chronic hypocalcemia since being here. This is in spite of adequate IV supplementation. She does have a history of hypothyroidism. But she is adamant that her parathyroid glands were not removed. I do not feel that she has symp toms dating to childhood so as such I do not suspect autoimmune disorder. And again she is much older and I do not suspect genetic disorder from childhood. Plan: Check calcium, magnesium, phosphorus and PTH level (2) CAP (community acquired pneumonia) Impression: With bacteremia. She is 94% on room air, white cell count started at 13.5 thousand and is 8.6 thousand today. Last fever was October 20 at 38.8 and she has been afebrile since then. The identification of the bacteremia was diphtheria, which may be a contaminant bc it was found on day #3 in 1/2 sets of cultures, However, it is found in oral suzan therefore it may have caused the pneumonia which may have caused a bacteremia. Her IV antibiotics were changed based on the identification. We will plan a 2-week course of antibiotics, plan was transition to orals starting today and possible discharge home tomorrow but I will call ID at to verify I need to treat the bacteremia. (3) Diabetes mellitus Assessment/Plan: Her A1c was 6.0 at admission, indicating excellent glucose control. Today's glucose is 91 and 100. No change in management and will continue with carb controlled diet and sliding scale insulin while here. (4) Hypokalemia Assessment/Plan: She has been hypokalemic every day here, despite replacement. On increased daily potassium 20 mEq to bid and today normal. Follow BMP day (5) Anemia Qualifiers: Anemia type: iron deficiency Assessment/Plan: B12 and folate levels are fine, TBG and iron stores are low. Started oral iron replacement. 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 Work up possible primary hypoparathyroidism as in #1. (8) Depression Assessment/Plan: This may or may not be a symptom of hypoparathyroidism for her. She has an SSRI and that will be continued.
[2019-10-25] MEDS ORDERED: SODIUM CHLORIDE 0.9% 100ML 100 ML IV ONE (16:01)
[2019-10-25] MEDS ORDERED: MAGNESIUM SULFATE 2 GRAM 2 GM/50 ML BAG IV ONE (16:15)
[2019-10-25] MEDS ORDERED: calcitrioL 0.25 MCG CAPSULE PO SCH (17:00)
--- NOTE | 2019-10-25 19:11 | XRAY Report ---
Reason: lll infiltrate fu Procedure Date: 10/25/2019 Accession Number: [id number] / [id number] Procedure: XR - Chest 1 View X-Ray CPT Code: 96382 Final Report FULL RESULT: EXAM: CHEST RADIOGRAPHY EXAM DATE: 10/25/2019 04:03 PM. CLINICAL HISTORY: Lll infiltrate fu. COMPARISON: CHEST 1 VIEW 10/21/2019 3:28 AM. TECHNIQUE: 1 view. FINDINGS: Lungs/Pleura: Left basilar opacity obscuring hemidiaphragm. Mediastinum: Within exam limitations, the cardiomediastinal contour is normal. Other: None. IMPRESSION: Worsening left pleural effusion with adjacent atelectasis and airspace disease. Findings are concerning for pneumonia. [facility]
[2019-10-26 05:24] LABS: BASOPHILS # (AUTO) 0.1 10^3/uL (0.0-0.1); BASOPHILS % (AUTO) 0.7 %; EOSINOPHILS # (AUTO) 0.3 10^3/uL (0.0-0.7); HGB - HEMOGLOBIN 9.9 g/dL (12.0-16.0); LYMPHOCYTES # (AUTO) 3.1 10^3/uL (1.5-3.5); LYMPHOCYTES % (AUTO) 27.3 %; MEAN CORPUSCULAR HEMOGLOBIN 27.3 pg (27.0-31.0); MEAN CORPUSCULAR HGB CONC 30.9 g/dL (32.0-36.0); MEAN CORPUSCULAR VOLUME 88.2 fL (81.0-99.0); MEAN PLATELET VOLUME 9.6 fL (7.9-10.8); MONOCYTES # (AUTO) 0.9 10^3/uL (0.0-1.0); NEUTROPHILS # (AUTO) 6.6 10^3/uL (1.5-6.6); NEUTROPHILS % (AUTO) 57.3 %; PLT - PLATELET COUNT 467 10^3/uL (130-450); RED BLOOD COUNT 3.63 10^6/uL (4.20-5.40); RED CELL DISTRIBUTION WIDTH 13.7 % (12.0-15.0); WHITE BLOOD COUNT 11.5 x10^3/uL (4.8-10.8)
[2019-10-26 05:36] LABS: CALCIUM 7.2 mg/dL (8.5-10.3); CREATININE 0.8 mg/dL (0.4-1.0)
[2019-10-26] MEDS: LEVOTHYROXINE 125 MCG TABLET PO SCH (06:10)
[2019-10-26] MEDS: AMPICILLIN/SULBACTAM 3 GM in SODIUM CHLORIDE 0.9% MINIBAG 100 ML IV SCH (06:10)
[2019-10-26] MEDS ORDERED: CALCIUM GLUCONATE 1,000 MG in SODIUM CHLORIDE 0.9% 50 ML IV SCH (08:15)
[2019-10-26] MEDS: SODIUM CHLORIDE FLUSH 0.9% 10 ML SYRINGE IVP SCH ×2 (08:30→16:49)
[2019-10-26] MEDS: INSULIN ASPART 300 UNIT/3 ML PEN SUBQ SCH ×4 (08:31→20:39)
[2019-10-26] MEDS: SACCHAROMYCES BOULARDII 250 MG CAPSULE PO SCH ×2 (08:42→16:49)
[2019-10-26] MEDS: SERTRALINE 50 MG TABLET PO SCH (08:42)
[2019-10-26] MEDS: CHOLECALCIFEROL 1,000 UNIT TABLET PO SCH (08:42)
[2019-10-26] MEDS: POTASSIUM CHLORIDE 20 MEQ TABLET PO SCH ×2 (08:42→20:38)
[2019-10-26] MEDS: ASPIRIN EC 81 MG TABLET PO SCH (08:42)
[2019-10-26] MEDS: CALCIUM CARB (OYSTER SHELL) 500 MG TABLET PO SCH ×2 (08:42→20:38)
[2019-10-26] MEDS: MULTIVITAMIN W/MINERALS TABLET PO SCH (08:42)
[2019-10-26] MEDS: calcitrioL 0.25 MCG CAPSULE PO SCH ×2 (08:43→16:49)
[2019-10-26] MEDS: ENOXAPARIN 40 MG/0.4 ML SYRINGE SUBQ SCH (08:44)
[2019-10-26] MEDS: polyethylene glycoL 3350 17 GM PACKET PO SCH (08:49)
[2019-10-26] MEDS ORDERED: VANCOMYCIN INJ 1 GM in SODIUM CHLORIDE 0.9% 250 ML IV SCH (09:00)
[2019-10-26] MEDS: CEFEPIME 2 GM in SODIUM CHLORIDE 0.9% MINIBAG 100 ML IV SCH ×2 (10:05→20:38)
[2019-10-26] MEDS: SODIUM CHLORIDE FLUSH 0.9% 10 ML SYRINGE IVP PRN (10:08)
[2019-10-26] MEDS: hydroCHLOROthiazide 25 MG TABLET PO SCH (10:10)
--- NOTE | 2019-10-26 10:11 | PROVIDER PROGRESS NOTE ---
Subjective - Prog Note Date Prog Note Date: 10/26/19 - Subjective Pt reports feeling: Improved Subjective: pt report she feel better, her numbness on her lip is resolved. she report she ate almost all her breakfast. clinically she is improving. she denies fever, chill, chest pain. Current Medications - Current Medications Current Medications: Active Medications Acetaminophen (Tylenol) 650 mg PO Q6HR PRN PRN Reason: Pain 1 to 4 Last Admin: 10/21/19 20:56 Dose: 650 mg Aspirin (Ecotrin) 81 mg PO DAILY [facility] Last Admin: 10/26/19 08:42 Dose: 81 mg Calcitriol (Rocaltrol) 0.5 mcg PO BIDWM [facility] Last Admin: 10/26/19 08:43 Dose: 0.5 mcg Calcium Carbonate/Glycine (Oysco-500) 1,000 mg PO BID [facility] Last Admin: 10/26/19 08:42 Dose: 1,000 mg Cholecalciferol (Vitamin D3) 1,000 unit PO DAILY [facility] Last Admin: 10/26/19 08:42 Dose: 1,000 unit Enoxaparin Sodium (Lovenox) 40 mg SUBQ DAILY [facility] Last Admin: 10/26/19 08:44 Dose: 40 mg Guaifenesin (Robitussin Dm) 10 ml PO Q6HR PRN PRN Reason: Cough Last Admin: 10/23/19 09:00 Dose: 10 ml Hydrochlorothiazide (Hydrodiuril) 25 mg PO DAILY [facility] Last Admin: 10/26/19 10:10 Dose: 25 mg Cefepime HCl 2 gm/ Sodium (Chloride) 100 mls @ 200 mls/hr IV BID [facility] Stop: 11/01/19 21:29 Last Admin: 10/26/19 10:05 Dose: 200 mls/hr Insulin Aspart (Novolog) 1 - 5 unit SUBQ 0800,1200,1700,2100 [facility]; Protocol Last Admin: 10/26/19 08:31 Dose: Not Given Levothyroxine Sodium (Synthroid) 125 mcg PO QDAC [facility] Last Admin: 10/26/19 06:10 Dose: 125 mcg Multivitamins/Minerals (Theragran M) 1 tab PO DAILYWM [facility] Last Admin: 10/26/19 08:42 Dose: 1 tab Ondansetron HCl (Zofran Inj) 4 mg IVP Q6HR PRN PRN Reason: Nausea / Vomiting Polyethylene Glycol (Miralax) 17 gm PO DAILY [facility] Last Admin: 10/26/19 08:49 Dose: Not Given Potassium Chloride (K-Dur) 20 meq PO BID [facility] Last Admin: 10/26/19 08:42 Dose: 20 meq Saccharomyces Boulardii (Florastor) 250 mg PO BIDWM [facility] Last Admin: 10/26/19 08:42 Dose: 250 mg Sertraline HCl (Zoloft) 100 mg PO DAILY [facility] Last Admin: 10/26/19 08:42 Dose: 100 mg Sodium Chloride (Normal Saline Flush 0.9%) 10 ml IVP PRN PRN PRN Reason: NEEDED PER PROVIDER ORDERS Last Admin: 10/26/19 10:08 Dose: 10 ml Sodium Chloride (Normal Saline Flush 0.9%) 10 ml IVP 0100,0900,1700 [facility] Last Admin: 10/26/19 08:30 Dose: 10 ml Aspirin [Aspir 81] 81 mg PO DAILY 11/28/14 Metformin HCl 500 mg PO DAILY 11/28/14 Sertraline HCl [Zoloft] 100 mg PO DAILY 11/28/14 hydroCHLOROthiazide [Hydrochlorothiazide] 1 tab PO DAILY 09/30/17 Calcium/D3/Zinc/Copper/Sunshine [Citracal-D3 Maximum Plus Caplt] 2 each PO BID 10/21/19 Multivit with Calcium,Iron,Min [One Daily Women's] 1 each PO DAILY 10/21/19 Levothyroxine [Synthroid] 125 mcg PO QDAC 10/25/19 Objective - Vital Signs/Intake & Output Vital Signs: Vital Signs x48h Temp Pulse Resp BP Pulse Ox 10/26/19 08:26 36.9 C 70 18 162/88 H 98 10/26/19 05:00 37.1 C 61 16 148/74 H 95 Intake & Output: Intake & Output 10/23/19 10/24/19 10/25/19 10/26/19 23:59 23:59 23:59 23:59 Intake Total 1870 1160 1490 500 Output Total 325 425 825 Balance 1545 735 665 500 - Objective General Appearance: positive: No acute distress, Alert. negative: Lethargic Eyes Bilateral: positive: Normal inspection, PERRL, No lid inflammation ENT: positive: ENT inspection nml, Pharynx nml, No signs of dehydration. negative: Dry mucous membranes Neck: positive: Nml inspection, No JVD, Trachea midline, Lymphadenopathy (R). negative: Thyromegaly, Stiff neck, Tracheal deviation Respiratory: positive: Chest non-tender, No respiratory distress, Rhonchi. negative: Wheezes, Rales Cardiovascular: positive: Regular rate & rhythm, No murmur, No gallop. negative: Irregularly irregular, Tachycardia, Bradycardia, Systolic murmur Peripheral Pulses: 2+ Radial (R), 2+ Radial (L) Abdomen: positive: Non-tender, No organomegaly, Nml bowel sounds, No distention. negative: Tenderness, Guarding, Rebound Back: positive: Nml inspection Skin: positive: Color nml, No rash, Warm, Dry. negative: Cyanosis, Diaphoresis, Pallor, Skin rash Extremities: positive: Non-tender, Nml appearance. negative: Calf tenderness, Filiberto's sign/cords Neurologic/Psychiatric: positive: Oriented x3, Sensation nml, Mood/affect nml. negative: Weakness, Sensory loss, Facial droop, Slurred/abnml speech, Depressed mood/affect - Lab Results Fish Bones: 10/26/19 05:05 10/26/19 05:05 Other Labs: Lab Results x24hrs 10/26/19 10/26/19 10/25/19 Range/Units 05:05 05:05 14:03 WBC 11.5 H (4.8-10.8) x10^3/uL RBC 3.63 L (4.20-5.40) 10^6/uL Hgb 9.9 L (12.0-16.0) g/dL Hct 32.0 L (37.0-47.0) % MCV 88.2 (81.0-99.0) fL MCH 27.3 (27.0-31.0) pg MCHC 30.9 L (32.0-36.0) g/dL RDW 13.7 (12.0-15.0) % Plt Count 467 H (130-450) 10^3/uL MPV 9.6 (7.9-10.8) fL Neut # (Auto) 6.6 (1.5-6.6) 10^3/uL Lymph # (Auto) 3.1 (1.5-3.5) 10^3/uL [place] # (Auto) 0.9 (0.0-1.0) 10^3/uL Eos # (Auto) 0.3 (0.0-0.7) 10^3/uL Baso # (Auto) 0.1 (0.0-0.1) 10^3/uL Absolute Nucleated RBC 0.00 x10^3/uL Nucleated RBC % 0.0 /100WBC Sodium 141 (135-145) mmol/L Potassium 4.0 (3.5-5.0) mmol/L Chloride 104 (101-111) mmol/L Carbon Dioxide 25 (21-32) mmol/L Anion Gap 12.0 (6-13) BUN 10 (6-20) mg/dL Creatinine 0.8 (0.4-1.0) mg/dL Estimated GFR (MDRD) 72 L (>89) Glucose 106 H (70-100) mg/dL Calcium 7.2 L (8.5-10.3) mg/dL Phosphorus (2.5-4.6) mg/dL Magnesium (1.7-2.8) mg/dL PTH Intact 9 L (12-88) pg/mL 05//20 Range/Units 14:03 WBC (4.8-10.8) x10^3/uL RBC (4.20-5.40) 10^6/uL Hgb (12.0-16.0) g/dL Hct (37.0-47.0) % MCV (81.0-99.0) fL MCH (27.0-31.0) pg MCHC (32.0-36.0) g/dL RDW (12.0-15.0) % Plt Count (130-450) 10^3/uL MPV (7.9-10.8) fL Neut # (Auto) (1.5-6.6) 10^3/uL Lymph # (Auto) (1.5-3.5) 10^3/uL [place] # (Auto) (0.0-1.0) 10^3/uL Eos # (Auto) (0.0-0.7) 10^3/uL Baso # (Auto) (0.0-0.1) 10^3/uL Absolute Nucleated RBC x10^3/uL Nucleated RBC % /100WBC Sodium (135-145) mmol/L Potassium (3.5-5.0) mmol/L Chloride (101-111) mmol/L Carbon Dioxide (21-32) mmol/L Anion Gap (6-13) BUN (6-20) mg/dL Creatinine (0.4-1.0) mg/dL Estimated GFR (MDRD) (>89) Glucose (70-100) mg/dL Calcium 7.0 L (8.5-10.3) mg/dL Phosphorus 5.2 H (2.5-4.6) mg/dL Magnesium 1.7 (1.7-2.8) mg/dL PTH Intact (12-88) pg/mL ABX Reporting Has patient been on IV antibiotics over the past 48 hours?: Yes Assessment/Plan - Problem List (1) Hypocalcemia Impression: Improved, calcium is 7.2 today.Patient PTH level is low more than her normal, patient phosphorus is higher than normal and calcium level is low, pt is likely primary hypoparathyroidism. Follow update recommendation, added 0.5 mcg active vitamin bid, calcium carbonate 1 g twice daily, also continue vitamin D 1000 units daily,And intravenous calcium gluconate 1 g today.Daily lab monitor. pt's hypoparathyroidism is likely secondary to her thyroid resection. Also check ECHO, since chronic hypoparathyroidism has affective effect on cardiac function. Patient had pulmonary edema special on left side, patient show significant weakness in the hospital (2) CAP (community acquired pneumonia) Impression: Patient has no active respiratory distress now, but the patient WBC elevated to 11.5, patient chest x-ray show worse, discussed with pharmacy for the antibiotics, we will change to the cefepime for HCAP. (3) Diabetes mellitus Assessment/Plan: good control. Her A1c was 6.0 at admission, indicating excellent glucose control. Today's glucose is 91 and 100. No change in management and will continue with carb controlled diet and sliding scale insulin while here. (4) Hypokalemia Assessment/Plan: resolved. (5) Anemia improved slightly, B12 and folate levels are fine, TBG and iron stores are low. continue oral iron replacement. (6) Hypothyroidism from thyroidectomy Assessment/Plan: stable, continue home meds and dosage of synthyroid. Her TSH is 0.44, adequate Continue with her home thyroid dose for replacement. Work up possible primary hypoparathyroidism as in #1. (8) Depression Assessment/Plan: This may or may not be a symptom of hypoparathyroidism for her. She has an SSRI and that will be continued.
--- NOTE | 2019-10-26 12:44 | CT Report ---
Reason: persisting left pleural effusion Procedure Date: 10/26/2019 Accession Number: [id number] / [id number] Procedure: CT - CHEST WO CPT Code: Final Report FULL RESULT: EXAM: CT CHEST EXAM DATE: 10/26/2019 10:12 AM. CLINICAL HISTORY: Persisting left pleural effusion. COMPARISONS: 03/05/2011 9:06 PM CHEST 1 VIEW 10/25/2019 3:43 PM. TECHNIQUE: Routine helical CT imaging was performed through the chest. IV contrast: None. Reconstructions: Coronal and sagittal. In accordance with CT protocol optimization, one or more of the following dose reduction techniques were utilized for this exam: automated exposure control, adjustment of mA and/or KV based on patient size, or use of iterative reconstructive technique. FINDINGS: Lungs/Pleura: Left lower lobe infiltrate with areas of consolidation in anterior, lateral, posterior segment. Calcified granuloma versus calcified material within alveoli. 2.9 cm left pleural effusion Biapical scarring. Linear scarring in right middle lobe, right lower lobe. Mediastinum: Normal. No adenopathy or masses. The heart and great vessels are normal. Bones: Unremarkable. Visualized Abdomen: Small hiatal hernia. Lower density area near falciform ligament liver normal variant Other: None. IMPRESSION: Left lower lobe infiltrate with areas of consolidation in anterior, lateral and posterior segments with 2.9 cm left pleural effusion. Recommend follow-up to clear [facility]
[2019-10-26] MEDS ORDERED: BACITRACIN ZINC OINT 1 PACKET TOP PRN (22:23)
[2019-10-27] MEDS: SODIUM CHLORIDE FLUSH 0.9% 10 ML SYRINGE IVP SCH ×3 (02:01→17:04)
[2019-10-27 05:26] LABS: BASOPHILS # (AUTO) 0.1 10^3/uL (0.0-0.1); BASOPHILS % (AUTO) 0.7 %; EOSINOPHILS # (AUTO) 0.3 10^3/uL (0.0-0.7); EOSINOPHILS % (AUTO) 3.2 %; HGB - HEMOGLOBIN 11.5 g/dL (12.0-16.0); LYMPHOCYTES # (AUTO) 2.9 10^3/uL (1.5-3.5); MEAN CORPUSCULAR HEMOGLOBIN 28.1 pg (27.0-31.0); MEAN CORPUSCULAR HGB CONC 31.3 g/dL (32.0-36.0); MEAN CORPUSCULAR VOLUME 89.7 fL (81.0-99.0); MEAN PLATELET VOLUME 9.5 fL (7.9-10.8); MONOCYTES # (AUTO) 0.9 10^3/uL (0.0-1.0); MONOCYTES % (AUTO) 8.3 %; NEUTROPHILS # (AUTO) 5.7 10^3/uL (1.5-6.6); NEUTROPHILS % (AUTO) 55.2 %; PLT - PLATELET COUNT 582 10^3/uL (130-450); RED BLOOD COUNT 4.09 10^6/uL (4.20-5.40); RED CELL DISTRIBUTION WIDTH 13.8 % (12.0-15.0); WHITE BLOOD COUNT 10.3 x10^3/uL (4.8-10.8)
[2019-10-27 05:33] LABS: ALBUMIN 3.4 g/dL (3.2-5.5); ALBUMIN/GLOBULIN RATIO 0.7 (1.0-2.2); BILIRUBIN,TOTAL 0.4 mg/dL (0.2-1.0); CALCIUM 8.6 mg/dL (8.5-10.3); CREATININE 0.9 mg/dL (0.4-1.0); TOTAL PROTEIN 8.4 g/dL (6.7-8.2)
[2019-10-27] MEDS: LEVOTHYROXINE 125 MCG TABLET PO SCH (06:39)
[2019-10-27] MEDS: INSULIN ASPART 300 UNIT/3 ML PEN SUBQ SCH ×4 (07:51→20:53)
[2019-10-27] MEDS: ACETAMINOPHEN 325 MG TABLET PO PRN ×2 (08:37→15:48)
[2019-10-27] MEDS: CALCIUM CARB (OYSTER SHELL) 500 MG TABLET PO SCH (08:38)
[2019-10-27] MEDS: POTASSIUM CHLORIDE 20 MEQ TABLET PO SCH ×2 (08:38→20:00)
[2019-10-27] MEDS: SACCHAROMYCES BOULARDII 250 MG CAPSULE PO SCH ×2 (08:39→17:02)
[2019-10-27] MEDS: MULTIVITAMIN W/MINERALS TABLET PO SCH (08:39)
[2019-10-27] MEDS: calcitrioL 0.25 MCG CAPSULE PO SCH ×2 (08:39→17:04)
[2019-10-27] MEDS: ASPIRIN EC 81 MG TABLET PO SCH (08:39)
[2019-10-27] MEDS: ENOXAPARIN 40 MG/0.4 ML SYRINGE SUBQ SCH (08:39)
[2019-10-27] MEDS: CHOLECALCIFEROL 1,000 UNIT TABLET PO SCH (08:39)
[2019-10-27] MEDS: hydroCHLOROthiazide 25 MG TABLET PO SCH (08:39)
[2019-10-27] MEDS: SERTRALINE 50 MG TABLET PO SCH (08:39)
[2019-10-27] MEDS: polyethylene glycoL 3350 17 GM PACKET PO SCH (08:40)
[2019-10-27] MEDS: CEFEPIME 2 GM in SODIUM CHLORIDE 0.9% MINIBAG 100 ML IV SCH ×2 (08:48→20:00)
[2019-10-27] MEDS ORDERED: BACITRACIN ZINC OINT 1 PACKET TOP PRN (09:00)
--- NOTE | 2019-10-27 10:34 | PROVIDER PROGRESS NOTE ---
Assessment/Plan - Problem List (1) Hypoparathyroidism Assessment/Plan: 10/26 Patient's calcium is normal 8.6 now, great improved. pt denies any more numbness of her lips and her strength is better. PT/OT evaluation and treatment to pt. PT/OT released pt. PTH level is low more than her normal, patient anahy sphorus is higher than normal and calcium level is low, this put diagnosis of hypoparathyroidism. We will adjust pt's medications today, prevention of hypocalcemia and hypercalcemia, advise pt followup her PCP to continue monitor calcium level and adjust her meds as needed. 10/25 Improved, calcium is 7.2 today.Patient PTH level is low more than her normal, patient phosphorus is higher than normal and calcium level is low, pt is likely primary hypoparathyroidism. Follow update recommendation, added 0.5 mcg active vitamin bid, calcium carbonate 1 g twice daily, also continue vitamin D 1000 units daily,And intravenous calcium gluconate 1 g today.Daily lab monitor. pt's hypoparathyroidism is likely secondary to her thyroid resection. Also check ECHO, since chronic hypoparathyroidism has affective effect on cardiac function. Patient had pulmonary edema special on left side, patient show significant weakness in the hospital (2) CAP (community acquired pneumonia) Impression: 10/26 Patient WBC is down to the 10.5 today, patient feels better, patient an tibiotics was changed on yesterday, explained patient CAT scan of the chest and echo of the heart to the patient, patient understands result, and answer the patient questions continue IV of antibiotics today, will switch PO antibiotics and plan d/c pt on tomorrow. Patient has no active respiratory distress now, but the patient WBC elevated to 11.5, patient chest x-ray show worse, discussed with pharmacy for the antibiotics, we will change to the cefepime for HCAP. (3) Diabetes mellitus Assessment/Plan: good control. Her A1c was 6.0 at admission, indicating excellent glucose control. Today's glucose is 91 and 100. No change in management and will continue with carb controlled diet and sliding scale insulin while here. (4) Hypokalemia Assessment/Plan: resolved. (5) Anemia 10/26 improved to HGB 11.5, B12 and folate levels are fine, TBG and iron stores are low. (6) Hypothyroidism from thyroidectomy Assessment/Plan: stable, continue home meds and dosage of synthyroid. Her TSH is 0.44, adequate Continue with her home thyroid dose for replacement. Work up possible primary hypoparathyroidism as in #1. (8) Depression Assessment/Plan: This may or may not be a symptom of hypoparathyroidism for her. She has an SSRI and that will be continued. - Current Meds Current Meds: Current Medications Generic Name Dose Route Start Last Admin Trade Name Freq PRN Reason Stop Dose Admin Acetaminophen 650 mg 10/21/19 05:53 10/27/19 08:37 Tylenol PO 650 mg Q6HR PRN Administration Pain 1 to 4 Aspirin 81 mg 10/21/19 09:00 10/27/19 08:39 Ecotrin PO 81 mg DAILY [facility] Administration Calcitriol 0.25 mcg 10/27/19 08:00 10/27/19 08:39 Rocaltrol PO 0.25 mcg BIDWM [facility] Administration Calcium Carbonate/Glycine 1,000 mg 10/27/19 09:00 10/27/19 08:38 Oysco-500 PO 1,000 mg DAILY [facility] Administration Cholecalciferol 1,000 unit 10/21/19 09:00 10/27/19 08:39 Vitamin D3 PO 1,000 unit DAILY [facility] Administration Enoxaparin Sodium 40 mg 10/21/19 09:00 10/27/19 08:39 Lovenox SUBQ 40 mg DAILY [facility] Administration Guaifenesin 10 ml 10/21/19 20:37 10/23/19 09:00 Robitussin Dm PO 10 ml Q6HR PRN Administration Cough Hydrochlorothiazide 25 mg 10/26/19 10:00 10/27/19 08:39 Hydrodiuril PO 25 mg DAILY [facility] Administration Cefepime HCl 2 gm/ Sodium 100 mls @ 200 mls/hr 10/26/19 10:00 10/27/19 09:26 Chloride IV 11/01/19 21:29 Infused BID [facility] Infusion Insulin Aspart 1 - 5 unit 10/21/19 12:00 10/27/19 07:51 Novolog SUBQ Not Given 0800,1200,1700,2100 [facility] Protocol Levothyroxine Sodium 125 mcg 10/21/19 07:00 10/27/19 06:39 Synthroid PO 125 mcg QDAC [facility] Administration Multivitamins/Minerals 1 tab 10/21/19 08:00 10/27/19 08:39 Theragran M PO 1 tab DAILYWM [facility] Administration Polyethylene Glycol 17 gm 10/22/19 09:00 10/27/19 08:40 Miralax PO Not Given DAILY [facility] Potassium Chloride 20 meq 10/24/19 09:00 10/27/19 08:38 K-Dur PO 20 meq BID [facility] Administration Saccharomyces Boulardii 250 mg 10/23/19 13:32 10/27/19 08:39 Florastor PO 250 mg BIDWM [facility] Administration Sertraline HCl 100 mg 10/21/19 09:00 10/27/19 08:39 Zoloft PO 100 mg DAILY [facility] Administration Sodium Chloride 10 ml 10/21/19 05:53 10/26/19 10:08 Normal Saline Flush 0.9% IVP 10 ml PRN PRN Administration NEEDED PER PROVIDER ORDERS Sodium Chloride 10 ml 10/21/19 09:00 10/27/19 08:40 Normal Saline Flush 0.9% IVP 10 ml 0100,0900,1700 [facility] Administration - Lab Result Fish Bone Diagrams: 10/27/19 05:10 10/27/19 05:10 - Additional Planning My Orders: My Active Orders 10/26/19 10:00 Cefepime 2 gm Sodium Chloride 0.9% Minibag [Normal Saline 0.9% Minibag] 100 ml IV BID hydroCHLOROthiazide [Hydrodiuril] 25 mg PO DAILY 10/26/19 22:23 Bacitracin Zinc Oint [Bacitracin] 1 packet TOP PRN PRN 10/26/19 Dinner Regular Diet [DIET] 10/27/19 08:00 calcitrioL [Rocaltrol] 0.25 mcg PO BIDWM 10/27/19 09:00 Calcium Carb (Oyster Shell) [Oysco-500] 1,000 mg PO DAILY 10/28/19 05:00 CBC - COMP BLD CT W/AUTO DIFF [HEME] DAILYLAB CMP [COMPREHENSIVE METABOLIC PANEL] [CHEM] DAILYLAB 10/29/19 05:00 CBC - COMP BLD CT W/AUTO DIFF [HEME] DAILYLAB CMP [COMPREHENSIVE METABOLIC PANEL] [CHEM] DAILYLAB 10/30/19 05:00 CBC - COMP BLD CT W/AUTO DIFF [HEME] DAILYLAB CMP [COMPREHENSIVE METABOLIC PANEL] [CHEM] DAILYLAB 10/31/19 05:00 CBC - COMP BLD CT W/AUTO DIFF [HEME] DAILYLAB CMP [COMPREHENSIVE METABOLIC PANEL] [CHEM] DAILY Subjective - Subjective Patient Reports: Feeling Better Objective Vital Signs: Vital Signs - 24 hr 10/26/19 10/26/19 10/26/19 13:00 16:14 20:23 Temperature 36.7 C 36.5 C 36.9 C Heart Rate [ 68 58 L 58 L Brachial] Respiratory 16 16 16 Rate Blood Pressure 150/76 H 152/79 H 143/81 H [Right Brachial artery] O2 Saturation 98 100 95 10/27/19 10/27/19 10/27/19 00:01 05:00 07:50 Temperature 36.9 C 36.9 C 36.8 C Heart Rate [ 58 L 60 64 Brachial] Respiratory 16 16 17 Rate Blood Pressure 156/80 H 161/87 H 150/88 H [Right Brachial artery] O2 Saturation 99 97 96 Oxygen O2 Source Room air I&O (Last 24 Hrs): Intake and Output Totals x24h 10/25/19 10/26/19 10/27/19 23:59 23:59 23:59 Intake Total 1490 1100 420 Output Total 825 400 Balance 665 700 420 General: Alert, Oriented x3, No acute distress HEENT: Atraumatic Neck: Supple Neuro: Alert, Non Focal, Oriented Times 3 Cardiovascular: Regular rate, Normal S1, Normal S2 Respiratory: Chest non-tender, No respiratory distress Abdomen: Normal bowel sounds, Soft Extremities: Normal pulses - Results Results: Laboratory Results WBC 10.3 x10^3/uL (4.8-10.8) 10/27/19 05:10 RBC 4.09 10^6/uL (4.20-5.40) L 10/27/19 05:10 Hgb 11.5 g/dL (12.0-16.0) L 10/27/19 05:10 Hct 36.7 % (37.0-47.0) L 10/27/19 05:10 MCV 89.7 fL (81.0-99.0) 10/27/19 05:10 MCH 28.1 pg (27.0-31.0) 10/27/19 05:10 MCHC 31.3 g/dL (32.0-36.0) L 10/27/19 05:10 RDW 13.8 % (12.0-15.0) 10/27/19 05:10 Plt Count 582 10^3/uL (130-450) H 10/27/19 05:10 MPV 9.5 fL (7.9-10.8) 10/27/19 05:10 Neut # (Auto) 5.7 10^3/uL (1.5-6.6) 10/27/19 05:10 Lymph # (Auto) 2.9 10^3/uL (1.5-3.5) 10/27/19 05:10 [place] # (Auto) 0.9 10^3/uL (0.0-1.0) 10/27/19 05:10 Eos # (Auto) 0.3 10^3/uL (0.0-0.7) 10/27/19 05:10 Baso # (Auto) 0.1 10^3/uL (0.0-0.1) 10/27/19 05:10 Absolute Nucleated RBC 0.00 x10^3/uL 10/27/19 05:10 Nucleated RBC % 0.0 /100WBC 10/27/19 05:10 PT 16.4 secs (9.9-12.6) H 10/21/19 03:25 INR 1.5 (0.8-1.2) H 10/21/19 03:25 APTT 29.2 secs (24.9-33.3) 10/21/19 03:25 Sodium 137 mmol/L (135-145) 10/27/19 05:10 Potassium 4.3 mmol/L (3.5-5.0) 10/27/19 05:10 Chloride 99 mmol/L (101-111) L 10/27/19 05:10 Carbon Dioxide 27 mmol/L (21-32) 10/27/19 05:10 Anion Gap 11.0 (6-13) 10/27/19 05:10 BUN 11 mg/dL (6-20) 10/27/19 05:10 Creatinine 0.9 mg/dL (0.4-1.0) 10/27/19 05:10 Estimated GFR (MDRD) 63 (>89) L 10/27/19 05:10 Glucose 110 mg/dL (70-100) H 10/27/19 05:10 Glycated Hemoglobin 6.0 % (4.6-6.2) 10/21/19 11:15 Estim Average Glucose 126 (70-100) H 10/21/19 11:15 Lactic Acid 1.2 mmol/L (0.5-2.2) 10/21/19 03:25 Calcium 8.6 mg/dL (8.5-10.3) 10/27/19 05:10 Phosphorus 5.2 mg/dL (2.5-4.6) H 10/25/19 14:03 Magnesium 1.7 mg/dL (1.7-2.8) 10/25/19 14:03 Iron 39 ug/dL (28-170) 10/23/19 04:50 TIBC 259 ug/dL (250-450) 10/23/19 04:50 % Saturation 15 % (20-50) L 10/23/19 04:50 Transferrin 185 mg/dL (192-382) L 10/23/19 04:50 Total Bilirubin 0.4 mg/dL (0.2-1.0) 10/27/19 05:10 AST 58 IU/L (10-42) H 10/27/19 05:10 ALT 60 IU/L (10-60) 10/27/19 05:10 Alkaline Phosphatase 131 IU/L (42-121) H 10/27/19 05:10 Total Creatine Kinase 255 IU/L (22-269) 10/21/19 03:25 Troponin I High Sens 32.9 ng/L (2.3-14.8) H* 10/21/19 11:15 B-Natriuretic Peptide 94 pg/mL (5-100) 10/21/19 03:25 Total Protein 8.4 g/dL (6.7-8.2) H 10/27/19 05:10 Albumin 3.4 g/dL (3.2-5.5) 10/27/19 05:10 Globulin 5.0 g/dL (2.1-4.2) H 10/27/19 05:10 Albumin/Globulin Ratio 0.7 (1.0-2.2) L 10/27/19 05:10 Lipase 31 U/L (22-51) 10/21/19 03:25 Vitamin B12 684 pg/mL (180-914) 10/23/19 04:50 25-OH Vitamin D Total 41 ng/mL (30-100) 10/26/19 05:05 Folate 34.00 ng/mL (5.90 - >24.8) 10/23/19 04:50 TSH 0.44 uIU/mL (0.34-5.60) 10/22/19 05:00 PTH Intact 9 pg/mL (12-88) L 10/25/19 14:03 Urine Color DARK YELLOW 10/21/19 03:55 Urine Clarity SL. CLOUDY (CLEAR) 10/21/19 03:55 Urine pH 6.0 PH (5.0-7.5) 10/21/19 03:55 Ur Specific [place] >=1.030 (1.002-1.030) H 10/21/19 03:55 Urine Protein 100 mg/dL (NEGATIVE) H 10/21/19 03:55 Urine Glucose (UA) NEGATIVE mg/dL (NEGATIVE) 10/21/19 03:55 Urine Ketones TRACE mg/dL (NEGATIVE) 10/21/19 03:55 Urine Occult Blood MODERATE (NEGATIVE) H 10/21/19 03:55 Urine Nitrite NEGATIVE (NEGATIVE) 10/21/19 03:55 Urine Bilirubin NEGATIVE (NEGATIVE) 10/21/19 03:55 Urine Urobilinogen 0.2 (NORMAL) E.U./dL (NORMAL) 10/21/19 03:55 Ur Leukocyte Esterase MODERATE (NEGATIVE) H 10/21/19 03:55 Urine RBC 6-10 /HPF (0-5) H 10/21/19 03:55 Urine WBC 6-10 /HPF (0-5) H 10/21/19 03:55 Ur Squamous Epith Cells MANY Squamous (<= Few) H 10/21/19 03:55 Urine Bacteria Few /HPF (None Seen) 10/21/19 03:55 Urine Casts 3-5 Hyaline Casts /LPF 10/21/19 03:55 Ur Microscopic Review INDICATED 10/21/19 03:55 Urine Culture Comments NOT INDICATED 10/21/19 03:55 Urine Opiates Screen NEGATIVE (NEGATIVE) 10/21/19 03:55 Ur Oxycodone Screen NEGATIVE (NEGATIVE) 10/21/19 03:55 Urine Methadone Screen NEGATIVE (NEGATIVE) 10/21/19 03:55 Ur Propoxyphene Screen NEGATIVE (NEGATIVE) 10/21/19 03:55 Ur Barbiturates Screen NEGATIVE (NEGATIVE) 10/21/19 03:55 Ur Tricyclics Screen NEGATIVE (NEGATIVE) 10/21/19 03:55 Ur Phencyclidine Scrn NEGATIVE (NEGATIVE) 10/21/19 03:55 Ur Amphetamine Screen NEGATIVE (NEGATIVE) 10/21/19 03:55 U Methamphetamines Scrn NEGATIVE (NEGATIVE) 10/21/19 03:55 U Benzodiazepines Scrn NEGATIVE (NEGATIVE) 10/21/19 03:55 Urine Cocaine Screen NEGATIVE (NEGATIVE) 10/21/19 03:55 U Cannabinoids Screen NEGATIVE (NEGATIVE) 10/21/19 03:55 Ethyl Alcohol < 5.0 mg/dL 10/21/19 03:25 Coronavirus (PCR) NEGATIVE 10/21/19 03:32 Influenza A (Rapid) Negative (Negative) 10/21/19 03:32 Influenza B (Rapid) Negative (Negative) 10/21/19 03:32 ABX Reporting Has patient been on IV antibiotics over the past 48 hours?: Yes Current Medications - Current Medications Current Medications: Active Medications Acetaminophen (Tylenol) 650 mg PO Q6HR PRN PRN Reason: Pain 1 to 4 Last Admin: 10/27/19 08:37 Dose: 650 mg Aspirin (Ecotrin) 81 mg PO DAILY [facility] Last Admin: 10/27/19 08:39 Dose: 81 mg Bacitracin (Bacitracin) 1 packet TOP PRN PRN PRN Reason: SKIN CARE Calcitriol (Rocaltrol) 0.25 mcg PO BIDWM [facility] Last Admin: 10/27/19 08:39 Dose: 0.25 mcg Calcium Carbonate/Glycine (Oysco-500) 1,000 mg PO DAILY [facility] Last Admin: 10/27/19 08:38 Dose: 1,000 mg Cholecalciferol (Vitamin D3) 1,000 unit PO DAILY [facility] Last Admin: 10/27/19 08:39 Dose: 1,000 unit Enoxaparin Sodium (Lovenox) 40 mg SUBQ DAILY [facility] Last Admin: 10/27/19 08:39 Dose: 40 mg Guaifenesin (Robitussin Dm) 10 ml PO Q6HR PRN PRN Reason: Cough Last Admin: 10/23/19 09:00 Dose: 10 ml Hydrochlorothiazide (Hydrodiuril) 25 mg PO DAILY [facility] Last Admin: 10/27/19 08:39 Dose: 25 mg Cefepime HCl 2 gm/ Sodium (Chloride) 100 mls @ 200 mls/hr IV BID [facility] Stop: 11/01/19 21:29 Last Infusion: 10/27/19 09:26 Dose: Infused Insulin Aspart (Novolog) 1 - 5 unit SUBQ 0800,1200,1700,2100 [facility]; Protocol Last Admin: 10/27/19 07:51 Dose: Not Given Levothyroxine Sodium (Synthroid) 125 mcg PO QDAC [facility] Last Admin: 10/27/19 06:39 Dose: 125 mcg Multivitamins/Minerals (Theragran M) 1 tab PO DAILYWM [facility] Last Admin: 10/27/19 08:39 Dose: 1 tab Ondansetron HCl (Zofran Inj) 4 mg IVP Q6HR PRN PRN Reason: Nausea / Vomiting Polyethylene Glycol (Miralax) 17 gm PO DAILY [facility] Last Admin: 10/27/19 08:40 Dose: Not Given Potassium Chloride (K-Dur) 20 meq PO BID [facility] Last Admin: 10/27/19 08:38 Dose: 20 meq Saccharomyces Boulardii (Florastor) 250 mg PO BIDWM [facility] Last Admin: 10/27/19 08:39 Dose: 250 mg Sertraline HCl (Zoloft) 100 mg PO DAILY [facility] Last Admin: 10/27/19 08:39 Dose: 100 mg Sodium Chloride (Normal Saline Flush 0.9%) 10 ml IVP PRN PRN PRN Reason: NEEDED PER PROVIDER ORDERS Last Admin: 10/26/19 10:08 Dose: 10 ml Sodium Chloride (Normal Saline Flush 0.9%) 10 ml IVP 0100,0900,1700 [facility] Last Admin: 10/27/19 08:40 Dose: 10 ml Aspirin [Aspir 81] 81 mg PO DAILY 11/28/14 Metformin HCl 500 mg PO DAILY 11/28/14 Sertraline HCl [Zoloft] 100 mg PO DAILY 11/28/14 hydroCHLOROthiazide [Hydrochlorothiazide] 1 tab PO DAILY 09/30/17 Calcium/D3/Zinc/Copper/Sunshine [Citracal-D3 Maximum Plus Caplt] 2 each PO BID 10/21/19 Multivit with Calcium,Iron,Min [One Daily Women's] 1 each PO DAILY 10/21/19 Levothyroxine [Synthroid] 125 mcg PO QDAC 10/25/19
[2019-10-27] MEDS ORDERED: CALCIUM CARB (OYSTER SHELL) 500 MG TABLET PO SCH (19:00)
[2019-10-28] MEDS: SODIUM CHLORIDE FLUSH 0.9% 10 ML SYRINGE IVP SCH ×2 (00:44→08:40)
[2019-10-28 05:02] LABS: BASOPHILS % (AUTO) 0.6 %; EOSINOPHILS % (AUTO) 4.4 %; HGB - HEMOGLOBIN 11.1 g/dL (12.0-16.0); LYMPHOCYTES % (AUTO) 30.8 %; MEAN CORPUSCULAR HEMOGLOBIN 28.1 pg (27.0-31.0); MEAN CORPUSCULAR HGB CONC 31.3 g/dL (32.0-36.0); MEAN CORPUSCULAR VOLUME 89.9 fL (81.0-99.0); MEAN PLATELET VOLUME 9.8 fL (7.9-10.8); MONOCYTES % (AUTO) 8.8 %; NEUTROPHILS % (AUTO) 50.4 %; PLT - PLATELET COUNT 580 10^3/uL (130-450); RED BLOOD COUNT 3.95 10^6/uL (4.20-5.40); RED CELL DISTRIBUTION WIDTH 13.9 % (12.0-15.0); WHITE BLOOD COUNT 11.3 x10^3/uL (4.8-10.8)
[2019-10-28 05:16] LABS: ABNORMAL LYMPHS % (MANUAL) 0 %; ALBUMIN 3.2 g/dL (3.2-5.5); ALBUMIN/GLOBULIN RATIO 0.6 (1.0-2.2); BILIRUBIN,TOTAL 0.4 mg/dL (0.2-1.0); CALCIUM 8.8 mg/dL (8.5-10.3); CREATININE 0.8 mg/dL (0.4-1.0); TOTAL PROTEIN 8.2 g/dL (6.7-8.2)
[2019-10-28 05:27] LABS: BAND NEUTROPHILS % (MANUAL) 1 %; EOSINOPHILS # (MANUAL) 0.3 10^3/uL (0-0.7); LYMPHOCYTES # (MANUAL) 3.3 10^3/uL (1.5-3.5); LYMPHOCYTES % (MANUAL) 29 %; METAMYELOCYTES % (MANUAL) 2 %; MONOCYTES # (MANUAL) 1.1 10^3/uL (0.0-1.0); MYELOCYTES % (MANUAL) 3 %
[2019-10-28 05:29] LABS: DIFFERENTIAL COMMENT MANUAL DIFFERENTIAL; PLATELET ESTIMATE, MANUAL INCREASED (>450,000) (NORMAL); PLATELET MORPHOLOGY 1+ LARGE PLATELETS (NORMAL); RBC MORPHOLOGY (MULTIPLE) NORMAL APPEARANCE (NORMAL)
[2019-10-28] MEDS: LEVOTHYROXINE 125 MCG TABLET PO SCH (06:40)
[2019-10-28] MEDS: calcitrioL 0.25 MCG CAPSULE PO SCH (07:57)
[2019-10-28] MEDS: MULTIVITAMIN W/MINERALS TABLET PO SCH (07:57)
[2019-10-28] MEDS: SACCHAROMYCES BOULARDII 250 MG CAPSULE PO SCH (07:57)
[2019-10-28] MEDS: INSULIN ASPART 300 UNIT/3 ML PEN SUBQ SCH ×2 (07:58→12:43)
[2019-10-28] MEDS ORDERED: AMOX/CLAV 875 MG/125 MG TABLET PO SCH (08:00)
[2019-10-28] MEDS: polyethylene glycoL 3350 17 GM PACKET PO SCH (08:39)
[2019-10-28] MEDS: hydroCHLOROthiazide 25 MG TABLET PO SCH (08:39)
[2019-10-28] MEDS: SERTRALINE 50 MG TABLET PO SCH (08:39)
[2019-10-28] MEDS: POTASSIUM CHLORIDE 20 MEQ TABLET PO SCH (08:39)
[2019-10-28] MEDS: ASPIRIN EC 81 MG TABLET PO SCH (08:39)
[2019-10-28] MEDS: CALCIUM CARB (OYSTER SHELL) 500 MG TABLET PO SCH (08:40)
[2019-10-28] MEDS: ENOXAPARIN 40 MG/0.4 ML SYRINGE SUBQ SCH (08:46)
[2019-10-28] MEDS ORDERED: CHOLECALCIFEROL 25 MCG TABLET PO SCH (09:00)
--- NOTE | 2019-10-28 10:02 | Discharge Plan ---
Discharge Plan Problem Reviewed?: Yes Disposition: Home, Self Care Condition: Stable Prescriptions: Amox/Clav 875/125 [Augmentin 875/125] 1 tab PO BIDWM #10 tablet calcitrioL [Rocaltrol] 0.25 mcg PO BIDWM #20 capsule Calcium Carbonate 500 mg PO BID #20 tablet Cholecalciferol (Vitamin D3) [Vitamin D3] 1,000 unit PO DAILY #10 capsule Saccharomyces Boulardii [Florastor] 250 mg PO BID #10 capsule Diet: Diabetic Activity Restrictions: Activity as Tolerated Shower Restrictions: No (fall precaution) Instruction Topics: Amoxicillin Clavulanic Acid tablets, Hypocalcemia Dc, Pneumonia, Calcitriol capsules Health Concerns: Pneumonia and hypoparathyroidism Plan of Treatment: You were found to have pneumonia. Covid 19 test was negative. you were treated with antibiotics. you are prescribed antibiotics Augmentin to continue the treatment course. advise you followup your PCP to have a CXR in one week to monitor. You were found to have lower PTH and lower calcium. Your calcium level was corrected now. You are prescribed calcium table, vitamin D3 and Calcitriol. advise you followup your PCP in one week to monitor Calcium level. Care Goals: stabilization and improvement of your medical conditions Assessment: discussed with you about the care plan, you understood. Additional Instructions or Follow Up instructions: You may followup your PCP in one week, and have calcium level check and CXR. Should your symptoms return or worsen, you may present ER or call 911 for help. No Smoking: If you smoke, Please STOP! Call for help. Follow-up with: JOSEF CLARK MD [Primary Care Provider] -
--- NOTE | 2019-10-28 10:14 | DISCHARGE SUMMARY ---
Discharge Summary Admit Date: 10/21/19 Discharge Date: 10/28/19 Discharging Provider: Rene Blue Primary Care Provider: Bria Puri Condition at Discharge: Stable Discharge Disposition: 01 Home, Self Care Discharge Facility Name: home - DIAGNOSES Admission Diagnoses: (1) Pneumonia (2) Elevated troponin (3) Hypokalemia (4) Diabetes mellitus (5) Hypothyroidism (6) Depression Discharge Diagnoses with Status of Each Condition: (1) Hypoparathyroidism Patient has a lower PTH, patient has low calcium, patient had slightly elevated phosphate.It is likely secondarily to pt's hx of thyroidectomy.Patient is prescribed calcium carbonate, vitamin D3 and calcitriol. advise pt followup PCP to check calcium level in one week, and followup management. (2) CAP (community acquired pneumonia) Patient has 97% sats on room air, patient has no respiratory distress, patient is described antibiotics Augmentin, Advised patient follow PCP for chest x-ray in 1 week (3)hypocalcemia resolved. patient is prescribed calcium carbonate, vitamin D3 and calcitriol. advise pt followup PCP to check calcium level in one week, and followup. management. (4) Diabetes mellitus Chronic (5) Hypokalemia resolved. (6) Anemia Stable (7) Hypothyroidism from thyroidectomy Stable, TSH is normal, continue home medication (9) Depression stable. - HPI History of Present Illness: refer from Dr. Hernandez's HPI on 10/21/2019 Patient is a 64-year-old female who presented to the ED with complaint of dyspnea, cough and fever. Her highest temperature was 103 Fahrenheit. She started experiencing difficulty in breathing yesterday. She has been having fever for 5 days now. She denies any sick contacts. She denies generalized body aches. She denied chest pain, abdominal pain, nausea or vomiting. She reports headache. She had a COVID 19 testing done at the [facility] Results are still pending. This was repeated in the ED. She does not smoke and does not use oxygen at home. Work-up in the ED included a CBC which showed a low white blood cell count of 13.5. She had a temperature of 38 C. Chest x-ray done was indicative of left basilar pneumonia. As a result of the above she was presented for admission for further management. - HOSPITAL COURSE Hospital Course: Patient was admission for fever chills cough and shortness of breathing,Patient was found to have pneumonia main in the left side, patient also was found to have lip numbness, patient was found significantly low calcium level, patient has history of thyroidectomy, patient PTH and calcium level is low, phosphorus level is slightly high, patient is a diagnosis of hypoparathyroidism, patient calcium was replaced and become normal. pt was treated with antibiotic for her pneumonia. Patient is prescribed calcium carbonate, vitamin D3 and calcitriol. patient is described antibiotics Augmentin. hospital course is as the below. (1) Hypoparathyroidism Patient has a lower PTH, patient has low calcium, patient had slightly elevated phosphate.It is likely secondarily to pt's hx of thyroidectomy.Patient is prescribed calcium carbonate, vitamin D3 and calcitriol. advise pt followup PCP to check calcium level in one week, and followup management. (2) CAP (community acquired pneumonia) Patient has 97% sats on room air, patient has no respiratory distress, patient is described antibiotics Augmentin, Advised patient follow PCP for chest x-ray in 1 week (3)hypocalcemia resolved. patient is prescribed calcium carbonate, vitamin D3 and calcitriol. advise pt followup PCP to check calcium level in one week, and followup. management. (4) Diabetes mellitus Chronic (5) Hypokalemia resolved. (6) Anemia Stable (7) Hypothyroidism from thyroidectomy Stable, TSH is normal, continue home medication (9) Depression stable. - ALLERGIES Allergies/Adverse Reactions: Allergies Allergy/AdvReac Type Severity Reaction Status Date / Time lisinopril AdvReac Rash Verified 10/21/19 05:19 - MEDICATIONS Home Medications: Ambulatory Orders Medication Instructions Recorded Confirmed Aspirin [Aspir 81] 81 mg PO DAILY 11/28/14 10/21/19 Metformin HCl 500 mg PO DAILY 11/28/14 10/21/19 Sertraline HCl [Zoloft] 100 mg PO DAILY 11/28/14 10/21/19 hydroCHLOROthiazide 1 tab PO DAILY 09/30/17 10/21/19 [Hydrochlorothiazide] Calcium/D3/Zinc/Copper/Sunshine 2 each PO BID 10/21/19 10/21/19 [Citracal-D3 Maximum Plus Caplt] Multivit with Calcium,Iron,Min 1 each PO DAILY 10/21/19 10/21/19 [One Daily Women's] Levothyroxine [Synthroid] 125 mcg PO QDAC 10/25/19 10/25/19 Amox/Clav 875/125 [Augmentin 1 tab PO BIDWM #10 tablet 10/28/19 875/125] Calcium Carbonate 500 mg PO BID #20 tablet 10/28/19 Cholecalciferol (Vitamin D3) 1,000 unit PO DAILY #10 capsule 10/28/19 [Vitamin D3] Saccharomyces Boulardii [Florastor] 250 mg PO BID #10 capsule 10/28/19 calcitrioL [Rocaltrol] 0.25 mcg PO BIDWM #20 capsule 10/28/19 - PHYSICAL EXAM AT DISCHARGE General Appearance: positive: No acute distress, Alert. negative: Lethargic Eyes Bilateral: positive: Normal inspection, PERRL, No lid inflammation ENT: positive: ENT inspection nml, Pharynx nml, No signs of dehydration. negative: Purulent nasal drainage Neck: positive: Nml inspection, No JVD. negative: Trachea midline, Stiff neck, Tracheal deviation Respiratory: positive: Chest non-tender, No respiratory distress. negative: Wheezes, Rales Cardiovascular: positive: Regular rate & rhythm, No murmur, No gallop. negative: Tachycardia, Bradycardia, Systolic murmur, Diastolic murmur Peripheral Pulses: positive: 2+ Abdomen: positive: Non-tender, No organomegaly, Nml bowel sounds, No distention. negative: Tenderness, Guarding, Rebound Back: positive: Nml inspection. negative: CVA tenderness (R), CVA tenderness (L) Skin: positive: Color nml, No rash, Dry. negative: Cyanosis, Diaphoresis, Pallor Extremities: positive: Non-tender, Full ROM, Nml appearance. negative: Calf tenderness, Filiberto's sign/cords Neurologic/Psychiatric: positive: Oriented x3, Motor nml, Sensation nml. negative: Weakness, Sensory loss, Facial droop, Slurred/abnml speech, Depressed mood/affect - LABS Result Diagrams: 10/28/19 04:25 10/28/19 04:25 - FOLLOW UP Follow Up: You were found to have pneumonia. Covid 19 test was negative. you were treated with antibiotics. you are prescribed antibiotics Augmentin to continue the treatment course. advise you followup your PCP to have a CXR in one week to monitor. You were found to have lower PTH and lower calcium. Your calcium level was corrected now. You are prescribed calcium table, vitamin D3 and Calcitriol. advise you followup your PCP in one week to monitor Calcium level. You may followup your PCP in one week, and have calcium level check and CXR. Should your symptoms return or worsen, you may present ER or call 911 for help. - TIME SPENT Time Spent in Discharge (Minutes): 30
[2019-10-28 13:23] VITALS: BP 140/87
== END 2019-10-28 14:00 | disposition home or self-care (01) | DRG 194 ==
LOC: EDUNIT# → ED 03:05 → MS2 05:52
PROVIDERS: ADMIT Internal Medicine; ATTEND Nurse Practitioner Gerontology
DX: J18.9 Pneumonia, unspecified organism (principal); E87.1 Hypo-osmolality and hyponatremia; R78.81 Bacteremia; E87.6 Hypokalemia; Z20.828 Contact with and (suspected) exposure to other viral communicable diseases; R79.89 Other specified abnormal findings of blood chemistry; E11.9 Type 2 diabetes mellitus without complications; E89.0 Postprocedural hypothyroidism; F32.9 Major depressive disorder, single episode, unspecified; E20.9 Hypoparathyroidism, unspecified; D64.9 Anemia, unspecified; Z79.82 Long term (current) use of aspirin; Z79.84 Long term (current) use of oral hypoglycemic drugs
CPT/HCPCS: 36415; 71045; 71250; 80048; 80053; 81001; 82306; 82310; 82550; 82607; 82746; 83036; 83540; 83605; 83690; 83735; 83880; 83970; 84100; 84132; 84443; 84466; 84484; 85025; 85610; 85730; 87040; 87275; 87276; 93005; 93306; 96365; 96367; 96375; 97161; 97166; 99285; 99291; A9270; J1650; J7040; U0004; 80306; 80320; 81003; 81599; 87086

== ENCOUNTER 2020-05-13 15:21 | Emergency (ER) | payer MEDICARE, OTHER ==
[2020-05-13] MEDS ORDERED: SODIUM CHLORIDE 0.9% 1,000 ML IV STA (15:41)
--- NOTE | 2020-05-13 15:44 | ED Physician Documentation ---
History of Present Illness - Stated complaint Stated Complaint: SYNCOPAL - Chief complaint Chief Complaint: Neuro - History obtained from History obtained from: Patient - Additonal information Additional information: Patient comes emergency department after having a syncopal episode in the parking lot. The patient was on her way here in the car with a family member who had a laceration. According to family, the patient had looked at the blood and then rolled down the window, saying she did not feel good. The patient states she remembers feeling a little "woozy" after seeing the laceration and began to feel hot in the car. She states she began to see black spots, but when she got out of the car, she suddenly felt very faint. Patient states that she does not remember anything after that until being brought back into the emergency department here. Nurses state that they noticed that the patient seemed to be staggering and requiring assistance to be held up in oh standing position until she be put in the wheelchair. Patient denies chest pain or shortness of breath. No focal neurologic deficits. No history of heart disease or stroke. The patient has not been ill with anything recently. She was feeling fine before looking at the cut. She states that right now, she just still feels tired. No other complaints at this time. Review of Systems Ten Systems: 10 systems reviewed and negative Constitutional: reports: Reviewed and negative Eyes: reports: Reviewed and negative Ears: reports: Reviewed and negative Nose: reports: Reviewed and negative Throat: reports: Reviewed and negative Cardiac: reports: Reviewed and negative. denies: Chest pain / pressure Respiratory: reports: Reviewed and negative GI: reports: Reviewed and negative. 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 : None HEENT: None Psych: Depression Musculoskeletal: None Derm: None - Past Surgical History Past Surgical History: Yes General: Other - Present Medications Home Medications: Ambulatory Orders Medication Instructions Recorded Confirmed Aspirin [Aspir 81] 81 mg PO DAILY 11/28/14 10/21/19 Metformin HCl 500 mg PO DAILY 11/28/14 10/21/19 Sertraline HCl [Zoloft] 100 mg PO DAILY 11/28/14 10/21/19 hydroCHLOROthiazide 1 tab PO DAILY 09/30/17 10/21/19 [Hydrochlorothiazide] Calcium/D3/Zinc/Copper/Sunshine 2 each PO BID 10/21/19 10/21/19 [Citracal-D3 Maximum Plus Caplt] Multivit with Calcium,Iron,Min 1 each PO DAILY 10/21/19 10/21/19 [One Daily Women's] Levothyroxine [Synthroid] 125 mcg PO QDAC 10/25/19 10/25/19 Amox/Clav 875/125 [Augmentin 1 tab PO BIDWM #10 tablet 10/28/19 875/125] Calcium Carbonate 500 mg PO BID #20 tablet 10/28/19 Cholecalciferol (Vitamin D3) 1,000 unit PO DAILY #10 capsule 10/28/19 [Vitamin D3] Saccharomyces Boulardii [Florastor] 250 mg PO BID #10 capsule 10/28/19 calcitrioL [Rocaltrol] 0.25 mcg PO BIDWM #20 capsule 10/28/19 Potassium Chloride [K-Dur] 20 meq PO BIDWM #20 tablet 05/13/20 - Allergies Allergies/Adverse Reactions: Allergies Allergy/AdvReac Type Severity Reaction Status Date / Time lisinopril AdvReac Rash Verified 05/13/20 15:29 - Social History Does the pt smoke?: No Smoking Status: Former smoker Does the pt drink ETOH?: No Does the pt have substance abuse?: No - Immunizations Immunizations are current?: Yes - POLST Patient has POLST: No POLST Status: Full Code PD ED PE NORMAL - Vitals Vital signs reviewed: Yes - General General: Alert and oriented X 3, No acute distress, Well developed/nourished, Other (Patient appears slightly drowsy but otherwise in no apparent distress.) - HEENT HEENT: Atraumatic, PERRL, EOMI, Moist mucous membranes - Neck Neck: Supple, no meningeal sign - Cardiac Cardiac: RRR, No murmur - Respiratory Respiratory: No respiratory distress, Clear bilaterally - Abdomen Abdomen: Soft, Non tender, Non distended - Back Back: No CVA TTP - Derm Derm: Warm and dry, No rash, Other (mild pallor) - Extremities Extremities: No deformity, No edema, No calf tenderness / cord - Neuro Neuro: Alert and oriented X 3, 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, No motor deficit, No sensory deficit, Normal speech - Psych Psych: Normal mood, Normal affect Results - Vitals Vitals: Vital Signs - 24 hr 05/13/20 05/13/20 05/13/20 15:25 15:57 16:49 Temperature 36.6 C Heart Rate 110 H 60 80 Respiratory 20 18 16 Rate Blood Pressure 92/42 L 122/87 H 156/80 H O2 Saturation 96 99 99 Oxygen O2 Source Room air - Labs Labs: Laboratory Tests 05/13/20 05/13/20 05/13/20 15:30 15:30 15:30 WBC 10.3 RBC 4.13 L Hgb 11.6 L Hct 36.7 L MCV 88.9 MCH 28.1 MCHC 31.6 L RDW 13.1 Plt Count 412 MPV 10.0 Neut # (Auto) 4.2 Lymph # (Auto) 4.9 H Floyd # (Auto) 0.8 Eos # (Auto) 0.3 Baso # (Auto) 0.1 Absolute Nucleated RBC 0.00 Nucleated RBC % 0.0 Sodium 138 Potassium 2.9 L Chloride 95 L Carbon Dioxide 27 Anion Gap 16.0 H BUN 13 Creatinine 1.0 Estimated GFR (MDRD) 55 L Glucose 127 H Calcium 8.6 Total Bilirubin 0.6 AST 28 ALT 21 Alkaline Phosphatase 100 Troponin I High Sens 7.2 Total Protein 8.5 H Albumin 3.9 Globulin 4.6 H Albumin/Globulin Ratio 0.8 L Lipase 33 PD MEDICAL DECISION MAKING - ED course Complexity details: reviewed results, re-evaluated patient, considered differential, d/w patient ED course: The patient had symptoms suspicious for a vagal reaction, and did not have any focal neurologic deficits, either reported subjectively by the pt, or or noted objectively. She was worked up with labs and EKG, and treated with IV fluids in the emergency department. Work-up was unremarkable. I felt the pt was stable for d/c home. We have discussed getting plenty of rest and fluids this evening. We have discussed the usual indications for return. Departure - Departure Disposition: Home, Self Care Clinical Impression: Vasovagal syncope, Hypokalemia Condition: Stable Instructions: ED Potassium Deficiency, ED Syncope Vasovagal Prescriptions: Potassium Chloride [K-Dur] 20 meq PO BIDWM #20 tablet Comments: Had a fainting episode today, most likely after seeing your 's wound. This is not an uncommon scenario. Your labs mostly look good, but you were fou nd to have quite a low potassium. This may have contributed to your symptoms today, as well. You have been started on past potassium supplementation in the emergency department, but will need to take supplemental potassium for about the next 10 days. You should make an appointment to be seen by your primary doctor sometime before Lyndsey and have your potassium rechecked, to make sure it is improving. If you develop chest pain, shortness of breath, or further fainting episodes, please return to the emergency department. You will most likely feel weak and tired today. It is best to go home and get some rest and drink plenty of fluids. You have been treated with IV fluids in the emergency department, as well. Discharge Date/Time: 05/13/20 17:27
[2020-05-13 15:53] LABS: BASOPHILS # (AUTO) 0.1 10^3/uL (0.0-0.1); BASOPHILS % (AUTO) 0.5 %; EOSINOPHILS # (AUTO) 0.3 10^3/uL (0.0-0.7); HGB - HEMOGLOBIN 11.6 g/dL (12.0-16.0); LYMPHOCYTES # (AUTO) 4.9 10^3/uL (1.5-3.5); LYMPHOCYTES % (AUTO) 47.2 %; MEAN CORPUSCULAR HEMOGLOBIN 28.1 pg (27.0-31.0); MEAN CORPUSCULAR HGB CONC 31.6 g/dL (32.0-36.0); MEAN CORPUSCULAR VOLUME 88.9 fL (81.0-99.0); MONOCYTES # (AUTO) 0.8 10^3/uL (0.0-1.0); NEUTROPHILS # (AUTO) 4.2 10^3/uL (1.5-6.6); NEUTROPHILS % (AUTO) 41.1 %; PLT - PLATELET COUNT 412 10^3/uL (130-450); RED BLOOD COUNT 4.13 10^6/uL (4.20-5.40); RED CELL DISTRIBUTION WIDTH 13.1 % (12.0-15.0); WHITE BLOOD COUNT 10.3 x10^3/uL (4.8-10.8)
[2020-05-13 16:07] LABS: ALBUMIN 3.9 g/dL (3.2-5.5); ALBUMIN/GLOBULIN RATIO 0.8 (1.0-2.2); BILIRUBIN,TOTAL 0.6 mg/dL (0.2-1.0); CALCIUM 8.6 mg/dL (8.5-10.3); TOTAL PROTEIN 8.5 g/dL (6.7-8.2)
[2020-05-13 16:50] VITALS: BP 156/80
[2020-05-13] MEDS ORDERED: POTASSIUM CHLORIDE 20 MEQ TABLET PO STA (16:51)
== END 2020-05-13 17:27 | disposition home or self-care (01) ==
LOC: ED 15:21
DX: R55 Syncope and collapse (principal); E87.6 Hypokalemia; I10 Essential (primary) hypertension; E11.9 Type 2 diabetes mellitus without complications; Z79.84 Long term (current) use of oral hypoglycemic drugs; Z79.82 Long term (current) use of aspirin; Z87.891 Personal history of nicotine dependence
CPT/HCPCS: 36415; 80053; 83690; 84484; 85025; 93005; 99283; 99284; A9270

== ENCOUNTER 2020-10-29 10:09 | Emergency (ER) | payer MEDICARE, OTHER ==
--- OUTSIDE RECORDS SUMMARY | 2020-10-29 10:29 | EXTERNAL MEDICAL SUMMARY RPT | Continuity of Care Document ---
:1955 Demographics Phone Unavailable Preferred Language Unknown Marital Status Unknown Sabianism Affiliation Unknown Race Unknown Ethnic Group Unknown Author Organization [facility] Address [address] [id number] Phone Allergies Encounters Medications Problems Results
[2020-10-29] MEDS ORDERED: FAMOTIDINE 20 MG TABLET PO STA (10:55)
[2020-10-29] MEDS ORDERED: predniSONE 20 MG TABLET PO STA (10:55)
--- NOTE | 2020-10-29 11:01 | ED Physician Documentation ---
History of Present Illness - Stated complaint Stated Complaint: RASH ON FACE - Chief complaint Chief Complaint: Allergic Rx - History obtained from History obtained from: Patient - Additonal information Additional information: Patient comes emergency department chief complaint of redness, swelling, and itching around her eyes for the last several days. She states that she worked in her garden about 4 days ago and that evening, began to notice some itching and swelling around her eyes. Patient states she woke up the next morning and there was redness and "blotchiness" of the skin. Patient states that she tried taking Benadryl, as well as using topical Benadryl, and this does not seem to have helped her symptoms. She denies any rash anywhere else, though she did have some itching on her neck and shoulders. No other exposures. No use of new cosmetics or creams. No new medications or foods. Patient states she has no other allergies. No shortness of breath or throat tightness. Review of Systems Ten Systems: 10 systems reviewed and negative Constitutional: reports: Reviewed and negative Eyes: reports: Reviewed and negative Ears: reports: Reviewed and negative Nose: reports: Reviewed and negative Throat: reports: Reviewed and negative Cardiac: reports: Reviewed and negative Respiratory: reports: Reviewed and negative GI: reports: Reviewed and negative : reports: Reviewed and negative Skin: reports: Rash Musculoskeletal: reports: Reviewed and negative Neurologic: reports: Reviewed and negative Psychiatric: reports: Reviewed and negative Endocrine: reports: Reviewed and negative Immunocompromised: reports: Reviewed and negative PD PAST MEDICAL HISTORY - Past Medical History Cardiovascular: Hypertension Respiratory: None Endocrine/Autoimmune: Type 2 diabetes, HyPERthyroidism 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 : None HEENT: None Psych: Depression Musculoskeletal: None Derm: None - Past Surgical History Past Surgical History: Yes General: Other - Present Medications Home Medications: Ambulatory Orders Medication Instructions Recorded Confirmed Aspirin [Aspir 81] 81 mg PO DAILY 11/28/14 10/21/19 Metformin HCl 500 mg PO DAILY 11/28/14 10/21/19 Sertraline HCl [Zoloft] 100 mg PO DAILY 11/28/14 10/21/19 hydroCHLOROthiazide 1 tab PO DAILY 09/30/17 10/21/19 [Hydrochlorothiazide] Calcium/D3/Zinc/Copper/Sunshine 2 each PO BID 10/21/19 10/21/19 [Citracal-D3 Maximum Plus Caplt] Multivit with Calcium,Iron,Min 1 each PO DAILY 10/21/19 10/21/19 [One Daily Women's] Levothyroxine [Synthroid] 125 mcg PO QDAC 10/25/19 10/25/19 Calcium Carbonate 500 mg PO BID #20 tablet 10/28/19 Cholecalciferol (Vitamin D3) 1,000 unit PO DAILY #10 capsule 10/28/19 [Vitamin D3] Saccharomyces Boulardii [Florastor] 250 mg PO BID #10 capsule 10/28/19 calcitrioL [Rocaltrol] 0.25 mcg PO BIDWM #20 capsule 10/28/19 Potassium Chloride [K-Dur] 20 meq PO BIDWM #20 tablet 05/13/20 Famotidine [Pepcid] 20 mg PO BID #6 tablet 10/29/20 predniSONE [Deltasone] 60 mg PO DAILY 3 Days #9 tablet 10/29/20 - Allergies Allergies/Adverse Reactions: Allergies Allergy/AdvReac Type Severity Reaction Status Date / Time lisinopril AdvReac Rash Verified 10/29/20 10:11 - Social History Does the pt smoke?: No Smoking Status: Former smoker Does the pt drink ETOH?: No Does the pt have substance abuse?: No - Immunizations Immunizations are current?: Yes - POLST Patient has POLST: No POLST Status: Full Code PD ED PE NORMAL - Vitals Vital signs reviewed: Yes - General General: Alert and oriented X 3, No acute distress, Well developed/nourished - HEENT HEENT: Atraumatic, PERRL, EOMI, Moist mucous membranes, Other (Symmetrical bilateral periorbital erythema and mild edema with urticaria more distinctly defined adjacently. No swelling of lips or tongue.) - Neck Neck: Supple, no meningeal sign - Cardiac Cardiac: RRR, No murmur - Respiratory Respiratory: No respiratory distress, Clear bilaterally - Derm Derm: Warm and dry, Other (Urticarial rash with coalescence as noted above.) - Extremities Extremities: No deformity - Neuro Neuro: Alert and oriented X 3 - Psych Psych: Normal mood, Normal affect Results - Vitals Vitals: Vital Signs - 24 hr 10/29/20 10:11 Temperature 36.7 C Heart Rate 64 Respiratory 18 Rate Blood Pressure 140/79 H O2 Saturation 99 Oxygen O2 Source Room air PD MEDICAL DECISION MAKING - ED course Complexity details: considered differential, d/w patient ED course: I discussed with the patient that is not clear what she is reacting to, but that she does have symptoms consistent with an allergic reaction sometime. We will add prednisone and Pepcid to her medication regimen at home for the next few days. We have discussed that this is a self-limited condition which would be expected to resolve over the next few days. If the patient is not feeling better by the end of the week, she should follow-up with her primary care physician. Departure - Departure Clinical Impression: Allergic urticaria Condition: Stable Instructions: ED Allergic Reaction General Other Prescriptions: predniSONE [Deltasone] 60 mg PO DAILY 3 Days #9 tablet Famotidine [Pepcid] 20 mg PO BID #6 tablet Comments: It is not clear what is causing your reaction, but you do appear to have an allergic reaction to something. Most likely, it is something in the environment that you are exposed to while you were working in your yard. You may take the medications prescribed, along with Benadryl, to help with the rash and itching. Mostly, your body will need to work through this reaction on its own, but the medications can help to speed up this process. Please follow-up with your [facility] if your symptoms are not better by the end of the week.
[2020-10-29 12:27] VITALS: BP 144/77
== END 2020-10-29 12:31 | disposition home or self-care (01) ==
LOC: ED 10:09
DX: L50.0 Allergic urticaria (principal); I10 Essential (primary) hypertension; E11.9 Type 2 diabetes mellitus without complications; Z79.84 Long term (current) use of oral hypoglycemic drugs; Z79.82 Long term (current) use of aspirin; Z87.891 Personal history of nicotine dependence
CPT/HCPCS: 99282; 99284; A9270; J7512

== ENCOUNTER 2021-02-20 16:07 | Emergency (ER) | payer MEDICARE, OTHER ==
[2021-02-20 16:13] VITALS: BP 147/74
--- NOTE | 2021-02-20 17:09 | ED Physician Documentation ---
History of Present Illness - Stated complaint Stated Complaint: RT EAR PX/SWELLING - Chief complaint Chief Complaint: Heent - History obtained from History obtained from: Patient - Additonal information Additional information: Pt here w/ right ear pain and mild swelling. Noticed a couple of days ago. No ear drainage. Denies any fever, chills, cough or URI sx, cp, dyspnea, or weakenss. No meds attempted. No swimming, ear trauma, or qtip use. Review of Systems Ten Systems: 10 systems reviewed and negative Constitutional: reports: Reviewed and negative Eyes: reports: Reviewed and negative Ears: reports: Loss of hearing, Ear pain, Reviewed and negative, Other. denies: Drainage/discharge, Tinnitus/ringing, Foreign body Nose: reports: Reviewed and negative Throat: reports: Reviewed and negative Cardiac: reports: Reviewed and negative Respiratory: reports: Reviewed and negative GI: reports: Reviewed and negative : reports: Reviewed and negative Skin: reports: Reviewed and negative Musculoskeletal: reports: Reviewed and negative Neurologic: reports: Reviewed and negative Psychiatric: reports: Reviewed and negative Endocrine: reports: Reviewed and negative PD PAST MEDICAL HISTORY - Past Medical History Past Medical History: Yes Cardiovascular: Hypertension Respiratory: None Endocrine/Autoimmune: Type 2 diabetes, HyPERthyroidism GI: None 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 : None HEENT: None Psych: Depression Musculoskeletal: None Derm: None - Past Surgical History Past Surgical History: Yes General: Other - Present Medications Home Medications: Ambulatory Orders Medication Instructions Recorded Confirmed Aspirin [Aspir 81] 81 mg PO DAILY 11/28/14 10/29/20 Metformin HCl 500 mg PO DAILY 11/28/14 10/29/20 Sertraline HCl [Zoloft] 100 mg PO DAILY 11/28/14 10/29/20 hydroCHLOROthiazide 1 tab PO DAILY 09/30/17 10/29/20 [Hydrochlorothiazide] Calcium/D3/Zinc/Copper/Sunshine 2 each PO BID 10/21/19 10/29/20 [Citracal-D3 Maximum Plus Caplt] Multivit with Calcium,Iron,Min 1 each PO DAILY 10/21/19 10/29/20 [One Daily Women's] Levothyroxine [Synthroid] 125 mcg PO QDAC 10/25/19 10/29/20 Calcium Carbonate 500 mg PO BID #20 tablet 10/28/19 10/29/20 Cholecalciferol (Vitamin D3) 1,000 unit PO DAILY #10 capsule 10/28/19 10/29/20 [Vitamin D3] Saccharomyces Boulardii [Florastor] 250 mg PO BID #10 capsule 10/28/19 10/29/20 calcitrioL [Rocaltrol] 0.25 mcg PO BIDWM #20 capsule 10/28/19 Potassium Chloride [K-Dur] 20 meq PO BIDWM #20 tablet 05/13/20 10/29/20 Famotidine [Pepcid] 20 mg PO BID #6 tablet 10/29/20 predniSONE [Deltasone] 60 mg PO DAILY 3 Days #9 tablet 10/29/20 Ciproflox/Dexameth Otic Drops 4 drops OT BID #7.5 ml 02/20/21 [Ciprodex Otic Drops] - Allergies Allergies/Adverse Reactions: Allergies Allergy/AdvReac Type Severity Reaction Status Date / Time lisinopril AdvReac Rash Verified 02/20/21 16:11 - Social History Does the pt smoke?: No Smoking Status: Never smoker Does the pt drink ETOH?: No Does the pt have substance abuse?: No - Immunizations Immunizations are current?: Yes - POLST Patient has POLST: No POLST Status: Full Code PD ED PE NORMAL - Vitals Vital signs reviewed: Yes - General General: Alert and oriented X 3, No acute distress, Well developed/nourished - HEENT HEENT: Atraumatic, PERRL, Moist mucous membranes, Pharynx benign, Other (Right ext ear slightly reddish, dry, mild irritation of the ear canal. TM normal. No pain on scalp, no facial swelling. Left TM and ext ear nl. ) - Neck Neck: Supple, no meningeal sign, No JVD - Cardiac Cardiac: RRR, No murmur - Respiratory Respiratory: No respiratory distress, Clear bilaterally - Abdomen Abdomen: Normal bowel sounds, Soft, Non tender, Non distended - Derm Derm: Normal color, Warm and dry, No rash - Extremities Extremities: No deformity, No edema - Neuro Neuro: Alert and oriented X 3, No motor deficit, No sensory deficit, Normal speech Eye Opening: Spontaneous Motor: Obeys Commands Verbal: Oriented GCS Score: 15 - Psych Psych: Normal mood, Normal affect Results - Vitals Vitals: Vital Signs - 24 hr 09/22/21 16:11 Temperature 36.7 C Heart Rate 63 Respiratory 19 Rate Blood Pressure 147/74 H O2 Saturation 98 Oxygen O2 Source Room air PD MEDICAL DECISION MAKING - ED course Complexity details: considered differential, d/w patient ED course: Pt presents w/ right ear pain and mild ext ear swelling. Her TM is normal. We will treat for otitis externa a/ ciprodex and pt to take prn ibuprofen and tylenol. I expect sx to improve in the next several days. Return precautions reviewed w/ pt. Departure - Departure Disposition: 01 Home, Self Care Clinical Impression: Otitis externa Condition: Good Instructions: ED Otitis Externa Prescriptions: Ciproflox/Dexameth Otic Drops [Ciprodex Otic Drops] 4 drops OT BID #7.5 ml
== END 2021-02-20 17:12 | disposition home or self-care (01) ==
LOC: ED 16:07
DX: H60.91 Unspecified otitis externa, right ear (principal); I10 Essential (primary) hypertension; E11.9 Type 2 diabetes mellitus without complications; Z79.84 Long term (current) use of oral hypoglycemic drugs
CPT/HCPCS: 99282; 99283

== ENCOUNTER 2021-10-18 16:32 | Emergency (ER) | payer MEDICARE, OTHER ==
[2021-10-18] MEDS ORDERED: NIRMATRELVIR/RITONAVIR PREPACK PO STA (17:33)
--- NOTE | 2021-10-18 17:35 | ED Physician Documentation ---
History of Present Illness - Stated complaint Stated Complaint: C+,FEVER - Chief complaint Chief Complaint: Fever - History obtained from History obtained from: Patient - History of Present Illness Timing: Today Pain level max: 0 Pain level now: 0 - Additonal information Additional information: Patient states that she began to feel feverish today so she took a COVID test which was positive. She states that she called "the ER" and was told to come in for Paxlovid. She states that she had a fever at home, this was subjective. No cough. No abdominal pain. No vomiting. Patient states otherwise she feels well. 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 : None HEENT: None Psych: Depression Musculoskeletal: None Derm: None - Past Surgical History Past Surgical History: Yes General: Other - Present Medications Home Medications: Ambulatory Orders Medication Instructions Recorded Confirmed Aspirin [Aspir 81] 81 mg PO DAILY 11/28/14 10/18/21 Sertraline HCl [Zoloft] 100 mg PO DAILY 11/28/14 10/18/21 hydroCHLOROthiazide 1 tab PO DAILY 09/30/17 10/18/21 [Hydrochlorothiazide] Levothyroxine [Synthroid] 125 mcg PO QDAC 10/25/19 10/18/21 - Allergies Allergies/Adverse Reactions: Allergies Allergy/AdvReac Type Severity Reaction Status Date / Time lisinopril AdvReac Rash Verified 10/18/21 16:49 - Social History Does the pt smoke?: No Smoking Status: Never smoker Does the pt drink ETOH?: No Does the pt have substance abuse?: No - Immunizations Immunizations are current?: Yes - POLST Patient has POLST: No POLST Status: Full Code PD ED PE NORMAL - Vitals Vital signs reviewed: Yes - General General: Alert and oriented X 3, No acute distress - HEENT HEENT: Moist mucous membranes - Neck Neck: Supple, no meningeal sign, No bony TTP - Cardiac Cardiac: RRR, Strong equal pulses - Respiratory Respiratory: No respiratory distress, Clear bilaterally - Abdomen Abdomen: Soft, Non tender, Non distended - Derm Derm: Warm and dry - Extremities Extremities: No edema - Neuro Neuro: Alert and oriented X 3 - Psych Psych: Normal mood, Normal affect Results - Vitals Vitals: Vital Signs - 24 hr 10/18/21 10/18/21 10/18/21 16:46 17:57 18:00 Temperature 36.9 C 37.4 C Heart Rate 90 88 Respiratory 20 18 20 Rate Blood Pressure 127/68 142/81 H O2 Saturation 97 96 Oxygen O2 Source Room air PD MEDICAL DECISION MAKING - ED course Complexity details: reviewed results, re-evaluated patient, considered differential, d/w patient ED course: Patient does not have any history of liver disease or kidney disease. She is not on any medications that are contraindicated for Paxlovid. She request Paxlovid. This was given to her. Patient will follow up with her doctor for further care. No hypoxia. No respiratory distress. Patient counseled regarding signs and symptoms for which I believe and urgent re-evaluation would be necessary. Patient with good understanding of and agreement to plan and is comfortable going home at this time This document was made in part using voice recognition software. While efforts are made to proofread this document, sound alike and grammatical errors may occur. Departure - Departure Disposition: 01 Home, Self Care Clinical Impression: COVID-19 Condition: Good Instructions: COVID-19 [facility] Follow-Up: JOSEF CLARK MD [Primary Care Provider] - Within 1 week Comments: You were given Paxlovid today. Take the medication as prescribed. Follow-up with your doctor for further care. Return for any significant difficulty breathing or low oxygen saturations. Discharge Date/Time: 10/18/21 18:00
[2021-10-18 17:57] VITALS: BP 142/81
== END 2021-10-18 18:00 | disposition home or self-care (01) ==
LOC: ED 16:32
DX: U07.1 COVID-19 (principal); I10 Essential (primary) hypertension; E11.9 Type 2 diabetes mellitus without complications
CPT/HCPCS: 99282; 99283; J3490

== ENCOUNTER 2022-03-05 04:20 | Outpatient (CLI) | payer MEDICARE, OTHER | END 2022-03-05 04:21 | disposition critical access hospital (66) | LOC: EMS 04:20 | DX: R07.9 Chest pain, unspecified (principal); R06.4 Hyperventilation | CPT/HCPCS: A0425; A0427 ==

== ENCOUNTER 2022-03-05 04:45 | Emergency (ER) | payer MEDICARE, OTHER ==
--- NOTE | 2022-03-05 05:10 | ED Physician Documentation ---
PD HPI CHEST PAIN - Stated complaint Stated Complaint: CHEST PX - Chief complaint Chief Complaint: Cardiac - History obtained from History obtained from: Patient - Additional information Additional information: 66-year-old woman with history of high blood pressure, hyperlipidemia, non- smoker, no family history of coronary artery disease presents after waking from sleep with right-sided chest pain radiating to the back, pleuritic in nature. 2 mg of nitro and 325 aspirin in route along with morphine with improvement in symptoms. Patient now endorsing generalized malaise. 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 : None HEENT: None Psych: Depression Musculoskeletal: None Derm: None - Past Surgical History Past Surgical History: Yes General: Other - Present Medications Home Medications: Ambulatory Orders Medication Instructions Recorded Confirmed Aspirin [Aspir 81] 81 mg PO DAILY 11/28/14 03/05/22 Sertraline HCl [Zoloft] 100 mg PO DAILY 11/28/14 03/05/22 hydroCHLOROthiazide 1 tab PO DAILY 09/30/17 03/05/22 [Hydrochlorothiazide] Levothyroxine [Synthroid] 125 mcg PO QDAC 10/25/19 03/05/22 - Allergies Allergies/Adverse Reactions: Allergies Allergy/AdvReac Type Severity Reaction Status Date / Time lisinopril AdvReac Rash Verified 03/05/22 04:55 - Social History Does the pt smoke?: No Smoking Status: Never smoker Does the pt drink ETOH?: No Does the pt have substance abuse?: No - Immunizations Immunizations are current?: Yes - POLST Patient has POLST: No POLST Status: Full Code PD ED PE NORMAL - Vitals Vital signs reviewed: Yes - General General: Alert and oriented X 3, No acute distress, Well developed/nourished - HEENT HEENT: Atraumatic, PERRL, EOMI - Neck Neck: Supple, no meningeal sign - Cardiac Cardiac: RRR - Respiratory Respiratory: No respiratory distress, Clear bilaterally - Abdomen Abdomen: Non tender, Non distended - Derm Derm: Normal color, Warm and dry - Extremities Extremities: No deformity - Neuro Neuro: Alert and oriented X 3 - Psych Psych: Normal mood, Normal affect Results - Vitals Vitals: Vital Signs - 24 hr 03/05/22 03/05/22 03/05/22 04:51 05:41 06:04 Temperature 36.0 C L Heart Rate 107 H 67 66 Respiratory 19 15 16 Rate Blood Pressure 157/118 H 142/83 H 148/84 H O2 Saturation 99 98 95 03/05/22 06:54 Temperature Heart Rate 62 Respiratory 15 Rate Blood Pressure 141/85 H O2 Saturation 96 Oxygen O2 Source Room air - EKG (time done) 0502 Rate: Rate (enter#) (65) Rhythm: NSR [place]: Normal Intervals: Normal [place] QRS: Normal Ischemia: Normal ST segments Computer interpretation: Agree with computer 0703 Rate: Rate (enter#) (65) Rhythm: NSR [place]: Normal Intervals: Normal [place] QRS: Normal Ischemia: Normal ST segments Compare to prior EKG: Unchanged from prior EKG (unchanged from 2 hours prior) - Labs Labs: Laboratory Tests 03/05/22 03/05/22 03/05/22 05:09 05:09 05:09 WBC 7.7 RBC 4.19 L Hgb 11.8 L Hct 37.4 MCV 89.3 MCH 28.2 MCHC 31.6 L RDW 13.8 Plt Count 369 MPV 10.1 Neut # (Auto) 4.3 Lymph # (Auto) 2.5 [place] # (Auto) 0.6 Eos # (Auto) 0.3 Baso # (Auto) 0.1 Absolute Nucleated RBC 0.00 Nucleated RBC % 0.0 D-Dimer 1012.2 H Sodium 138 Potassium 3.1 L Chloride 100 L Carbon Dioxide 25 Anion Gap 13.0 BUN 19 Creatinine 0.9 Estimated GFR (MDRD) 62 L Glucose 146 H Calcium 7.9 L Total Bilirubin 0.7 AST 37 ALT 32 Alkaline Phosphatase 80 Troponin I High Sens B-Natriuretic Peptide Total Protein 8.5 H Albumin 4.1 Globulin 4.4 H Albumin/Globulin Ratio 0.9 L Lipase 47 03/05/22 03/05/22 03/05/22 05:09 05:09 07:13 WBC RBC Hgb Hct MCV MCH MCHC RDW Plt Count MPV Neut # (Auto) Lymph # (Auto) [place] # (Auto) Eos # (Auto) Baso # (Auto) Absolute Nucleated RBC Nucleated RBC % D-Dimer Sodium Potassium Chloride Carbon Dioxide Anion Gap BUN Creatinine Estimated GFR (MDRD) Glucose Calcium Total Bilirubin AST ALT Alkaline Phosphatase Troponin I High Sens 63.2 H* 100.8 H* B-Natriuretic Peptide 54 Total Protein Albumin Globulin Albumin/Globulin Ratio Lipase PD MEDICAL DECISION MAKING - ED course ED course: 66-year-old presents for evaluation of right-sided chest pain waking her from sleep, she has nitro, aspirin, morphine on board and appears comfortable at this time. Will obtain work-up to r/o pulm embolism, [place]. unlikely pneumonia given no fevers. CTA with no evidence of PE. initial troponin mildly elevated with uptrending second trop. Note that her daughter arrived and told us that the patient's grandson just in motorcycle accident tonight. Suspect takotsubo cardiomyopathy as underlying etiology. EKG noncontributory with second EKG unchanged from prior. Plan to attempt transfer for further cardiac evaluation in setting of uptrending troponins. patient will need echocardiogram, telemetry monitoring, trending of troponins. Patient endorsed to Dr. Stuart, daytime ED MD. Departure - Departure Clinical Impression: NSTEMI (non-ST elevated myocardial infarction) Condition: Stable
[2022-03-05 05:29] LABS: BASOPHILS # (AUTO) 0.1 10^3/uL (0.0-0.1); BASOPHILS % (AUTO) 0.6 %; EOSINOPHILS # (AUTO) 0.3 10^3/uL (0.0-0.7); EOSINOPHILS % (AUTO) 3.5 %; HCT - HEMATOCRIT 37.4 % (37.0-47.0); HGB - HEMOGLOBIN 11.8 g/dL (12.0-16.0); LYMPHOCYTES # (AUTO) 2.5 10^3/uL (1.5-3.5); LYMPHOCYTES % (AUTO) 32.6 %; MEAN CORPUSCULAR HEMOGLOBIN 28.2 pg (27.0-31.0); MEAN CORPUSCULAR HGB CONC 31.6 g/dL (32.0-36.0); MEAN CORPUSCULAR VOLUME 89.3 fL (81.0-99.0); MEAN PLATELET VOLUME 10.1 fL (7.9-10.8); MONOCYTES # (AUTO) 0.6 10^3/uL (0.0-1.0); NEUTROPHILS # (AUTO) 4.3 10^3/uL (1.5-6.6); PLT - PLATELET COUNT 369 10^3/uL (130-450); RED BLOOD COUNT 4.19 10^6/uL (4.20-5.40); RED CELL DISTRIBUTION WIDTH 13.8 % (12.0-15.0); WHITE BLOOD COUNT 7.7 x10^3/uL (4.8-10.8)
[2022-03-05 05:46] LABS: ALBUMIN 4.1 g/dL (3.2-5.5); ALBUMIN/GLOBULIN RATIO 0.9 (1.0-2.2); BILIRUBIN,TOTAL 0.7 mg/dL (0.2-1.0); CALCIUM 7.9 mg/dL (8.5-10.3); CREATININE 0.9 mg/dL (0.4-1.0); POTASSIUM 3.1 mmol/L (3.5-5.0); TOTAL PROTEIN 8.5 g/dL (6.7-8.2)
[2022-03-05] MEDS ORDERED: iohexoL-300 100 ML VIAL ONE (06:19)
[2022-03-05] MEDS ORDERED: iohexoL-300 100 ML VIAL IVP ONE (06:53)
[2022-03-05] MEDS ORDERED: POTASSIUM CHLOR 10 MEQ/100 ML 10 MEQ/100 ML BAG IV STA (07:39)
--- NOTE | 2022-03-05 08:38 | ED Physician Documentation ---
ED Addendum - Addendum Addendum: 03/05/22 16:47 Patient received as signout from off going physician, please see their documentation for further detail. Patient's labs reviewed. 2-hour repeat troponin with positive uptrend and delta of approximately 40. Patient denies ongoing pain. Discussed with Dr. Gregory, cardiology at [facility] who does recommend transfer for cardiac work-up. In consultation with cardiology ordered echocardiogram which did not demonstrate focal or regional wall motion abnormality. Patient awaiting an available med telemetry bed. Will be signing out to the oncoming physician, please see their documentation for further detail.
[2022-03-05 08:42] LABS: B. PARAPERTUSSIS- RESP PCR PAN NOT DETECTED; B. PERTUSSIS- RESP PCR PANEL NOT DETECTED; C. PNEUMONIAE- RESP PCR PANEL NOT DETECTED; CORONAVIRUS 229E-RESP PCR NOT DETECTED; CORONAVIRUS HKU1-RESP PCR NOT DETECTED; CORONAVIRUS NL63-RESP PCR NOT DETECTED; CORONAVIRUS OC43-RESP PCR NOT DETECTED; HUMAN METAPNEUMOVIRUS NOT DETECTED; INFLUENZA A- RESP PCR PANEL NOT DETECTED; INFLUENZA B - RESP PCR PANEL NOT DETECTED; M. PNEUMONIAE- RESP PCR PANEL NOT DETECTED; PARAINFLUENZA VIRUS 1 NOT DETECTED; PARAINFLUENZA VIRUS 2 NOT DETECTED; PARAINFLUENZA VIRUS 3 NOT DETECTED; PARAINFLUENZA VIRUS 4 NOT DETECTED; RHINOVIRUS/ENTEROVIRUS NOT DETECTED; RSV- RESP PCR PANEL NOT DETECTED; SARS-CoV-2 -RESP PCR PANEL NOT DETECTED
--- NOTE | 2022-03-05 08:58 | XRAY Report ---
PROCEDURE: Chest 1 View X-Ray INDICATIONS: Chest Pain TECHNIQUE: One view of the chest was acquired. COMPARISON: Chest x-ray 01/11/2022 FINDINGS: Surgical changes and devices: None. Lungs and pleura: Minimal appearance of bibasilar coarsening. Mediastinum: Mediastinal contours appear normal. Heart size is normal. Bones and chest wall: No suspicious bony lesions. Overlying soft tissues appear unremarkable. IMPRESSION: Minimal bibasilar coarsening. While this could represent atelectasis versus dependent change, develop ing pneumonia cannot be definitively excluded Reviewed by: Amy Burns MD on 03/05/2022 8:57 AM PDT Approved by: Amy Burns MD on 03/05/2022 8:57 AM PDT Station ID: [id number]
--- NOTE | 2022-03-05 11:34 | CT Report ---
PROCEDURE: ANGIO CHEST W INDICATIONS: elevated dimer, pleuritic chest pain CONTRAST: IV CONTRAST: Isovue 300 ml: 80 PO CONTRAST: *NO PO CONTRAST TECHNIQUE: After the administration of intravenous contrast, 2 mm axial images were acquired from the pulmonary apices to the posterior costophrenic angles during the arterial phase. In addition, 1 mm lung kernel and 5 mm soft tissue kernel reconstructions were performed. 3-dimensional coronal oblique maximum int ensity projection (MIP) reformats, 8 mm axial MIP, and 5 mm coronal and sagittal MPR reformats were t hen performed through the thorax. For radiation dose reduction, the following was used: automated exp osure control, adjustment of mA and/or kV according to patient size. COMPARISON: CT chest without, 10/26/2019. FINDINGS: Image quality: Excellent. Pulmonary arteries: Pulmonary arteries are normal in size, and demonstrate no intraluminal filling d efects to suggest central pulmonary embolism. Lungs and pleura: Mild bilateral groundglass opacities with mosaic attenuation. There is a 1.1 cm nod ule in the right hilum (series 5 image 76). No pleural effusions or pneumothorax. Central and periph eral airways are patent. Mediastinum: Heart size is normal, without pericardial effusion. No mediastinal or hilar adenopathy . Thoracic aorta is normal in caliber and enhancement. Esophagus is normal in caliber. There is a t iny hiatal hernia. Bones and chest wall: No suspicious bony lesions. Ribs and thoracic spine appear intact throughout. No axillary or supraclavicular adenopathy. The thyroid is normal in size and there are no incident al findings. Abdomen: Visualized upper abdominal solid organs appear normal in the early arterial phase of enhanc ement. IMPRESSION: 1. No evidence for pulmonary embolism. 2. Mild bilateral groundglass opacities with mosaic attenuation. Differential diagnoses include pulmo nary edema versus bilateral pneumonitis/pneumonia. 3. A 1.1 cm nodule in the right hilum. Differential diagnoses a pulmonary nodule versus enlarged renny r lymph node. A short-term follow-up CT is recommended in 3 months. No significant discrepancy with the preliminary interpretation. Reviewed by: Henry Anglin MD on 03/05/2022 11:32 AM PDT Approved by: Henry Anglin MD on 03/05/2022 11:32 AM PDT Station ID: [id number]
[2022-03-05] MEDS ORDERED: ASPIRIN CHEW 81 MG TABLET PO STA (12:04)
[2022-03-05] MEDS: ENOXAPARIN 80 MG/0.8 ML SYRINGE SUBQ SCH ×2 (12:26→21:14)
[2022-03-05] MEDS: ATORVASTATIN 40 MG TABLET PO SCH (12:27)
[2022-03-05] MEDS ORDERED: LORazepam 2 MG/ML VIAL IVP STA (17:28)
[2022-03-05] MEDS ORDERED: LORazepam 1 MG TABLET PO PRN (18:46)
[2022-03-06 04:53] LABS: BASOPHILS % (AUTO) 0.6 %; EOSINOPHILS # (AUTO) 0.3 10^3/uL (0.0-0.7); EOSINOPHILS % (AUTO) 3.8 %; HCT - HEMATOCRIT 39.4 % (37.0-47.0); HGB - HEMOGLOBIN 12.3 g/dL (12.0-16.0); LYMPHOCYTES % (AUTO) 42.5 %; MEAN CORPUSCULAR HEMOGLOBIN 28.2 pg (27.0-31.0); MEAN CORPUSCULAR HGB CONC 31.2 g/dL (32.0-36.0); MEAN CORPUSCULAR VOLUME 90.4 fL (81.0-99.0); MONOCYTES # (AUTO) 0.7 10^3/uL (0.0-1.0); MONOCYTES % (AUTO) 9.6 %; NEUTROPHILS # (AUTO) 3.1 10^3/uL (1.5-6.6); NEUTROPHILS % (AUTO) 43.2 %; PLT - PLATELET COUNT 334 10^3/uL (130-450); RED BLOOD COUNT 4.36 10^6/uL (4.20-5.40); RED CELL DISTRIBUTION WIDTH 14.1 % (12.0-15.0); WHITE BLOOD COUNT 7.1 x10^3/uL (4.8-10.8)
[2022-03-06 05:01] LABS: CALCIUM 7.3 mg/dL (8.5-10.3); CREATININE 0.7 mg/dL (0.4-1.0); POTASSIUM 3.1 mmol/L (3.5-5.0)
[2022-03-06] MEDS ORDERED: ASPIRIN CHEW 81 MG TABLET PO SCH (09:00)
[2022-03-06] MEDS: ATORVASTATIN 40 MG TABLET PO SCH (09:56)
[2022-03-06] MEDS: ENOXAPARIN 80 MG/0.8 ML SYRINGE SUBQ SCH (09:56)
[2022-03-06 16:12] VITALS: BP 137/71
[2022-03-06] MEDS ORDERED: POTASSIUM CHLORIDE 20 MEQ TABLET PO STA (17:40)
--- NOTE | 2022-03-06 18:22 | ED Physician Documentation ---
ED Addendum - Addendum Addendum: 03/06/22 18:22 Briefly this is a 66-year-old woman who is seen about 36 hours ago for chest pain, yesterday they had consulted with [facility] cardiology who recommended transfer, specifically Dr. Gregory. Her troponin has trended down since then and an echocardiogram was done and read as normal without focal wall motion abnormalities. She has been chest pain-free since yesterday. She does complain of headache but she thinks that is because of stress and poor sleep last night and the fluorescent lights. Today we consulted with Dr. Gregory again and she feels that given the resolved symptoms, relatively insignificant peak and her troponin, and normal echo she could be managed as an outpatient. We will keep her on aspirin and add a statin and given her stress a few days worth of as needed lorazepam. Disposition: Discharged home , Condition: Stable Diagnosis: 1. Acute stress reaction 2. Resolved chest pain 3. Mild troponin elevation
== END 2022-03-06 19:54 | disposition home or self-care (01) ==
LOC: EDUNIT# → ED 04:45
DX: I21.4 Non-ST elevation (NSTEMI) myocardial infarction (principal); F43.0 Acute stress reaction; Z20.822 Contact with and (suspected) exposure to COVID-19
CPT/HCPCS: 36415; 71045; 71275; 80048; 80053; 83690; 83880; 84484; 85025; 85379; 87633; 93005; 93306; 99282; 99284; A9270; J1650; J2060; Q9967; 99281

== ENCOUNTER 2022-09-04 23:35 | Emergency (ER) | payer MEDICARE, OTHER ==
--- NOTE | 2022-09-05 01:36 | ED Physician Documentation ---
History of Present Illness - Stated complaint Stated Complaint: SWOLLEN LT LEG/SOA - Chief complaint Chief Complaint: Resp - History obtained from History obtained from: Patient - History of Present Illness Timing: How many days ago (2) - Additonal information Additional information: 67-year-old female who works 4 days a week at a [employer] and is on her feet most of the time has developed what she feels is some swelling to the left thigh. She noticed this when she went to put her pants on and felt that her left thigh was tighter. She is not having pain in that side she does feel that the swelling reaches down to the upper calf as well. She has not had these symptoms previously she denies any other specific symptoms other than chronic headache. Review of Systems Constitutional: denies: Fever, Chills Eyes: denies: Decreased vision Ears: denies: Ear pain Nose: denies: Rhinorrhea / runny nose, Congestion Throat: denies: Sore throat Cardiac: denies: Chest pain / pressure, Palpitations, Pedal edema, Calf pain Respiratory: denies: Dyspnea, Cough GI: denies: Abdominal Pain, Nausea, Vomiting, Constipation, Diarrhea : denies: Dysuria, Frequency Skin: denies: Rash Musculoskeletal: reports: Extremity swelling. 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 : None HEENT: None Psych: Depression Musculoskeletal: None Derm: None - Past Surgical History Past Surgical History: Yes General: Other - Present Medications Home Medications: Ambulatory Orders Medication Instructions Recorded Confirmed Aspirin [Aspir 81] 81 mg PO DAILY 11/28/14 03/05/22 Sertraline HCl [Zoloft] 100 mg PO DAILY 11/28/14 03/05/22 hydroCHLOROthiazide 1 tab PO DAILY 09/30/17 03/05/22 [Hydrochlorothiazide] Levothyroxine [Synthroid] 125 mcg PO QDAC 10/25/19 03/05/22 Metoprolol Succinate [Toprol Xl] 25 mg PO DAILY #30 tablet 03/06/22 Atorvastatin Calcium 40 mg PO DAILY 09/04/22 - Allergies Allergies/Adverse Reactions: Allergies Allergy/AdvReac Type Severity Reaction Status Date / Time lisinopril AdvReac Rash Verified 09/04/22 23:49 - Social History Does the pt smoke?: No Smoking Status: Never smoker Does the pt drink ETOH?: No Does the pt have substance abuse?: No - Immunizations Immunizations are current?: Yes - POLST Patient has POLST: No POLST Status: Full Code PD ED PE NORMAL - Vitals Vital signs reviewed: Yes (Hypertensive) - General General: Alert and oriented X 3, No acute distress, Well developed/nourished - HEENT HEENT: Atraumatic, PERRL, EOMI - Neck Neck: Supple, no meningeal sign, No bony TTP - Cardiac Cardiac: RRR, No murmur - Respiratory Respiratory: No respiratory distress, Clear bilaterally - Abdomen Abdomen: Normal bowel sounds, Soft, Non tender, Non distended, No organomegaly - Back Back: No CVA TTP, No spinal TTP - Derm Derm: Normal color, Warm and dry, No rash - Extremities Extremities: No deformity, No tenderness to palpate, Normal ROM s pain, No edema, No calf tenderness / cord, Other (I am having a hard time appreciating the amount of swelling the patient is experiencing.20 cm up from the patella on the right the circumference is 51 cm 20 cm up from the patella on the left the circumference is 54 cm.) - Neuro Neuro: Alert and oriented X 3, form carpenter 2-12 intact, No motor deficit, No sensory deficit, Normal speech Eye Opening: Spontaneous Motor: Obeys Commands Verbal: Oriented GCS Score: 15 - Psych Psych: Normal mood, Normal affect Results - Vitals Vitals: Vital Signs - 24 hr 09/04/22 09/05/22 09/05/22 23:46 03:31 05:08 Temperature 36.7 C Heart Rate 79 71 66 Respiratory 16 16 15 Rate Blood Pressure 173/88 H 174/79 H 178/75 H O2 Saturation 96 97 98 09/05/22 09/05/22 06:22 08:00 Temperature Heart Rate 54 L 68 Respiratory 15 16 Rate Blood Pressure 147/85 H 159/75 H O2 Saturation 92 99 Oxygen O2 Source Room air - EKG (time done) 0326 EKG releavant findings:: EKG personally interpreted by author of this note. Relevant findings are: Rate: Rate (enter#) (58) Rhythm: NSR Ischemia: Non specific changes Compare to prior EKG: Changed from prior EKG (SPT 03/05/22 lateral T wave flattening has developed. ) Computer interpretation: Agree with computer - Labs Labs: Laboratory Tests 09/05/22 09/05/22 09/05/22 01:36 01:36 01:36 WBC 8.4 RBC 4.27 Hgb 11.8 L Hct 37.7 MCV 88.3 MCH 27.6 MCHC 31.3 L RDW 14.6 Plt Count 367 MPV 10.0 Neut # (Auto) 3.5 Lymph # (Auto) 3.8 H [place] # (Auto) 0.7 Eos # (Auto) 0.4 Baso # (Auto) 0.0 Absolute Nucleated RBC 0.00 Nucleated RBC % 0.0 D-Dimer > 1050.0 H Sodium 139 Potassium 3.0 L Chloride 102 Carbon Dioxide 28 Anion Gap 9.0 BUN 19 Creatinine 0.8 Estimated GFR (MDRD) 71 L Glucose 109 H Calcium 8.2 L Total Bilirubin 0.3 AST 32 ALT 31 Alkaline Phosphatase 88 Total Protein 8.6 H Albumin 3.8 Globulin 4.8 H Albumin/Globulin Ratio 0.8 L Lipase 48 - Rads (name of study) CTA chest Relevant Findings:: Prelim report reviewed (Impression: 1. No CT evidence of pulmonary embolus. Normal caliber aorta thoracic aorta. Mild cardiomegaly without right heart strain. Mosaic attenuation of the lung delgadillo reflecting small airway disease. Probable reactive mediastinal and hilar lymph nodes. No pleural effusions.), EMP independent interpretation of test PD Medical Decision Making - ED course Complexity details: reviewed old records, reviewed results, re-evaluated patient, considered differential, d/w patient, d/w family ED course: 67-year-old female with swelling to her left thigh that is appreciated when she puts her pants on has a circumferential difference in the thighs. Today we do not have ultrasound available after midnight. I ordered a D-dimer which was markedly elevated at over 1000 and I interpreted this to indicate the possibility of fibrin clot somewhere in the body. I suspect this may be in the leg. I elected to perform a CTA of the chest to rule out pulmonary embolism As we do not have the ultrasound available. This test was without evidence of pulmonary embolism. I begin to make a plan to have the patient return to the emergency department for imaging and possible use of anticoagulant. By the time we were initiating this plan there is scant 45 minutes left before the urinalysis technician would arrive and the patient is elected to stay until she can be scanned. At shift change the ultrasound is being done and care of the patient is turned over to Dr. Rodriguez anticipating the results.
[2022-09-05 01:46] LABS: BASOPHILS % (AUTO) 0.5 %; EOSINOPHILS # (AUTO) 0.4 10^3/uL (0.0-0.7); EOSINOPHILS % (AUTO) 4.9 %; HCT - HEMATOCRIT 37.7 % (37.0-47.0); HGB - HEMOGLOBIN 11.8 g/dL (12.0-16.0); LYMPHOCYTES # (AUTO) 3.8 10^3/uL (1.5-3.5); LYMPHOCYTES % (AUTO) 44.4 %; MEAN CORPUSCULAR HEMOGLOBIN 27.6 pg (27.0-31.0); MEAN CORPUSCULAR HGB CONC 31.3 g/dL (32.0-36.0); MEAN CORPUSCULAR VOLUME 88.3 fL (81.0-99.0); MONOCYTES # (AUTO) 0.7 10^3/uL (0.0-1.0); MONOCYTES % (AUTO) 8.8 %; NEUTROPHILS # (AUTO) 3.5 10^3/uL (1.5-6.6); NEUTROPHILS % (AUTO) 41.2 %; PLT - PLATELET COUNT 367 10^3/uL (130-450); RED BLOOD COUNT 4.27 10^6/uL (4.20-5.40); RED CELL DISTRIBUTION WIDTH 14.6 % (12.0-15.0); WHITE BLOOD COUNT 8.4 x10^3/uL (4.8-10.8)
[2022-09-05 01:59] LABS: ALBUMIN 3.8 g/dL (3.2-5.5); ALBUMIN/GLOBULIN RATIO 0.8 (1.0-2.2); BILIRUBIN,TOTAL 0.3 mg/dL (0.2-1.0); CALCIUM 8.2 mg/dL (8.5-10.3); CREATININE 0.8 mg/dL (0.4-1.0); TOTAL PROTEIN 8.6 g/dL (6.7-8.2)
[2022-09-05] MEDS ORDERED: iohexoL-300 100 ML VIAL ONE (03:18)
[2022-09-05] MEDS ORDERED: iohexoL-300 100 ML VIAL IVP ONE (05:23)
[2022-09-05 08:10] VITALS: BP 159/75
--- NOTE | 2022-09-05 08:29 | ED Physician Documentation ---
ED Addendum - Addendum Addendum: 09/05/22 08:29 Patient was signed out to me by Dr. Gustafson awaiting duplex ultrasound left lower extremity due to thigh swelling. Her ultrasound is negative. There is no evidence of DVT. Patient is not having any pain in the leg. No significant swelling on exam. We will have her follow-up with her doctor for further care. Patient counseled regarding signs and symptoms for which I believe and urgent re-evaluation would be necessary. Patient with good understanding of and agreeme nt to plan and is comfortable going home at this time This document was made in part using voice recognition software. While efforts are made to proofread this document, sound alike and grammatical errors may occur. Departure - Departure Disposition: 01 Home, Self Care Clinical Impression: Leg swelling, Hypokalemia Condition: Good Instructions: ED Leg Swelling Unilateral Comments: Please follow-up with your doctor for further care. Please return if you worsen. Your laboratory testing, CT angiogram of the chest and ultrasound of your leg did not show any significant abnormalities. Your potassium level is mildly low and should be rechecked with your doctor in about a week.
--- NOTE | 2022-09-05 08:48 | Ultrasound Report ---
PROCEDURE: Duplex Ext Veins Left INDICATIONS: thigh swelling elevated D-dimer TECHNIQUE: Real-time imaging, as well as color and pulse Doppler interrogation, were performed of the lower extr emity deep veins from the inguinal ligament to the popliteal fossa. COMPARISON: None. FINDINGS: The deep veins are normally compressible, and free of intraluminal thrombus. Color and pu lse Doppler demonstrate normal phasic intraluminal flow. There is normal augmentation response to di stal compression maneuver. IMPRESSION: No DVT in the visualized lower extremity. Reviewed by: Ra Troncoso on 09/05/2022 8:47 AM PDT Approved by: Ra Troncoso on 09/05/2022 8:47 AM PDT Station ID: [id number]
--- NOTE | 2022-09-05 09:46 | CT Report ---
PROCEDURE: ANGIO CHEST W/WO INDICATIONS: leg swelling elevated D-dimer CONTRAST: Omni 300 100ml TECHNIQUE: After the administration of intravenous contrast, 2 mm axial images were acquired from the pulmonary apices to the posterior costophrenic angles during the arterial phase. In addition, 1 mm lung kernel and 5 mm soft tissue kernel reconstructions were performed. 3-dimensional coronal oblique maximum int ensity projection (MIP) reformats, 8 mm axial MIP, and 5 mm coronal and sagittal MPR reformats were t hen performed through the thorax. For radiation dose reduction, the following was used: automated exp osure control, adjustment of mA and/or kV according to patient size. COMPARISON: CT chest angiogram, 09/05/2022. FINDINGS: Image quality: Excellent. Large vessels: No filling defect within the opacified pulmonary arteries. No evidence of acute aortic syndrome. No thoracic aortic aneurysm. Lungs and pleura: There is mosaic attenuation in lungs bilaterally, predominantly involving the lower lobes. No pleural effusions. No pneumothorax. No suspicious pulmonary nodules which require follow up. Mediastinum: Heart size is normal. No pericardial effusions. Mildly enlarged right hilar lymph nodes are again noted, unchanged. No mediastinal adenopathy by size criteria. Small hiatal hernia. Chest wall and lower neck: Thyroid is unremarkable. No axillary or supraclavicular adenopathy by size . Bones: No aggressive osseous abnormality. Upper Abdomen: Unremarkable. IMPRESSION: 1. No evidence for pulmonary embolism. 2. Mosaic attenuation in lungs bilaterally, predominantly involving the lower lobes. Differential cheryl gnoses are small airway disease, mild pulmonary edema and bilateral pneumonitis/pneumonia. 3. Mild right hilar lymphadenopathy, unchanged and probably reactive. No significant discrepancy with the preliminary interpretation. Reviewed by: Henry Anglin MD on 09/05/2022 9:45 AM PDT Approved by: Henry Anglin MD on 09/05/2022 9:45 AM PDT Station ID: [id number]
== END 2022-09-05 08:53 | disposition home or self-care (01) ==
LOC: ED 23:35
DX: R22.42 Localized swelling, mass and lump, left lower limb (principal); E87.6 Hypokalemia
CPT/HCPCS: 36415; 71275; 80053; 83690; 85025; 85379; 93005; 93971; 99283; 99284; Q9967

== ENCOUNTER 2022-12-08 22:09 | Emergency (ER) | payer MEDICARE, OTHER ==
--- NOTE | 2022-12-08 22:29 | ED Physician Documentation ---
PD HPI CHEST PAIN - Stated complaint Stated Complaint: CHEST PX - Chief complaint Chief Complaint: Cardiac - History obtained from History obtained from: Patient - Additional information Additional information: 67-year-old woman with history of hypertension. She had a prolonged ED stay here due to boarding and inability to transfer her back in March of last year. During that time she was here for chest pain and she did develop a mild troponin elevation peaking at about 100. She was medically managed and after multiple consultations with cardiology at [facility] she was discharged home with fairly clear instructions to follow-up with [facility] looking at the discharge instructions. She did not. She continues to take aspirin and is taking hydrochlorothiazide for blood pressure. She is no longer on statin or beta- andrey. Around 430 today while at rest she developed left-sided substernal chest pressure that is nonradiating. It is not associated with shortness of breath, cough, pedal edema, calf pain, dizziness, or sweats. She does not recall if it was similar to the pain that brought her to the emergency department last March. Has been persistent now for about 6 hours. She denies recent travel. No hemoptysis. She does not smoke. Pain does get worse with deep breathing but again does not radiate. 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 : None HEENT: None Psych: Depression Musculoskeletal: None Derm: None - Past Surgical History Past Surgical History: Yes General: Other - Present Medications Home Medications: Ambulatory Orders Medication Instructions Recorded Confirmed Aspirin [Aspir 81] 81 mg PO DAILY 11/28/14 03/05/22 Sertraline HCl [Zoloft] 100 mg PO DAILY 11/28/14 03/05/22 hydroCHLOROthiazide 1 tab PO DAILY 09/30/17 03/05/22 [Hydrochlorothiazide] Levothyroxine [Synthroid] 125 mcg PO QDAC 10/25/19 03/05/22 Metoprolol Succinate [Toprol Xl] 25 mg PO DAILY #30 tablet 03/06/22 Atorvastatin Calcium 40 mg PO DAILY 09/04/22 - Allergies Allergies/Adverse Reactions: Allergies Allergy/AdvReac Type Severity Reaction Status Date / Time lisinopril AdvReac Rash Verified 09/04/22 23:49 - Social History Does the pt smoke?: No Smoking Status: Never smoker Does the pt drink ETOH?: No Does the pt have substance abuse?: No - Immunizations Immunizations are current?: Yes - POLST Patient has POLST: No POLST Status: Full Code PD ED PE NORMAL - Vitals Vital signs reviewed: Yes - General General: Alert and oriented X 3, No acute distress - HEENT HEENT: PERRL, EOMI - Neck Neck: Supple, no meningeal sign, No bony TTP - Cardiac Cardiac: RRR, No murmur - Respiratory Respiratory: No respiratory distress, Clear bilaterally - Abdomen Abdomen: Non tender - Extremities Extremities: No edema, No calf tenderness / cord - Neuro Neuro: Alert and oriented X 3, Normal speech Results - Vitals Vitals: Vital Signs - 24 hr 12/08/22 12/08/22 22:17 22:45 Temperature 36.5 C Heart Rate 77 82 Respiratory 18 14 Rate Blood Pressure 173/107 H 168/86 H O2 Saturation 99 98 Oxygen O2 Source Room air - EKG (time done) 2213 EKG releavant findings:: EKG personally interpreted by author of this note. Relevant findings are: Rate: Rate (enter#) (79) Rhythm: NSR, LAE [place]: Normal Intervals: Normal [place] QRS: Normal Ischemia: Non specific changes. No: ST elevation c/w ischemia, ST depression - Labs Labs: Laboratory Tests 12/08/22 12/08/22 12/08/22 22:26 22:26 22:26 WBC 9.6 RBC 4.32 Hgb 12.1 Hct 37.8 MCV 87.5 MCH 28.0 MCHC 32.0 RDW 13.6 Plt Count 354 MPV 9.9 Neut # (Auto) 5.0 Lymph # (Auto) 3.5 [place] # (Auto) 0.9 Eos # (Auto) 0.2 Baso # (Auto) 0.0 Absolute Nucleated RBC 0.00 Nucleated RBC % 0.0 Sodium 141 Potassium 2.9 L Chloride 102 Carbon Dioxide 29 Anion Gap 10.0 BUN 19 Creatinine 1.0 Estimated GFR (MDRD) 55 L Glucose 137 H Calcium 7.6 L Total Bilirubin 0.3 AST 30 ALT 25 Alkaline Phosphatase 84 Troponin I High Sens 8.7 Total Protein 8.7 H Albumin 3.9 Globulin 4.8 H Albumin/Globulin Ratio 0.8 L Lipase 51 PD Medical Decision Making - ED course ED course: CBC is normal. CMP showing modest hypokalemia and hypocalcemia. These will be repleted orally. Her initial troponin was negative which is reassuring. Given the short time course we will repeat a troponin after approximately 2 hours after the first 1. This would be at approximately 12:[address] Archer at 11 PM shift change to order and follow-up on repeat troponin. Also, while her chest x-ray looks normal to me I will asked Dr. Arhcer to follow-up on the final read. Departure - Departure Clinical Impression: Chest pain, Hypocalcemia, Hypokalemia Condition: Stable
[2022-12-08 22:30] LABS: BASOPHILS % (AUTO) 0.4 %; EOSINOPHILS # (AUTO) 0.2 10^3/uL (0.0-0.7); EOSINOPHILS % (AUTO) 2.2 %; HCT - HEMATOCRIT 37.8 % (37.0-47.0); HGB - HEMOGLOBIN 12.1 g/dL (12.0-16.0); LYMPHOCYTES # (AUTO) 3.5 10^3/uL (1.5-3.5); LYMPHOCYTES % (AUTO) 36.7 %; MEAN CORPUSCULAR VOLUME 87.5 fL (81.0-99.0); MEAN PLATELET VOLUME 9.9 fL (7.9-10.8); MONOCYTES # (AUTO) 0.9 10^3/uL (0.0-1.0); MONOCYTES % (AUTO) 8.8 %; NEUTROPHILS % (AUTO) 51.8 %; PLT - PLATELET COUNT 354 10^3/uL (130-450); RED BLOOD COUNT 4.32 10^6/uL (4.20-5.40); RED CELL DISTRIBUTION WIDTH 13.6 % (12.0-15.0); WHITE BLOOD COUNT 9.6 x10^3/uL (4.8-10.8)
[2022-12-08 22:45] LABS: ALBUMIN 3.9 g/dL (3.2-5.5); ALBUMIN/GLOBULIN RATIO 0.8 (1.0-2.2); BILIRUBIN,TOTAL 0.3 mg/dL (0.2-1.0); CALCIUM 7.6 mg/dL (8.5-10.3); POTASSIUM 2.9 mmol/L (3.5-5.0); TOTAL PROTEIN 8.7 g/dL (6.7-8.2)
[2022-12-08] MEDS: NITROGLYCERIN SL 0.4 MG TABLET SL STA (22:47)
[2022-12-08] MEDS: NITROGLYCERIN 2% PASTE TOP STA (22:47)
[2022-12-08] MEDS: METOPROLOL TARTRATE 50 MG TABLET PO STA (22:47)
[2022-12-08] MEDS: CALCIUM CARBONATE CHEW 500 MG TABLET PO STA (22:51)
[2022-12-08] MEDS: POTASSIUM BICARB 25 MEQ TABLET PO STA (22:51)
--- NOTE | 2022-12-09 00:50 | XRAY Report ---
PROCEDURE: Chest 1 View X-Ray INDICATIONS: Chest Pain TECHNIQUE: One view of the chest was acquired. COMPARISON: Chest x-ray 03/05/2022. FINDINGS: Surgical changes and devices: None. Lungs and pleura: No pleural effusions or pneumothorax. No acute consolidation. There is a nodular o pacity projecting on the right lung base likely representing confluence of vascular and rib structure s. Mediastinum: Mediastinal contours appear normal. Heart size is normal. Bones and chest wall: No suspicious bony lesions. Overlying soft tissues appear unremarkable. IMPRESSION: 1. No definite acute cardiopulmonary disease. Reviewed by: Kelvin Israel MD on 12/09/2022 12:48 AM PDT Approved by: Kelvin Israel MD on 12/09/2022 12:48 AM PDT Station ID: [id number]
[2022-12-09 02:06] VITALS: BP 142/99
--- NOTE | 2022-12-09 04:47 | ED Physician Documentation ---
ED Addendum - Addendum Addendum: 12/09/22 04:41 I received turnover of care on this patient from Dr. Dixon; please see his note for complete history and physical. Patient had presented for chest pain, and work-up thus far is unremarkable. At the time of turnover of care, the radiologist's interpretation of chest x-ray is pending. The other aspect of the turnover of care is to undertake a 2-hour repeat troponin. Radiologist interpretation of the chest x-ray is "no definite acute cardiopulmonary disease". The repeat troponin (performed 2-1/2 hours after the initial) is 12.1 (initial troponin was 8.7). Both of these troponin values are within normal limits, and the delta between the two is insignificant. I reviewed these results with the patient and the family member that is at patient's bedside. I emphasized a point that had already been made by Dr. Dixon to the patient, which is that it is of paramount importance to seek cardiology follow-up. She will likely need a referral for this, and I instructed her to contact her primary care provider's office when they open later this morning to inquire about the referral process.The patient expresses understanding of, and plan to comply with, this recommendation.
== END 2022-12-09 01:59 | disposition home or self-care (01) ==
LOC: ED 22:09
DX: R07.89 Other chest pain (principal); E83.51 Hypocalcemia; E87.6 Hypokalemia; I10 Essential (primary) hypertension; E11.9 Type 2 diabetes mellitus without complications; E05.90 Thyrotoxicosis, unspecified without thyrotoxic crisis or storm; Z79.82 Long term (current) use of aspirin; Z79.899 Other long term (current) drug therapy
CPT/HCPCS: 36415; 71045; 80053; 83690; 84484; 85025; 93005; 99283; 99284; A9270

== ENCOUNTER 2023-07-16 22:04 | Outpatient (CLI) | payer MEDICARE, OTHER | END 2023-07-16 22:05 | disposition critical access hospital (66) | LOC: EMS 22:04 | DX: R07.9 Chest pain, unspecified (principal); R41.0 Disorientation, unspecified; I10 Essential (primary) hypertension | CPT/HCPCS: A0425; A0427 ==

== ENCOUNTER 2023-07-16 22:25 | Emergency (ER) | payer MEDICARE, OTHER ==
--- NOTE | 2023-07-16 22:32 | ED Physician Documentation ---
PD HPI CHEST PAIN - Stated complaint Stated Complaint: CHEST PX - Chief complaint Chief Complaint: Cardiac - History obtained from History obtained from: Patient, EMS - Additional information Additional information: In March 2022 she was here for chest pain and had a mild troponin bump with her troponin going up to 100. She could not be transferred anywhere because of hospital capacity and boarding issues and subsequently was discharged home. She was advised to follow-up with cardiology which was not immediately done and then was seen here again in November of last year at which point she was also here for chest pain but had a negative workup at the time. She had not seen cardiology yet but was admonished again that she would need to see cardiology. She says she has followed up with cardiology in the interim and thinks she had a negative stress test. Just prior to arrival, just about 30 minutes ago, maybe at 10 AM she developed sharp anterior nonradiating substernal chest pain that is worse with palpation according to EMS. Prehospital EKG was unremarkable and blood pressure was up to 200/100. She was given prehospital aspirin and 2 rounds of nitroglycerin which did not resolve in any pain relief. Her main complaint when I see her is that she needs to go to the bathroom and declines any pain medication for the chest pain. 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 : None HEENT: None Psych: Depression Musculoskeletal: None Derm: None - Past Surgical History Past Surgical History: Yes General: Other - Present Medications Home Medications: Ambulatory Orders Medication Instructions Recorded Confirmed Aspirin [Aspir 81] 81 mg PO DAILY 11/28/14 07/16/23 Atorvastatin [Lipitor] 10 mg PO HS 07/16/23 07/16/23 Calcium Carbonate/Vitamin D3 1 each PO DAILY 07/16/23 07/16/23 [Calcium 600-Vit D3 800 Tablet] Levothyroxine Sodium [Synthroid] 100 mcg PO DAILY 07/16/23 07/16/23 Losartan [Cozaar] 50 mg PO DAILY 07/16/23 07/16/23 Sertraline HCl 100 mg PO DAILY 07/16/23 07/16/23 - Allergies Allergies/Adverse Reactions: Allergies Allergy/AdvReac Type Severity Reaction Status Date / Time lisinopril AdvReac Rash Verified 07/16/23 22:34 - Social History Does the pt smoke?: No Smoking Status: Never smoker Does the pt drink ETOH?: No Does the pt have substance abuse?: No - Immunizations Immunizations are current?: Yes - POLST Patient has POLST: No POLST Status: Full Code PD ED PE NORMAL - Vitals Vital signs reviewed: Yes - General General: Other (Question of mild confusion. She seems to have poor recollection of events.) - HEENT HEENT: PERRL, EOMI - Neck Neck: Supple, no meningeal sign, No bony TTP - Cardiac Cardiac: RRR, No murmur - Respiratory Respiratory: No respiratory distress, Clear bilaterally - Abdomen Abdomen: Non tender - Extremities Extremities: No edema, No calf tenderness / cord - Neuro Neuro: nutritional services cook 2-12 intact Eye Opening: Spontaneous Motor: Obeys Commands Results - Vitals Vitals: Vital Signs - 24 hr 07/16/23 07/16/23 07/16/23 22:23 22:30 23:00 Temperature 36.4 C L Heart Rate 95 78 82 Respiratory 22 20 19 Rate Blood Pressure 157/111 H 156/82 H 157/88 H O2 Saturation 97 97 92 07/16/23 07/17/23 07/17/23 23:30 00:00 00:30 Temperature Heart Rate 65 68 81 Respiratory 19 12 17 Rate Blood Pressure 164/90 H 160/91 H O2 Saturation 96 98 96 07/17/23 07/17/23 01:00 01:38 Temperature Heart Rate 72 68 Respiratory 16 18 Rate Blood Pressure 182/98 H 179/93 H O2 Saturation 97 97 Oxygen O2 Source Room air - EKG (time done) 2230 EKG releavant findings:: EKG personally interpreted by author of this note. Relevant findings are: Rate: Rate (enter#) (68) Rhythm: NSR [place]: Normal Intervals: Normal [place] QRS: Normal Ischemia: Normal ST segments. No: ST elevation c/w ischemia, ST depression - Labs Labs: Laboratory Tests 07/16/23 07/16/23 07/17/23 22:39 22:39 00:19 WBC 8.7 RBC 4.40 Hgb 12.3 Hct 39.8 MCV 90.5 MCH 28.0 MCHC 30.9 L RDW 13.9 Plt Count 323 MPV 10.5 Neut # (Auto) 3.9 Lymph # (Auto) 4.0 H [place] # (Auto) 0.7 Eos # (Auto) 0.1 Baso # (Auto) 0.0 Absolute Nucleated RBC 0.00 Nucleated RBC % 0.0 Sodium 141 Potassium 3.0 L Chloride 103 Carbon Dioxide 27 Anion Gap 11.0 BUN 13 Creatinine 0.8 Estimated GFR (MDRD) 71 L Glucose 96 Calcium 7.7 L Total Bilirubin 0.4 AST 30 ALT 24 Alkaline Phosphatase 97 Troponin I High Sens 10.6 16.4 H* Total Protein 8.3 Albumin 4.2 Globulin 4.1 Albumin/Globulin Ratio 1.0 Lipase 38 PD Medical Decision Making - ED course ED course: 68 yo F with acute CP. Hx trop elevation in the past w CP but neg subsequent w/u per her. Nothing in the HX/PE to suggest dissection or PE. Initial trop neg, but quick timecourse so will need second trop. Care to Dr Guadarrama at 11p pending 2 hour trop. Departure - Departure Disposition: 01 Home, Self Care Clinical Impression: Chest pain Qualifiers: Chest pain type: unspecified Qualified Code(s): R07.9 - Chest pain, unspecified Condition: Stable Instructions: ED Chest Pain Atypical Unkn Cause Comments: You were seen in the emergency department for chest pain. Your labwork uncovered no emergent cause for your symptoms but you may need further testing. Please follow-up with your primary care provider and return to the emergency department if you have any new or worsening symptoms or other concerns. Forms: PCP List Discharge Date/Time: 07/17/23 01:38
[2023-07-16 22:46] LABS: BASOPHILS % (AUTO) 0.5 %; EOSINOPHILS # (AUTO) 0.1 10^3/uL (0.0-0.7); EOSINOPHILS % (AUTO) 1.4 %; HCT - HEMATOCRIT 39.8 % (37.0-47.0); HGB - HEMOGLOBIN 12.3 g/dL (12.0-16.0); LYMPHOCYTES % (AUTO) 45.8 %; MEAN CORPUSCULAR HGB CONC 30.9 g/dL (32.0-36.0); MEAN CORPUSCULAR VOLUME 90.5 fL (81.0-99.0); MEAN PLATELET VOLUME 10.5 fL (7.9-10.8); MONOCYTES # (AUTO) 0.7 10^3/uL (0.0-1.0); MONOCYTES % (AUTO) 8.1 %; NEUTROPHILS # (AUTO) 3.9 10^3/uL (1.5-6.6); NEUTROPHILS % (AUTO) 44.1 %; PLT - PLATELET COUNT 323 10^3/uL (130-450); RED CELL DISTRIBUTION WIDTH 13.9 % (12.0-15.0); WHITE BLOOD COUNT 8.7 x10^3/uL (4.8-10.8)
[2023-07-16 23:00] LABS: ALBUMIN 4.2 g/dL (3.2-5.5); BILIRUBIN,TOTAL 0.4 mg/dL (0.2-1.0); CALCIUM 7.7 mg/dL (8.5-10.3); CREATININE 0.8 mg/dL (0.6-1.3); TOTAL PROTEIN 8.3 g/dL (6.4-8.9)
[2023-07-16 23:02] LABS: TROPONIN I HIGH SENSITIVITY 10.6 ng/L (2.3-14.8)
[2023-07-16] MEDS: POTASSIUM BICARB 25 MEQ TABLET PO STA (23:13)
--- NOTE | 2023-07-16 23:32 | ED Physician Documentation ---
ED Addendum - Addendum Addendum: 07/17/23 01:18 Patient endorsed to me by Dr. Lowry awaiting second troponin at 0039. This was negative. She is in no acute distress, resting quietly in bed. Plan to f/u outpatient with her pcp. return precautions given. Impression 1 chest pain Condition stable Disposition - discharge to home
--- NOTE | 2023-07-17 00:14 | XRAY Report ---
PROCEDURE: Chest 1V INDICATIONS: Chest Pain TECHNIQUE: One view of the chest was acquired. COMPARISON: Chest radiograph 12/08/2022. FINDINGS: Surgical changes and devices: None. Lungs and pleura: No pleural effusions or pneumothorax. Lungs are clear. Mediastinum: Mediastinal contours appear normal. Heart size is normal. Bones and chest wall: No suspicious bony lesions. Overlying soft tissues appear unremarkable. IMPRESSION: No acute cardiopulmonary process. Reviewed by: Tena Hammer MD on 07/17/2023 12:12 AM PST Approved by: Tena Hammer MD on 07/17/2023 12:12 AM PST Station ID: [id number]
[2023-07-17 01:11] VITALS: O2SAT 97
[2023-07-17 01:49] VITALS: BP 179/93
== END 2023-07-17 01:38 | disposition home or self-care (01) ==
LOC: EDUNIT# → ED 22:25
DX: R07.9 Chest pain, unspecified (principal); I10 Essential (primary) hypertension; E11.9 Type 2 diabetes mellitus without complications
CPT/HCPCS: 36415; 71045; 80053; 83690; 84484; 85025; 93005; 99283; 99284; A9270

== ENCOUNTER 2023-07-20 18:25 | Emergency (ER) | payer MEDICARE, OTHER ==
[2023-07-20 19:21] LABS: BASOPHILS % (AUTO) 0.4 %; EOSINOPHILS # (AUTO) 0.1 10^3/uL (0.0-0.7); HCT - HEMATOCRIT 40.1 % (37.0-47.0); HGB - HEMOGLOBIN 12.3 g/dL (12.0-16.0); LYMPHOCYTES # (AUTO) 3.3 10^3/uL (1.5-3.5); LYMPHOCYTES % (AUTO) 40.1 %; MEAN CORPUSCULAR HEMOGLOBIN 27.5 pg (27.0-31.0); MEAN CORPUSCULAR HGB CONC 30.7 g/dL (32.0-36.0); MEAN CORPUSCULAR VOLUME 89.5 fL (81.0-99.0); MONOCYTES # (AUTO) 0.8 10^3/uL (0.0-1.0); MONOCYTES % (AUTO) 9.4 %; NEUTROPHILS % (AUTO) 48.9 %; PLT - PLATELET COUNT 331 10^3/uL (130-450); RED BLOOD COUNT 4.48 10^6/uL (4.20-5.40); RED CELL DISTRIBUTION WIDTH 14.2 % (12.0-15.0); WHITE BLOOD COUNT 8.1 x10^3/uL (4.8-10.8)
[2023-07-20 19:35] LABS: ALBUMIN 4.3 g/dL (3.2-5.5); BILIRUBIN,TOTAL 0.3 mg/dL (0.2-1.0); CALCIUM 7.7 mg/dL (8.5-10.3); CREATININE 0.8 mg/dL (0.6-1.3); POTASSIUM 3.4 mmol/L (3.5-4.5); TOTAL PROTEIN 8.6 g/dL (6.4-8.9)
[2023-07-20 19:41] LABS: TROPONIN I HIGH SENSITIVITY 7.3 ng/L (2.3-14.8)
--- NOTE | 2023-07-20 19:54 | ED Physician Documentation ---
History of Present Illness - Stated complaint Stated Complaint: HIGH BP,CHEST PX - Chief complaint Chief Complaint: Cardiac - History obtained from History obtained from: Patient, Family - History of Present Illness Timing: Today Pain level max: 0 Pain level now: 0 - Additonal information Additional information: 68-year-old female presents to the emergency department stating that she has been concerned about her high blood pressure all day. Is taking her blood pressure 36 times in the past 12 hours. She states it has been high today. Recently had her medications changed. She states she had 1 second of right- sided "chest pain". She states that recurred once, also for 1 second. Currently is asymptomatic. No headache. No focal neurological deficits. No abdominal pain, nausea, vomiting. No shortness of breath. Nothing makes it better or worse. 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 : None HEENT: None Psych: Depression, Anxiety Musculoskeletal: None Derm: None - Past Surgical History Past Surgical History: Yes General: Other - Present Medications Home Medications: Ambulatory Orders Medication Instructions Recorded Confirmed Aspirin [Aspir 81] 81 mg PO DAILY 11/28/14 07/20/23 Atorvastatin [Lipitor] 10 mg PO HS 07/16/23 07/20/23 Calcium Carbonate/Vitamin D3 1 each PO DAILY 07/16/23 07/20/23 [Calcium 600-Vit D3 800 Tablet] Levothyroxine Sodium [Synthroid] 100 mcg PO DAILY 07/16/23 07/20/23 Losartan [Cozaar] 50 mg PO DAILY 07/16/23 07/20/23 Sertraline HCl 100 mg PO DAILY 07/16/23 07/20/23 - Allergies Allergies/Adverse Reactions: Allergies Allergy/AdvReac Type Severity Reaction Status Date / Time lisinopril AdvReac Rash Verified 07/20/23 18:29 - Social History Does the pt smoke?: No Smoking Status: Never smoker Does the pt drink ETOH?: No Does the pt have substance abuse?: No - Immunizations Immunizations are current?: Yes - POLST Patient has POLST: No POLST Status: Full Code PD ED PE NORMAL - Vitals Vital signs reviewed: Yes - General General: Alert and oriented X 3, No acute distress - HEENT HEENT: Moist mucous membranes - Neck Neck: Supple, no meningeal sign - Cardiac Cardiac: RRR, No murmur, Strong equal pulses - Respiratory Respiratory: No respiratory distress, Clear bilaterally - Abdomen Abdomen: Soft, Non tender, Non distended - Derm Derm: Warm and dry - Extremities Extremities: No edema, No calf tenderness / cord - Neuro Neuro: Alert and oriented X 3, wellness consultant 2-12 intact, No motor deficit, No sensory deficit, Normal speech Eye Opening: Spontaneous Motor: Obeys Commands Verbal: Oriented GCS Score: 15 - Psych Psych: Normal mood, Normal affect Results - Vitals Vitals: Vital Signs - 24 hr 07/20/23 07/20/23 18:30 20:05 Temperature 36.6 C Heart Rate 90 69 Respiratory 18 18 Rate Blood Pressure 187/99 H 165/103 H O2 Saturation 99 95 Oxygen O2 Source Room air - EKG (time done) 1842 EKG releavant findings:: EKG personally interpreted by author of this note. Relevant findings are: Rate: Rate (enter#) (65) Rhythm: NSR [place]: Normal Intervals: Normal NM QRS: Normal Ischemia: Non specific changes (flat t wave v6) - Labs Labs: Laboratory Tests 07/20/23 07/20/23 19:15 19:15 WBC 8.1 RBC 4.48 Hgb 12.3 Hct 40.1 MCV 89.5 MCH 27.5 MCHC 30.7 L RDW 14.2 Plt Count 331 MPV 10.0 Neut # (Auto) 4.0 Lymph # (Auto) 3.3 Caroline # (Auto) 0.8 Eos # (Auto) 0.1 Baso # (Auto) 0.0 Absolute Nucleated RBC 0.00 Nucleated RBC % 0.0 Sodium 142 Potassium 3.4 L Chloride 103 Carbon Dioxide 29 Anion Gap 10.0 BUN 12 Creatinine 0.8 Estimated GFR (MDRD) 71 L Glucose 76 Calcium 7.7 L Total Bilirubin 0.3 AST 22 ALT 18 Alkaline Phosphatase 96 Troponin I High Sens 7.3 Total Protein 8.6 Albumin 4.3 Globulin 4.3 H Albumin/Globulin Ratio 1.0 Lipase 40 - Rads (name of study) cxr Relevant Findings:: Final report received, See rad report PD Medical Decision Making - ED course Complexity details: reviewed results, re-evaluated patient, considered differential, d/w patient, d/w family ED course: No acute findings on chest x-ray, EKG, laboratory testing. Has chronic mild hypocalcemia. No evidence of acute coronary syndrome. Symptoms or not consistent with acute coronary syndrome. Unclear why she is checking her blood pressure 36 times per day. Recommend that she only check it once in the morning, once at night and keep a log for her doctor. Patient is otherwise asymptomatic here. Blood pressure decreased on its own. No focal neurological deficits. No significant lab abnormalities. Will have her follow-up with her doctor for further care. Patient counseled regarding signs and symptoms for which I believe and urgent re-evaluation would be necessary. Patient with good understanding of and agreement to plan and is comfortable going home at this time This document was made in part using voice recognition software. While efforts are made to proofread this document, sound alike and grammatical errors may occur. Departure - Departure Disposition: 01 Home, Self Care Clinical Impression: Atypical chest pain Hypertension Qualifiers: Hypertension type: unspecified Qualified Code(s): I10 - Essential (primary) hypertension Condition: Good Instructions: ED Chest Pain Atypical Unkn Cause, ED HTN Established Follow-Up: your,doctor in 1 week [Other] Comments: Your heart tests do not show any abnormalities today. Please follow up with your doctor for further care. Continue you current medications. Please return if you worsen. As we discussed your blood pressure is a long-term control issue, not a short-term control issue. Return for severe headaches, chest pain, shortness of breath or other new or worrisome symptoms. Forms: PCP List Discharge Date/Time: 07/20/23 20:06
[2023-07-20 20:12] VITALS: BP 165/103; O2SAT 95
--- NOTE | 2023-07-20 20:14 | XRAY Report ---
PROCEDURE: Chest 1V INDICATIONS: Chest Pain TECHNIQUE: One view of the chest was acquired. COMPARISON: 07/16/2023, 12/08/2022 FINDINGS: Surgical changes and devices: None. Lungs and pleura: No pleural effusions or pneumothorax. Mild streaky bibasilar opacities not signifi cantly changed. No definite consolidation seen. Mediastinum: Mediastinal contours appear normal. Heart size is normal. Bones and chest wall: No suspicious bony lesions. Overlying soft tissues appear unremarkable. IMPRESSION: Mild streaky bibasilar opacities favored to represent atelectasis. No new focal consolidation identif ied. No acute cardiopulmonary abnormalities. Reviewed by: Leon Estrada MD on 07/20/2023 8:13 PM PST Approved by: Leon Estrada MD on 07/20/2023 8:13 PM PST Station ID: [id number]
== END 2023-07-20 20:06 | disposition home or self-care (01) ==
LOC: ED 18:25
DX: R07.9 Chest pain, unspecified (principal); I10 Essential (primary) hypertension; E78.00 Pure hypercholesterolemia, unspecified; E11.9 Type 2 diabetes mellitus without complications; E05.90 Thyrotoxicosis, unspecified without thyrotoxic crisis or storm; Z79.82 Long term (current) use of aspirin; Z79.899 Other long term (current) drug therapy
CPT/HCPCS: 36415; 80053; 83690; 84484; 85025; 93005; 99283; 99284